=== PATIENT | female | born 1935 | race Two or more races ===

== ENCOUNTER → 2020-11-16 13:26 | Outpatient (CLI) | payer MEDICARE, OTHER, SELFPAY ==
[2020-11-16 14:24] VITALS: BP 121/35; PULSE 65; RESP 18; TEMP 36; O2SAT 97; BMI 25.4
[2020-11-16] MEDS: 0.9% NaCl Peripheral Flush Adult/Peds IV (14:41)
[2020-11-16] MEDS: Acetaminophen 325 MG Tablet 650 MG PO (14:44)
[2020-11-16 15:15] VITALS: BP 148/50; PULSE 65; RESP 16; TEMP 36.1; O2SAT 99
[2020-11-16 16:16] VITALS: BP 149/47; PULSE 62; RESP 16; TEMP 36; O2SAT 97
== END ==
PROVIDERS: PCP Student in an Organized Health Care Education/Training Program; Referring Provider Internal Medicine Hematology & Oncology; Visit Provider Internal Medicine Hematology & Oncology
DX: D46.4 Refractory anemia, unspecified (principal)
CPT/HCPCS: 36430; 86850; 86900; 86901; 86920; 86922; J7040; P9016; A4216

== ENCOUNTER → 2020-12-06 17:13 | Outpatient (CLI) | payer MEDICARE, OTHER, SELFPAY ==
[2020-12-07] MEDS: Acetaminophen 325 MG Tablet 650 MG PO (13:35)
[2020-12-07] MEDS: 0.9% NaCl Peripheral Flush Adult/Peds IV (13:36)
[2020-12-07 13:37] VITALS: BP 132/43; PULSE 62; RESP 16; TEMP 36.4; O2SAT 100; BMI 25.2
[2020-12-07 14:06] VITALS: BP 132/44; PULSE 63; RESP 16; TEMP 36.4; O2SAT 99
[2020-12-07 15:03] VITALS: BP 147/49; PULSE 62; RESP 18; TEMP 36.7
[2020-12-07 16:00] VITALS: BP 149/57; PULSE 63; RESP 16; TEMP 36.4; O2SAT 98
== END ==
PROVIDERS: PCP Student in an Organized Health Care Education/Training Program; Referring Provider Internal Medicine Hematology & Oncology; Visit Provider Internal Medicine Hematology & Oncology
DX: D46.4 Refractory anemia, unspecified (principal)
CPT/HCPCS: 36430; 86850; 86900; 86901; 86920; 86922; J7040; P9040; A4216

== ENCOUNTER → 2021-01-11 12:03 | Outpatient (CLI) | payer MEDICARE, OTHER, SELFPAY ==
[2021-01-11 12:43] VITALS: BP 107/36; PULSE 72; RESP 16; TEMP 36.9; O2SAT 100
[2021-01-11] MEDS: Acetaminophen 325 MG Tablet 650 MG PO (13:08)
[2021-01-11] MEDS: 0.9% NaCl Peripheral Flush Adult/Peds IV (13:09)
[2021-01-11 13:27] VITALS: BP 106/30; PULSE 72; RESP 16; TEMP 36.8; O2SAT 100
[2021-01-11 15:10] VITALS: BP 125/52; PULSE 72; RESP 16; TEMP 36.6; O2SAT 100
== END ==
PROVIDERS: PCP Student in an Organized Health Care Education/Training Program; Referring Provider Internal Medicine Hematology & Oncology; Visit Provider Internal Medicine Hematology & Oncology
DX: D46.4 Refractory anemia, unspecified (principal)
CPT/HCPCS: 36430; 86850; 86900; 86901; 86920; 86922; J7040; P9040; A4216

== ENCOUNTER → 2021-02-01 08:06 | Outpatient (CLI) | payer MEDICARE, OTHER, SELFPAY ==
[2021-02-01] VITALS (8 sets, daily range): BP systolic 110–131; BP diastolic 47–57; PULSE 71–78; RESP 16; TEMP 36.6–37.1; O2SAT 92–100
== END ==
PROVIDERS: PCP Student in an Organized Health Care Education/Training Program; Referring Provider Internal Medicine Hematology & Oncology; Visit Provider Internal Medicine Hematology & Oncology
DX: D46.20 Refractory anemia with excess of blasts, unspecified (principal)
CPT/HCPCS: 36430; 86850; 86900; 86901; 86920; 86922; J7050; P9016; A4216

== ENCOUNTER 2021-03-01 13:00 | Outpatient (CLI) | payer MEDICARE, OTHER, SELFPAY ==
[2021-03-01] MEDS: Acetaminophen 325 MG Tablet 650 MG PO (13:18)
[2021-03-01] MEDS: 0.9% NaCl Peripheral Flush Adult/Peds IV (13:23)
[2021-03-01 13:36] VITALS: BP 118/36; RESP 16; TEMP 36.8; O2SAT 96; BMI 27.1
[2021-03-01 14:37] VITALS: BP 111/43; PULSE 73; RESP 16; TEMP 36.6; O2SAT 100
[2021-03-01 15:55] VITALS: BP 149/53; PULSE 73; RESP 16; TEMP 36.6; O2SAT 100
[2021-03-01 16:36] VITALS: BP 127/51; PULSE 72; RESP 16; TEMP 36.5; O2SAT 100
== END 2021-03-01 23:59 | disposition short-term general hospital (02) ==
PROVIDERS: PCP Student in an Organized Health Care Education/Training Program; Referring Provider Internal Medicine Hematology & Oncology; Visit Provider Internal Medicine Hematology & Oncology
DX: D46.4 Refractory anemia, unspecified (principal)
CPT/HCPCS: 36430; 86850; 86900; 86901; 86920; 86922; J7040; P9016; A4216

== ENCOUNTER 2021-04-05 12:52 | Outpatient (CLI) | payer MEDICARE, OTHER, SELFPAY ==
[2021-04-05] MEDS: Acetaminophen 325 MG Tablet 650 MG PO (13:37)
[2021-04-05 13:39] VITALS: BP 107/31; PULSE 85; RESP 16; TEMP 36.4; O2SAT 94
[2021-04-05] MEDS: 0.9% NaCl Peripheral Flush Adult/Peds IV (13:39)
[2021-04-05 14:31] VITALS: BP 113/32; PULSE 71; RESP 16; TEMP 36.1; O2SAT 93
[2021-04-05 16:01] VITALS: BP 119/38; PULSE 73; RESP 16; TEMP 36.3; O2SAT 95
== END 2021-04-05 23:59 | disposition home or self-care (01) ==
LOC: MEDOUTP 12:54
PROVIDERS: PCP Student in an Organized Health Care Education/Training Program; Referring Provider Internal Medicine Hematology & Oncology; Visit Provider Internal Medicine Hematology & Oncology
DX: D46.4 Refractory anemia, unspecified (principal)
CPT/HCPCS: 36430; 86850; 86900; 86901; 86920; 86922; J7040; P9040; A4216

== ENCOUNTER 2021-04-26 08:42 | Outpatient (CLI) | payer MEDICARE, OTHER, SELFPAY ==
[2021-04-26] MEDS: Acetaminophen 325 MG Tablet 650 MG PO (08:55)
[2021-04-26 09:21] VITALS: BP 106/38; PULSE 73; RESP 16; TEMP 36.3; O2SAT 95
[2021-04-26] MEDS: 0.9% NaCl Peripheral Flush Adult/Peds IV (09:24)
[2021-04-26 09:46] VITALS: BP 107/44; RESP 18; TEMP 36.2
[2021-04-26 10:46] VITALS: BP 114/76; PULSE 72; RESP 16; TEMP 36.2
[2021-04-26 12:00] VITALS: BP 131/57; PULSE 73; RESP 16; TEMP 36.2
== END 2021-04-26 23:59 | disposition home or self-care (01) ==
LOC: MEDOUTP 08:42
PROVIDERS: PCP Student in an Organized Health Care Education/Training Program; Referring Provider Internal Medicine Hematology & Oncology; Visit Provider Internal Medicine Hematology & Oncology
DX: D46.4 Refractory anemia, unspecified (principal)
CPT/HCPCS: 36430; 86850; 86900; 86901; 86920; 86922; J7040; P9040; A4216

== ENCOUNTER → 2021-06-28 | Outpatient (CLI) | payer MEDICARE, OTHER, SELFPAY ==
[2021-06-28] MEDS: 0.9% NaCl Peripheral Flush Adult/Peds IV (11:34)
[2021-06-28] MEDS: Acetaminophen 325 MG Tablet 650 MG PO (11:37)
[2021-06-28 11:47] VITALS: BP 115/68; PULSE 75; RESP 16; TEMP 36.1; O2SAT 100; BMI 26.5
[2021-06-28 12:15] VITALS: BP 111/49; PULSE 81; RESP 16; TEMP 36.4; O2SAT 99
[2021-06-28 13:15] VITALS: BP 127/38; PULSE 72; RESP 18; TEMP 36.3
== END | disposition home or self-care (01) ==
LOC: MEDOUTP 11:23
PROVIDERS: PCP Student in an Organized Health Care Education/Training Program; Referring Provider Internal Medicine Hematology & Oncology; Visit Provider Internal Medicine Hematology & Oncology
DX: D46.0 Refractory anemia without ring sideroblasts, so stated (principal)
CPT/HCPCS: 36430; 86850; 86900; 86901; 86920; 86922; J7040; P9040; A4216

== ENCOUNTER → 2021-07-19 | Outpatient (CLI) | payer MEDICARE, OTHER, SELFPAY ==
[2021-07-19 11:33] VITALS: BP 122/46; PULSE 73; RESP 16; TEMP 36.1; O2SAT 100
[2021-07-19 11:54] VITALS: BP 119/45; PULSE 79; RESP 12; TEMP 36.6; O2SAT 99
[2021-07-19 12:54] VITALS: BP 118/42; PULSE 73; RESP 12; TEMP 36.6; O2SAT 96
== END | disposition home or self-care (01) ==
LOC: MEDOUTP 10:40
PROVIDERS: PCP Student in an Organized Health Care Education/Training Program; Referring Provider Internal Medicine Hematology & Oncology; Visit Provider Internal Medicine Hematology & Oncology
DX: Z51.89 Encounter for other specified aftercare (principal)
CPT/HCPCS: 36430; 86850; 86900; 86901; 86920; 86922; J7030; P9040

== ENCOUNTER → 2021-08-09 | Outpatient (CLI) | payer MEDICARE, OTHER, SELFPAY ==
[2021-08-09 08:44] VITALS: BP 127/54; PULSE 74; RESP 16; TEMP 36.6; O2SAT 98; BMI 25.9
[2021-08-09 09:23] VITALS: BP 101/50; PULSE 71; RESP 16; TEMP 36.3; O2SAT 98
[2021-08-09 10:21] VITALS: BP 138/47; PULSE 73; RESP 16; TEMP 36.4; O2SAT 98
[2021-08-09 10:51] VITALS: BP 145/55; PULSE 74; RESP 16; TEMP 36.5; O2SAT 95
== END | disposition home or self-care (01) ==
LOC: MEDOUTP 08:34
PROVIDERS: PCP Student in an Organized Health Care Education/Training Program; Referring Provider Internal Medicine Hematology & Oncology; Visit Provider Internal Medicine Hematology & Oncology
DX: D46.9 Myelodysplastic syndrome, unspecified (principal); Z51.89 Encounter for other specified aftercare
CPT/HCPCS: 36430; 86850; 86900; 86901; 86920; 86922; J7030; P9016; A4216

== ENCOUNTER → 2021-09-20 | Outpatient (CLI) | payer MEDICARE, OTHER, SELFPAY ==
[2021-09-20 10:58] VITALS: BP 100/46; PULSE 64; RESP 14; TEMP 36.1; O2SAT 97; BMI 26.4
[2021-09-20 11:35] VITALS: BP 98/45; PULSE 82; RESP 16; TEMP 36.2; O2SAT 99
[2021-09-20 12:43] VITALS: BP 123/46; PULSE 80; TEMP 35.8; O2SAT 100
[2021-09-20 13:18] VITALS: BP 128/53; PULSE 82; RESP 14; TEMP 36.1; O2SAT 100
== END | disposition home or self-care (01) ==
LOC: MEDOUTP 10:33
PROVIDERS: PCP Student in an Organized Health Care Education/Training Program; Visit Provider Internal Medicine Hematology & Oncology
DX: D46.0 Refractory anemia without ring sideroblasts, so stated (principal)
CPT/HCPCS: 36430; 86850; 86900; 86901; 86920; 86922; J7040; P9016; A4216

== ENCOUNTER → 2021-11-21 | Outpatient (CLI) | payer MEDICARE, OTHER, SELFPAY | END | disposition home or self-care (01) | LOC: LABSPEC 17:20 | PROVIDERS: PCP Student in an Organized Health Care Education/Training Program; Referring Provider Internal Medicine Hematology & Oncology; Visit Provider Internal Medicine Hematology & Oncology | DX: D46.9 Myelodysplastic syndrome, unspecified (principal) | CPT/HCPCS: 86850; 86900; 86901; 86920; 86922 ==

== ENCOUNTER → 2021-11-22 | Outpatient (CLI) | payer MEDICARE, OTHER, SELFPAY ==
[2021-11-22 10:50] VITALS: BP 126/82; PULSE 76; RESP 16; TEMP 36.4; O2SAT 100; BMI 27.1
[2021-11-22] MEDS: 0.9% NaCl Peripheral Flush Adult/Peds IV (11:07)
[2021-11-22 11:21] VITALS: BP 141/50; PULSE 76; RESP 16; TEMP 36.2
[2021-11-22 12:59] VITALS: BP 133/56; PULSE 74; RESP 18; TEMP 36; O2SAT 98
== END | disposition home or self-care (01) ==
LOC: MEDOUTP 10:17
PROVIDERS: PCP Student in an Organized Health Care Education/Training Program; Referring Provider Internal Medicine Hematology & Oncology; Visit Provider Internal Medicine Hematology & Oncology
DX: D46.20 Refractory anemia with excess of blasts, unspecified (principal)
CPT/HCPCS: 36430; 86850; 86900; 86901; 86920; 86922; J7040; P9016; A4216

== ENCOUNTER → 2022-01-24 | Outpatient (CLI) | payer MEDICARE, OTHER, SELFPAY ==
[2022-01-24 08:30] VITALS: BP 138/48; PULSE 75; RESP 14; TEMP 35.9; O2SAT 100; BMI 27.3
[2022-01-24] MEDS: 0.9% NaCl Peripheral Flush Adult/Peds IV (08:30)
[2022-01-24 09:14] VITALS: BP 143/45; PULSE 75; TEMP 36; O2SAT 100
[2022-01-24 10:11] VITALS: BP 134/53; PULSE 74; RESP 16; TEMP 36.1; O2SAT 100
[2022-01-24 11:11] VITALS: BP 154/65; PULSE 80; RESP 12; TEMP 36.3; O2SAT 100
[2022-01-24 11:15] VITALS: BP 154/64; PULSE 73; TEMP 36; O2SAT 100
[2022-01-24 13:08] VITALS: BP 144/67; PULSE 84; RESP 12; TEMP 36.1; O2SAT 100
== END | disposition home or self-care (01) ==
LOC: MEDOUTP 08:07
PROVIDERS: PCP Student in an Organized Health Care Education/Training Program; Referring Provider Internal Medicine Hematology & Oncology; Visit Provider Internal Medicine Hematology & Oncology
DX: D46.9 Myelodysplastic syndrome, unspecified (principal)
CPT/HCPCS: 36430; 86850; 86900; 86901; 86920; 86922; J7040; P9016; A4216

== ENCOUNTER → 2022-03-14 | Outpatient (CLI) | payer MEDICARE, OTHER, SELFPAY ==
[2022-03-14 09:51] VITALS: BP 96/44; PULSE 76; RESP 16; TEMP 35.9
[2022-03-14] MEDS: 0.9% NaCl Peripheral Flush Adult/Peds IV (10:00)
[2022-03-14 10:34] VITALS: BP 106/53; PULSE 73; RESP 16; TEMP 36.4
[2022-03-14 11:34] VITALS: BP 138/71; PULSE 78; RESP 16; TEMP 36.3
== END | disposition home or self-care (01) ==
LOC: MEDOUTP 09:33
PROVIDERS: PCP Student in an Organized Health Care Education/Training Program; Referring Provider Internal Medicine Hematology & Oncology; Visit Provider Internal Medicine Hematology & Oncology
DX: D46.9 Myelodysplastic syndrome, unspecified (principal)
CPT/HCPCS: 36430; 86850; 86900; 86901; 86920; 86922; J7040; P9016; A4216

== ENCOUNTER → 2022-03-28 | Outpatient (CLI) | payer MEDICARE, OTHER, SELFPAY ==
[2022-03-28] MEDS: 0.9% NaCl Peripheral Flush Adult/Peds IV (12:07)
[2022-03-28 12:45] VITALS: BP 135/66; PULSE 80; RESP 16; TEMP 36.1; O2SAT 99
[2022-03-28 13:45] VITALS: BP 150/66; PULSE 78; RESP 16; TEMP 36.3; O2SAT 100
== END | disposition home or self-care (01) ==
PROVIDERS: PCP Student in an Organized Health Care Education/Training Program; Referring Provider Internal Medicine Hematology & Oncology; Visit Provider Internal Medicine Hematology & Oncology
DX: D46.9 Myelodysplastic syndrome, unspecified (principal)
CPT/HCPCS: 36430; 86850; 86900; 86901; 86920; 86922; J7040; P9016; A4216

== ENCOUNTER → 2022-04-18 | Outpatient (CLI) | payer MEDICARE, OTHER, SELFPAY ==
[2022-04-18 08:53] VITALS: BP 116/37; PULSE 75; RESP 14; TEMP 36; O2SAT 96; BMI 27.3
[2022-04-18 09:29] VITALS: BP 105/38; PULSE 73; RESP 14; TEMP 36.2; O2SAT 97
[2022-04-18 10:29] VITALS: BP 124/52; PULSE 73; RESP 14; TEMP 36.2; O2SAT 99
[2022-04-18 11:27] VITALS: BP 125/59; PULSE 74; RESP 16; TEMP 36.3; O2SAT 99
== END | disposition home or self-care (01) ==
LOC: MEDOUTP 08:29
PROVIDERS: PCP Student in an Organized Health Care Education/Training Program; Referring Provider Internal Medicine Hematology & Oncology; Visit Provider Internal Medicine Hematology & Oncology
DX: D46.9 Myelodysplastic syndrome, unspecified (principal)
CPT/HCPCS: 36430; 86850; 86900; 86901; 86920; 86922; J7040; P9016

== ENCOUNTER 2022-05-09 13:14 | Inpatient (IN) | payer MEDICARE, OTHER, SELFPAY ==
[2022-05-09] VITALS (11 sets, daily range): BP systolic 114–182; BP diastolic 42–88; PULSE 71–86; RESP 16–25; TEMP 36.8–37.7; O2SAT 92–99; BMI 29.1; BMI 29.2
--- NOTE | 2022-05-09 13:34 | ED.RN ---
PT FAMILY BRIAN JACKELIN PHONE NUMBER [phone].
--- NOTE | 2022-05-09 14:16 | EKG12_ITS ---
Test Reason : CP Blood Pressure : / mmHG Vent. Rate : 072 BPM Atrial Rate : 082 BPM P-R Int : 000 ms QRS Dur : 164 ms QT Int : 410 ms P-R-T Axes : 000 -72 049 degrees QTc Int : 448 ms Ventricular-paced rhythm Abnormal ECG Confirmed by PALOMA ROOT, NISHI ([id number]), health editor LENORE VERGARA ([id number]) on 05/15/2022 6:55:08 AM Referred By: SHANTAL/NITHIN Confirmed By:SEPIDEH DOW MD
--- NOTE | 2022-05-09 14:17 | CT_ITS ---
STUDY: CT ABDOMEN AND PELVIS WITHOUT CONTRAST REASON FOR EXAM: Female, 86 years old. Chest pain. Shortness of breath during transfusion. Left lower quadrant pain. RADIATION DOSAGE (If Supplied By Facility): CTDIvol = ( 9.34 ) mGy, DLP = ( 454.94 ) mGycm TECHNIQUE: Transaxial images were obtained from the dome of the diaphragm to the symphysis pubis without oral contrast, and without intravenous contrast. Sagittal and coronal images were reconstructed. Individualized dose optimization techniques were used for this CT. COMPARISON: None. FINDINGS: Small bilateral pleural effusions left slightly greater than right with increased markings at the lung bases suggestive of atelectasis. Focal calcified plaques at the right lung base. Dual-chamber pacemaker is seen. Coronary artery calcification. There is calcification of the mitral valve annulus. Cardiomegaly. Normal liver. Small gallstones. Normal spleen. Normal pancreas. Normal bilateral adrenal glands. Normal right kidney. Normal left kidney. Mild degree of nonspecific bilateral perinephric stranding. Normal visualized stomach. Normal small intestine. There are scattered colonic diverticula consistent with diverticulosis. The appendix is visualized and appears normal. There is diffuse atherosclerotic calcification of the abdominal aorta and its major visceral branches, without a demonstrated aneurysm. Normal inferior vena cava. Normal retroperitoneum. Normal urinary bladder. Calcified fibroid uterus. Normal abdominal wall. There are diffuse degenerative changes of the visualized lumbar spine. The patient is status post open reduction and internal fixation of bilateral intertrochanteric fractures. CT/Abdomen/Pelvis without Cont IMPRESSION: Small bilateral pleural effusions with increased markings at the lung bases likely worse on the left side. Small gallstones. Electronically Signed: Shiva Reynolds MD at 14:59 EDT ,
[2022-05-09 14:39] LABS: Absolute Lymphocyte Count 1.66 X10^3/uL (0.83-4.51); Basophil# 0.23 X10^3/uL; Basophil% 0.8 % (0-1); Eosinophil# 0.05 X10^3/uL; Eosinophils% 0.2 % (0-5); Hematocrit 26.6 % (37-47); Lymphocyte # 1.66 X10^3/ul (0.83-4.51); Lymphocyte % 5.9 % (19-41); Mean Corp Hgb Conc 30.1 g/dL (32-36); Mean Corpuscular Hgb 31.1 pg (27.0-32.0); Mean Corpuscular Volume 103.5 fL (81-99); Mean Platelet Vol. 12.5 fl (6.2-12.0); Monocyte# 2.13 X10^3/uL; Monocyte% 7.6 % (0-10); NRBC Flagged by Analyzer 15.4 % (0-5); Neutrophil # 23.03 X10^3/uL (2.7-7.7); Neutrophil % 82.3 % (47-70); POSITIVE COUNT YES; POSITIVE DIFFERENTIAL YES; POSITIVE MORPHOLOGY YES; Platelet Count 276 K/mm3 (150-450); RBC Distribution Width CV 28.8 % (11.6-14.6); RBC Distribution Width SD 99.7 fl (35.1-43.9); Red Blood Count 2.57 M/mm3 (4.2-5.4)
--- NOTE | 2022-05-09 14:40 | RAD_ITS ---
STUDY: X-RAY CHEST REASON FOR EXAM: Female, 86 years old. Shortness of breath and abdominal pain during transfusion. TECHNIQUE: Single AP portable view of the chest. COMPARISON: None. FINDINGS: EKG electrodes are seen. Increased markings at the left lung base with blunting of the left costophrenic angle suggestive of left basilar atelectasis and/or infiltrate. There is moderate cardiac enlargement. Calcification of the mitral valve annulus. A left-sided dual-chamber pacemaker is seen. Normal mediastinum and leo. Normal visualized pulmonary arteries. There is atherosclerotic calcification of the aortic arch with tortuosity. There are diffuse degenerative changes of the visualized thoracic spine. There is degenerative osteoarthritis of the bilateral shoulders. There is no demonstrated abnormality of the visualized soft tissue structures of the upper abdomen. RAD/Chest 1 View (Portable) IMPRESSION: Pleural parenchymal changes at the left lung base suggestive of atelectasis and/or early infiltrate. Follow-up recommended. Electronically Signed: Shiva Reynolds MD at 14:54 EDT ,
[2022-05-09 14:41] LABS: Differential Indicated SCAN CRITERIA MET
[2022-05-09 15:00] LABS: AST(SGOT) 96 U/L (15-37); Alanine Aminotransfer ALT/SGPT 41 U/L (13-56); Albumin, Serum 3.9 g/dL (3.2-5.0); Alkaline Phosphatase 90 U/L (45-117); Anion Gap 12 (5-15); BUN 35 mg/dL (7-18); BUN/Creat Ratio 18.8 RATIO (10-20); Bilirubin, Direct 1.36 mg/dL (0.00-0.30); Calcium,Total 9.2 mg/dL (8.5-10.1); Chloride 102 mmol/L (98-107); Creatinine, Serum 1.86 mg/dL (0.55-1.02); EST Glomerular Filtration Rate 27 mL/min (>60); Est Glom Filt Rate - Afr Amer 33 mL/min (>60); Estimated Creatinine Clearance 17.96 ml/min; Globulin 3.1 g/dL (2.2-4.2); Glucose 155 mg/dL (74-106); Lipase 96 U/L (73-393); Potassium 4.5 mmol/L (3.5-5.1); Sodium Level 138 mmol/L (136-145); Troponin-I HS (w/2H Reflex) 31 pg/mL (3.0-54.0)
--- NOTE | 2022-05-09 15:07 | US_ITS ---
STUDY: ABDOMINAL ULTRASOUND - RIGHT UPPER QUADRANT REASON FOR VISIT: Female, 86 years old. ABDOMEN PAIN RUQ pain, abnormal labs TECHNIQUE: Ultrasound evaluation of the right upper quadrant was performed with real-time and static centeno-scale imaging. TECHNICAL QUALITY: Adequate. COMPARISON: 05.09.22 ct FINDINGS: Liver: There is normal echogenicity of the liver. The bile ducts are within normal limits. There is hepatic color flow. The direction of portal flow is hepatopetal. There is no demonstrated mass lesion. Gallbladder: Normal distended gallbladder. The gallbladder wall measures 2.3 mm. There is a negative sonographic Daniel''s sign. There is no pericholecystic fluid. There are multiple echogenic structures within the gallbladder, consistent with multiple gallstones. Common Bile Duct (C.B.D.): The common bile duct measures ( in mm): 6.8 Pancreas: Normal size of the head, body of the pancreas. There is normal echogenicity of the pancreas. There is no demonstrated pancreatic mass or cyst. Right Kidney: Normal size of the right kidney. The right kidney measures 8.5 cm. . Normal renal cortex. There is no demonstrated renal mass or cyst. There is no right hydronephrosis. Aorta: It is not visualized. There is too much overlying bowel gas. . US/Gallbladder IMPRESSION: GALLSTONES Note: Renal size measurements and size measurements of other organs etc may vary depending on modality and electronic console display operator dependent variations in measurements. (i.e. Measuring a kidney on an US does not correlate with an exact same measurement on a CT.) Electronically Signed: Arley Willis MD at 16:41 EDT ,
[2022-05-09 15:21] LABS: International Normalized Ratio 2.6; Prothrombin Time (Protime)PT. 27.5 SECONDS (11.7-14.9)
--- NOTE | 2022-05-09 15:47 | EX.ED.DYSGE1 ---
HPI History of Present Illness Chief Complaint: Allergic Reaction Informant: patient, family and other (Housestaff) Narrative Narrative: Patient presents from the infusion center as a rapid response. Patient was reportedly getting packed RBCs which she has gotten multiple times before. Apparently patient started complaining of chest and abdominal pain and feeling short of breath. On arrival to the emergency room she told staff that she is normally on 6 L of oxygen so she was placed on this. At the time of my exam she tells me she is normally on 2 to 3 L. She is a very poor historian. I was able to find a recent ER visit to [facility] and [facility]. It appears the patient has a history of MDS, COPD, chronic kidney disease, CHF, diabetes, A-fib, brain tumor, pacemaker. She is on Coumadin. Patient is laying on her left side but does roll to her back for exam. She is complaining of pain to both the epigastric/right upper quadrant area as well as the left lower quadrant near her left hip. She denies any recent fall. [facility] Medical History Afib Anemia CHF (congestive heart failure) CKD (chronic kidney disease) COPD (chronic obstructive pulmonary disease) Diabetes Hypothyroid Myelodysplastic syndrome Pacemaker Home Medications calcium carbonate 400 mg calcium (1,000 mg) chewable tablet (Tums Ultra) 400 mg PO DAILY 12/07/20 [History Last Taken Unknown] ergocalciferol (vitamin D2) 1,250 mcg (50,000 unit) capsule 1,250 mcg PO UD 12/07/20 [History Last Taken 04/30/22] folic acid 400 mcg tablet 0.4 mg PO DAILY 12/07/20 [History Last Taken 05/08/22] montelukast 10 mg tablet (Singulair) 10 mg PO DAILY 12/07/20 [History Last Taken 05/08/22] warfarin 5 mg tablet 5 mg PO DAILY 12/07/20 [History Last Taken 05/08/22] allopurinol 100 mg tablet 100 mg PO DAILY 06/28/21 [History Last Taken 05/08/22] calcitriol 0.25 mcg capsule 0.25 mcg PO DAILY 06/28/21 [History Last Taken 05/08/22] furosemide 40 mg tablet 40 mg PO MOTUWETHFR 06/28/21 [History Last Taken 05/08/22] loperamide 2 mg tablet 2 mg PO TIDCM CHRONIC DIARRHEA 06/28/21 [History Last Taken 05/09/22] metoprolol succinate 25 mg tablet,extended release 24 hr 25 mg PO DAILY HEART 06/28/21 [History Last Taken 05/08/22] deferasirox 500 mg dispersible tablet 1,000 mg PO DAILY 03/28/22 [History Last Taken 05/08/22] acetaminophen 500 mg tablet 1,000 mg PO BID PAIN 05/09/22 [History Last Taken 05/09/22] albuterol sulfate 90 mcg/actuation breath activated powder inhaler,sensor 2 inh inhalation Q6H COPD 05/09/22 [History Last Taken 05/08/22] ascorbic acid (vitamin C) 500 mg tablet 500 mg PO DAILY SUPPLEMENT 05/09/22 [History Last Taken 05/08/22] gabapentin 100 mg capsule 200 mg PO BID FOOT PAIN 05/09/22 [History Last Taken 05/09/22] guaifenesin 100 mg/5 mL oral liquid 400 mg PO Q4H PRN Congestion 05/09/22 [History Last Taken 05/09/22] levothyroxine 50 mcg tablet 50 mcg PO DAILY THYROID 05/09/22 [History Last Taken 05/08/22] melatonin 5 mg tablet 5 mg PO QHS SLEEP 05/09/22 [History Last Taken 05/08/22] pantoprazole 40 mg tablet,delayed release 40 mg PO DAILY GERD 05/09/22 [History Last Taken 05/09/22] pyridoxine (vitamin B6) 100 mg tablet 100 mg PO DAILY SUPPLEMENT 05/09/22 [History Last Taken 05/09/22] sodium chloride-aloe vera nasal spray ([place] Saline Gel nasal spray) 1 spray intranasal DAILY PRN DRY NOSE 05/09/22 [History Last Taken 05/08/22] Allergy/AdvReac Type Severity Reaction Status Date / Time digoxin Allergy PT UNSURE Verified 05/09/22 13:15 OF REACTION Family History Other Heart disease Social History (Updated 05/09/22 @ 18:30 by Alana Gerard) housing: assisted living facility Smoking Status: Never smoker alcohol intake: never substance use type: does not use ROS ROS ED Constitutional Constitutional ED: Denies chills or fever(s) Eyes Eyes: Denies blurry vision ENT ENT ED: Denies rhinorrhea or sore throat Cardiovascular Cardiovascular: Reports chest pain Respiratory/Chest Respiratory/Chest: Reports dyspnea Gastrointestinal Gastrointestinal: Reports abdominal pain; Denies vomiting Musculoskeletal Musculoskeletal: Denies neck pain Integumentary Denies abscess Endocrine Endocrinology: Denies cold intolerance or heat intolerance Allergic/Immunologic Allergic/Immunologic ED: Denies mouth swelling or tongue swelling EXAM Physical Exam Const Vital Signs: 05/09/22 13:16 05/09/22 14:12 05/09/22 15:12 Temperature 100 F H Temperature Source Oral Pulse Rate 72 86 73 Respiratory Rate 18 18 25 H Blood Pressure 160/42 H 182/60 H 126/62 H Blood Pressure Mean 81 100 83 Pulse Ox 99 95 92 Oxygen Delivery Method Nasal Cannula Nasal Cannula Nasal Cannula Oxygen Flow Rate (L/min) 6 3 3 05/09/22 16:29 05/09/22 16:37 05/09/22 17:41 Temperature 98.5 F 99 F Temperature Source Oral Temporal Pulse Rate 74 74 Respiratory Rate 17 18 Blood Pressure 114/49 L 130/64 H Blood Pressure Mean 70 86 Pulse Ox 94 96 Oxygen Delivery Method Nasal Cannula Nasal Cannula Oxygen Flow Rate (L/min) 4 Positive well nourished and well developed General Appearance ED: well developed HEENT Reports moist mucous membranes Eyes EOMs intact bilaterally Chest Wall inspection of chest normal and palpation of chest normal Resp Resp Narrative: Diminished bilateral bases. Cardio regular rate and regular rhythm GI GI Narrative: Abdomen soft with diffuse tenderness to palpation. No guarding or rebound. Extremity normal to inspection Neuro Neuro Narrative: Moves all extremities. No focal neurodeficits. Sensorium / Orientation: alert Skin no rashes or lesions noted MDM MDM MDM Narrative Medical decision making narrative: Patient placed on balance bridge inspector. EKG obtained to evaluate for cardiac arrhythmia/ischemia. Labwork obtained to evaluate for leukocytosis, anemia, and electrolyte derangement. CT scan of the flank obtained given her abdominal pain. Portable chest x-ray obtained given her shortness of breath. Lab Data Attestation: I reviewed the patient's lab results. Labs: Laboratory Results - last 24 hr 05/09/22 05/09/22 05/09/22 13:25 13:25 15:02 WBC 28.0 H RBC 2.57 L Hgb 8.0 L Hct 26.6 L MCV 103.5 H MCH 31.1 MCHC 30.1 L RDW Std Deviation 99.7 H RDW Coeff of Anjana 28.8 H Plt Count 276 MPV 12.5 H Immature Gran % (Auto) 3.200 H Neut % (Auto) 82.3 H Lymph % (Auto) 5.9 L Long % (Auto) 7.6 Eos % (Auto) 0.2 Baso % (Auto) 0.8 Absolute Neuts (auto) 23.0 H Absolute Lymphs (auto) 1.66 Nucleated RBC % 15.4 H Differential Comment SCANNED Diff Path Review June foll PT 27.5 H INR 2.6 Sodium 138 Potassium 4.5 Chloride 102 Carbon Dioxide 24.0 Anion Gap 12 BUN 35 H Creatinine 1.86 H Estim Creat Clear Calc 17.96 Est GFR (MDRD) Af Amer 33 L Est GFR (MDRD) Non-Af 27 L BUN/Creatinine Ratio 18.8 Glucose 155 H Calcium 9.2 Total Bilirubin 6.20 H Direct Bilirubin 1.36 H AST 96 H ALT 41 Alkaline Phosphatase 90 Lactate Dehydrogenase Troponin I High Sens 31 Total Protein 7.0 Albumin 3.9 Globulin 3.1 Lipase 96 Urine Color Urine Clarity Urine pH Ur Specific [place] Urine Protein Urine Glucose (UA) Urine Ketones Urine Occult Blood Urine Nitrite Urine Bilirubin Urine Urobilinogen Ur Leukocyte Esterase Urine RBC Urine WBC Ur Squamous Epith Cells Amorphous Sediment Urine Bacteria Urine Mucus 05/09/22 05/09/22 05/09/22 16:20 16:25 16:25 WBC RBC Hgb Hct MCV MCH MCHC RDW Std Deviation RDW Coeff of Anjana Plt Count MPV Immature Gran % (Auto) Neut % (Auto) Lymph % (Auto) Long % (Auto) Eos % (Auto) Baso % (Auto) Absolute Neuts (auto) Absolute Lymphs (auto) Nucleated RBC % Differential Comment Diff Path Review PT INR Sodium Potassium Chloride Carbon Dioxide Anion Gap BUN Creatinine Estim Creat Clear Calc Est GFR (MDRD) Af Amer Est GFR (MDRD) Non-Af BUN/Creatinine Ratio Glucose Calcium Total Bilirubin Direct Bilirubin AST ALT Alkaline Phosphatase Lactate Dehydrogenase 791 H Troponin I High Sens 68 H Total Protein Albumin Globulin Lipase Urine Color [place] Urine Clarity Cloudy Urine pH 5.0 Ur Specific [place] 1.020 Urine Protein 100 H Urine Glucose (UA) Normal Urine Ketones 5 H Urine Occult Blood 250 H Urine Nitrite Negative Urine Bilirubin 1 H Urine Urobilinogen 1 H Ur Leukocyte Esterase 25 H Urine RBC 5-10 SEEN Urine WBC 0 SEEN Ur Squamous Epith Cells 0 SEEN Amorphous Sediment 2+ Urine Bacteria 0 SEEN Urine Mucus 0 SEEN Radiography Chest X-Ray - ED: 1 View, Read by ED Physician and - (Left pleural effusion versus infiltrate.) Diagnostic Testing: Clinical Impression(s) from Imaging Studies Abdomen/Pelvis CT 05/09/22 14:17 IMPRESSION: Small bilateral pleural effusions with increased markings at the lung bases likely worse on the left side. Small gallstones. Electronically Signed: Shiva Reynolds MD at 14:59 EDT , Chest X-Ray 05/09/22 14:40 IMPRESSION: Pleural parenchymal changes at the left lung base suggestive of atelectasis and/or early infiltrate. Follow-up recommended. Electronically Signed: Shiva Reynolds MD at 14:54 EDT , Gallbladder Ultrasound 05/09/22 15:07 IMPRESSION: GALLSTONES Note: Renal size measurements and size measurements of other organs etc may vary depending on modality and scrap shear operator dependent variations in measurements. (i.e. Measuring a kidney on an US does not correlate with an exact same measurement on a CT.) Electronically Signed: Arley Willis MD at 16:41 EDT , EKG Initial EKG: Attestation: I personally reviewed and interpreted this EKG as follows: Interpretation: - (Ventricular paced rhythm at 72 bpm. No obvious ischemia.) Differential Diagnosis Chest pain/SOB: pulmonary embolism Reason(s) PE less likely: Positive for patient taking oral anticoagulants and ACS ACS: Positive for no evidence of ACS based on cardiac biomarkers and EKG without ischemia Treatment and Re-Evaluation :: CBC was a white count of 28,000 with 82% neutrophils. I was able to find in [facility] lab work that she had drawn yesterday. At that time her white count was 8.24. Her chemistry studies today reveal a BUN of 35 and a creatinine of 1.86. In February of this year her creatinine was 1.36. LFTs significant for total bili of 6.20 and a direct bili of 1.36. In February her bilirubin level was 0.8. CT scan of the flank reveals bilateral pleural effusions and small gallstones. Given the patient's elevated bilirubin level as well as upper abdominal tenderness she is sent for an ultrasound of the gallbladder. This reveals evidence of gallstones but no obvious wall thickening or pericholecystic fluid. Chest x-ray read by radiology agrees with pleural effusion with possible early infiltrate. Given the patient's increased shortness of breath and elevated white count she is covered with a dose of Zosyn at this time. On repeat evaluation at this time her pain is improved. I will speak with hospitalist regarding admission. Just prior to speaking with the hospitalist I received a phone call from Dr. Henning. He had been called from the infusion center with possible reaction. He had ordered Benadryl and Tylenol to be given. He states he was told by staff that the patient was so sleepy after her Benadryl they were unable to give her Tylenol. When she started complaining of chest pain they transferred her to the ER. I did review the patient's presentation along with her current labs. He is concerned that this may be a transfusion reaction. He asked that I speak with the blood bank and have them run testing for transfusion reaction. Hospitalist was updated with this and I spoke with blood bank. Addendum: I received a phone call from the blood bank this evening. She states that they did do their review and did not find any discrepancies other than the patient was OSIRIS negative prior to her transfusion and is currently testing OSIRIS positive. I also updated the hospitalist. Discharge Plan Dx/Rx/DC Orders Clinical Impression: Leukocytosis, Abdominal pain Disposition Disposition: Acute Care Hospital [facility] Discharge Date/Time: 05/09/22 17:54
[2022-05-09 16:23] LABS: Bacteria 0 SEEN /hpf (None Seen); Mucous, Urine 0 SEEN /hpf (<or=2+); Squamous Epithelial Cells - UA 0 SEEN /hpf (5-10); White Blood Cells 0 SEEN /hpf (0-5)
[2022-05-09 16:30] LABS: Differential Comment SCANNED
[2022-05-09 16:35] LABS: Reflex Troponin-HS? (from REC) Y
[2022-05-09 16:42] LABS: Color, Urine Amber (Yellow); Glucose, Dipstick Normal (Normal); Ketone-Dipstick 5 mg/dl (Negative); Leukocyte Esterase-Dipstick 25 /ul (Negative); Nitrite-Dipstick Negative (Negative); Occult Blood-Urine 250 /ul (Negative); Protein-Dipstick 100 mg/dl (Negative); Urine Clarity Cloudy (Clear); Urine Urobilinogen 1 mg/dl (Normal)
[2022-05-09 16:50] LABS: Amorphous Sediment 2+; Red Blood Cells-Urine 5-10 SEEN /hpf (0-5); Urine Bilirubin Dipstick 1 mg/dL (Negative)
[2022-05-09 17:04] LABS: Troponin-I HS 68 pg/mL (3.0-54.0)
--- NOTE | 2022-05-09 17:53 | NM_ITS ---
CLINICAL: 86-year-old female with history of right upper quadrant abdominal pain. RADIONUCLIDE HEPATOBILIARY SCINTIGRAPHY COMPARISON: Abdominal ultrasound report 05/09/2022 FINDINGS: Following the intravenous administration of 5.3 mCi of 99m Tc Mebrofenin, hepatobiliary images reveal: 1. Relatively prompt and homogeneous radiopharmaceutical concentration is noted by a normal sized liver. No parenchymal defects are identified. 2. Gallbladder activity is identified at 15 minutes post radiopharmaceutical administration. 3. Small intestinal tract is observed at 15 minutes following tracer injection. 4. Washout of the radiopharmaceutical by the hepatic parenchyma appears qualitatively normal. Cholecystokinin (0.02 ug/kg) was administered intravenously over a 30-minute period. The post CCK gallbladder ejection fraction calculated at 20 minutes following Cholecystokinin administration was noted to be < 5 % (normal greater than 35%). IA/Hepatobilliary Img w/Pharm Int IMPRESSION: 1. ABNORMAL 99m Tc Mebrofenin hepatobiliary imaging examination with Cholecystokinin. A. A gallbladder ejection fraction calculated to be less than 35% following the administration of Cholecystokinin is consistent with the presence of functional hepatobiliary disease (gallbladder and/or sphincter of Oddi dyskinesia) and/or organic hepatobiliary disease (chronic acalculous cholecystitis and/or cystic duct syndrome) in patients with intermediate to high pretest probabilities of hepatobiliary illness. (Alan Estevez et al, Journal of Nuclear Medicine 32:1695, 1991). Electronically Signed: Yared Stevens, at 10:57 EDT ,
--- NOTE | 2022-05-09 17:53 | ED.RN ---
DR NEWBERRY AWARE PT [facility] SEPSIS ALERT. NOT SEPSIS.
--- NOTE | 2022-05-09 17:57 | PCM.HP.STD ---
HPI - General General Date of Admission: 05/09/22 Date of Service: 05/09/22 Chief Complaint: abdominal pain HPI Narrative APRIL BATRES, is a 86 F who presents to the emergency room with complaints of abdominal pain. Patient has a history of myelodysplastic syndrome and was getting a transfusion today when she complains of the nurse at her lips were feeling tingly and they reached out to Dr. Henning, hematology, who recommended patient receiving Benadryl and acetaminophen. Patient did receive the Benadryl and then became groggy but then complained of chest and abdominal pain. Patient's oxygenation worsened and required increased oxygen. Rapid response team was called and patient was complaining of chest and abdominal pain but had just received Benadryl and was delirious. Patient presented to the emergency room from the infusion center via rapid response team. In the emergency room, patient was noted to have white count of 28, hemoglobin of 8 and platelets of 276. Patient is on warfarin and her INR was 2.6. Creatinine was noted to be 1.86 and her bilirubin was 6.2 whereas apparently a couple months prior it was normal. Troponins did trend up from 31-68. Patient did receive Zosyn in the emergency room chest x-ray was completed showing possible infiltrate. Currently, the patient feels better and is no longer having any chest or abdominal pain. Patient did have a CT as well as a gallbladder ultrasound that did show gallstones but no gallbladder wall thickening nor any choledocholthiasis. [facility] Medical History Afib Anemia CHF (congestive heart failure) CKD (chronic kidney disease) COPD (chronic obstructive pulmonary disease) Diabetes Hypothyroid Myelodysplastic syndrome Pacemaker Home Medications calcium carbonate 400 mg calcium (1,000 mg) chewable tablet (Tums Ultra) 400 mg PO DAILY 12/07/20 [History Last Taken Unknown] ergocalciferol (vitamin D2) 1,250 mcg (50,000 unit) capsule 1,250 mcg PO QWEEK 12/07/20 [History Last Taken Unknown] folic acid 400 mcg tablet 0.4 mg PO DAILY 12/07/20 [History Last Taken Unknown] montelukast 10 mg tablet (Singulair) 10 mg PO DAILY 12/07/20 [History Last Taken Unknown] warfarin 5 mg tablet 5 mg PO DAILY 12/07/20 [History Last Taken Unknown] allopurinol 100 mg tablet 100 mg PO DAILY 06/28/21 [History Last Taken Unknown] calcitriol 0.25 mcg capsule 0.25 mcg PO DAILY 06/28/21 [History Last Taken Unknown] furosemide 40 mg tablet 40 mg PO DAILY 06/28/21 [History Last Taken Unknown] loperamide 2 mg tablet 2 mg PO Q4H PRN Diarrhea 06/28/21 [History Last Taken Unknown] metoprolol succinate 25 mg tablet,extended release 24 hr 25 mg PO BID 06/28/21 [History Last Taken Unknown] deferasirox 500 mg dispersible tablet 1,000 mg PO DAILY 03/28/22 [History Last Taken Unknown] acetaminophen 500 mg tablet 1,000 mg PO BID PAIN 05/09/22 [History Last Taken 05/09/22] albuterol sulfate 90 mcg/actuation breath activated powder inhaler,sensor 2 inh inhalation Q6H COPD 05/09/22 [History Last Taken 05/08/22] ascorbic acid (vitamin C) 500 mg tablet 500 mg PO DAILY SUPPLEMENT 05/09/22 [History Last Taken 05/08/22] gabapentin 100 mg capsule 200 mg PO BID FOOT PAIN 05/09/22 [History Last Taken 05/09/22] guaifenesin 100 mg/5 mL oral liquid 400 mg PO Q4H PRN Congestion 05/09/22 [History Last Taken 05/09/22] levothyroxine 50 mcg tablet 50 mcg PO DAILY THYROID 05/09/22 [History Last Taken 05/08/22] melatonin 5 mg tablet 5 mg PO QHS SLEEP 05/09/22 [History Last Taken 05/08/22] pantoprazole 40 mg tablet,delayed release 40 mg PO DAILY GERD 05/09/22 [History Last Taken 05/09/22] pyridoxine (vitamin B6) 100 mg tablet 100 mg PO DAILY SUPPLEMENT 05/09/22 [History Last Taken 05/09/22] sodium chloride-aloe vera nasal spray ([place] Saline Gel nasal spray) 1 spray intranasal DAILY PRN DRY NOSE 05/09/22 [History Last Taken 05/08/22] Allergy/AdvReac Type Severity Reaction Status Date / Time digoxin Allergy PT UNSURE Verified 05/09/22 13:15 OF REACTION Family History (Updated 03/28/23 @ 18:[address] Maynor Kamara DO) Other Heart disease Social History (Updated 05/09/22 @ 18:[address] Maynor Kamara DO) Smoking Status: Never smoker alcohol intake: never substance use type: does not use ROS ROS Narrative Patient was complaining of weight gain but denies any lower extremity edema. Abdominal bloating. All review of systems were negative except as mentioned above in the history of present illness and the other review of systems. Vital Signs Vital Signs Vital Signs: 05/09/22 13:16 05/09/22 14:12 05/09/22 15:12 Temperature 37.7 C H Temperature Source Oral Pulse Rate 72 86 73 Respiratory Rate 18 18 25 H Blood Pressure 160/42 H 182/60 H 126/62 H Blood Pressure Mean 81 100 83 Pulse Ox 99 95 92 Oxygen Delivery Method Nasal Cannula Nasal Cannula Nasal Cannula Oxygen Flow Rate (L/min) 6 3 3 05/09/22 16:29 05/09/22 16:37 05/09/22 17:41 Temperature 36.9 C 37.2 C Temperature Source Oral Temporal Pulse Rate 74 74 Respiratory Rate 17 18 Blood Pressure 114/49 L 130/64 H Blood Pressure Mean 70 86 Pulse Ox 94 96 Oxygen Delivery Method Nasal Cannula Nasal Cannula Oxygen Flow Rate (L/min) 4 Weight Weight: 74.6 kg Body Mass Index (BMI) 29.1 Physical Exam Narrative - Physical Exam General: Alert, Oriented x3, Cooperative HEENT: Atraumatic, PERRLA, EOMI, Normocephalic Oral: Moist Mucosa, No Gingival or Mucosal Lesions/ Ulcerations Neck: Supple, No JVD, Negative Carotid Bruits Lungs: Clear to auscultation, Normal air movement Cardiovascular: Regular rate, Normal S1, Normal S2, No murmurs Abdomen: Protuberant but soft. Bowel Sounds Present, Soft, Non Tender, Non-Distended, No Hepato-splenomegaly Extremities: No clubbing, No cyanosis, No edema, Capillary Refill Less than 3 Seconds Skin: No rashes, No breakdown Musculoskeletal: No Tenderness to Palpation of Joints or Extremities Neurological: Neuro grossly intact Psych/Mental Status: Normal Affect, Appropriate Results Lab / Micro Data Attestation: I reviewed the patient's lab results. Result Diagrams: 05/09/22 13:25 05/09/22 13:25 Labs: Laboratory Results - last 24 hr 05/09/22 13:25: WBC 28.0 H, RBC 2.57 L, Hgb 8.0 L, Hct 26.6 L, MCV 103.5 H, MCH 31.1, MCHC 30.1 L, RDW Std Deviation 99.7 H, RDW Coeff of Anjana 28.8 H, Plt Count 276, MPV 12.5 H, Immature Gran % (Auto) 3.200 H, Neut % (Auto) 82.3 H, Lymph % (Auto) 5.9 L, [place] % (Auto) 7.6, Eos % (Auto) 0.2, Baso % (Auto) 0.8, Absolute Neuts (auto) 23.0 H, Absolute Lymphs (auto) 1.66, Nucleated RBC % 15.4 H, Differential Comment SCANNED, Diff Path Review June foll 05/09/22 13:25: Sodium 138, Potassium 4.5, Chloride 102, Carbon Dioxide 24.0, Anion Gap 12, BUN 35 H, Creatinine 1.86 H, Estim Creat Clear Calc 17.96, Est GFR (MDRD) Af Amer 33 L, Est GFR (MDRD) Non-Af 27 L, BUN/Creatinine Ratio 18.8, Glucose 155 H, Calcium 9.2, Total Bilirubin 6.20 H, Direct Bilirubin 1.36 H, AST 96 H, ALT 41, Alkaline Phosphatase 90, Troponin I High Sens 31, Total Protein 7.0, Albumin 3.9, Globulin 3.1, Lipase 96 05/09/22 15:02: PT 27.5 H, INR 2.6 05/09/22 16:20: Urine Color [place], Urine Clarity Cloudy, Urine pH 5.0, Ur Specific [place] 1.020, Urine Protein 100 H, Urine Glucose (UA) Normal, Urine Ketones 5 H, Urine Occult Blood 250 H, Urine Nitrite Negative, Urine Bilirubin 1 H, Urine Urobilinogen 1 H, Ur Leukocyte Esterase 25 H, Urine RBC 5-10 SEEN, Urine WBC 0 SEEN, Ur Squamous Epith Cells 0 SEEN, Amorphous Sediment 2+, Urine Bacteria 0 SEEN, Urine Mucus 0 SEEN 05/09/22 16:25: Troponin I High Sens 68 H EKG Initial EKG: EKG Rhythm Intrepretation: Ventricular Paced Radiology Impression Abdomen/Pelvis CT 05/09/22 14:17 IMPRESSION: Small bilateral pleural effusions with increased markings at the lung bases likely worse on the left side. Small gallstones. Electronically Signed: Shiva Reynolds MD at 14:59 EDT , Chest X-Ray 05/09/22 14:40 IMPRESSION: Pleural parenchymal changes at the left lung base suggestive of atelectasis and/or early infiltrate. Follow-up recommended. Electronically Signed: Shiva Reynolds MD at 14:54 EDT , Gallbladder Ultrasound 05/09/22 15:07 IMPRESSION: GALLSTONES Note: Renal size measurements and size measurements of other organs etc may vary depending on modality and dry pan operator dependent variations in measurements. (i.e. Measuring a kidney on an US does not correlate with an exact same measurement on a CT.) Electronically Signed: Arley Willis MD at 16:41 EDT , Assessment & Plan Assessment/Plan (1) Hyperbilirubinemia: PLAN: Unclear etiology at this time. Concern for transfusion reaction with hemolysis versus transient bile duct obstruction possibly due to stone. We will continue to monitor for now (2) Leukocytosis: PLAN: Cannot rule out demargination due to stress due to the patient's underlying duress versus infectious etiology at this time Check cultures Continue with Pipracil/tazobactam (3) Abdominal pain: PLAN: Unclear etiology nothing clearly identified at this time. Patient does have cholelithiasis but no evidence of any bile duct stones present. We will check a HIDA scan (4) Elevated troponin I level: PLAN: Troponins went up slightly. Patient does have pacemaker. Suspect type II strain from demand from what ever is causing her underlying issues. Check an echocardiogram PLAN: Plan Chronic conditions Atrial fibrillation: Status post permanent pacemaker and history of ablation. Continue with metoprolol succinate and anticoagulation with warfarin Myelodysplastic syndrome: Patient was getting periodic transfusions. Currently hemoglobin is 8, therefore, no additional transfusions at this time. Hypothyroidism: Continue with levothyroxine VTE prophylaxis: Not indicated as patient is already on warfarin CODE STATUS: Addressed with the patient. Patient wishes to be full code. Patient's daughter and granddaughter present at bedside. All questions were answered. Charges/Coding Visit Charges Inpatient E&M: 14436 Init Hosp L3
--- NOTE | 2022-05-09 18:05 | ECHOD_ITS ---
Reason For Study: ABNORMAL EKG Procedure This was a 2D Doppler, Color Flow transthoracic echocardiogram. Exam performed in department. Left Ventricle Normal LV size. Left ventricular systolic function is normal. The estimated ejection fraction is 65 %. No regional wall motion abnormalities noted. Right Ventricle Normal RV size. ICD or pacer leads identified within the right ventricle. Normal systolic function. Atria The left atrium is moderately enlarged. Normal right atrium. Mitral Valve There is moderate mitral annular calcification. Mild-Moderate (1-2+) eccentric mitral valve insufficiency. Tricuspid Valve Normal tricuspid valve. Mild to moderate (1-2+) tricuspid valve insufficiency. Pulmonary artery systolic pressure is 54 mmHg. Aortic Valve Trisinus/trileaflet aortic valve. Moderate focal aortic valve calcification. Peak aortic valve gradient 21 mmHg. Mean aortic valve gradient 13 mmHg. Mild aortic stenosis. Pulmonic Valve Normal pulmonic valve. Great Vessels Calcified aortic root. The pulmonary artery is normal size. Normal inferior vena cava. Pericardium/Pleural No pericardial effusion. MMode/2D Measurements & Calculations LVIDd: 3.8 cm IVSd: 1.1 cm LVOT diam: 2.0 cm LVIDs: 2.6 cm LVPWd: 1.2 cm LVOT area: 3.1 cm2 RVDd: 3.2 cm FS: 30.1 % Ao root diam: 3.0 cm LAV(MOD-bp): 97.3 ml LVAd ap4: 17.1 cm2 LAV(MOD-bp) Indexed: 57.0 ml/m2 LVLd ap4: 6.1 cm LAV(MOD-sp2): 94.1 ml EDV(MOD-sp4): 40.9 ml LAV(MOD-sp4): 99.1 ml EDV(sp4-el): 40.6 ml LVAs ap4: 8.8 cm2 LVLs ap4: 5.2 cm ESV(MOD-sp4): 13.2 ml ESV(sp4-el): 12.7 ml EF(MOD-sp4): 67.7 % EF(sp4-el): 68.7 % SV(MOD-sp4): 27.7 ml SV(sp4-el): 27.9 ml LA A4 area: 29.5 cm2 LA dimension(2D): 5.0 cm RA A4 area: 20.8 cm2 Time Measurements MV dec time: 0.18 sec Doppler Measurements & Calculations MV E max felice: 151.3 cm/sec Lat Peak E' Felice: 10.8 cm/sec Med Peak E' Felice: 6.2 cm/sec MV A max felice: 54.9 cm/sec E/E' lat: 14.0 E/E' med: 24.3 MV E/A: 2.8 Ao V2 max: 228.6 cm/sec LV V1 max: 93.9 cm/sec SV(LVOT): 66.0 ml Ao max P.9 mmHg LV V1 max P.5 mmHg Ao V2 mean: 170.8 cm/sec LV V1 mean P.9 mmHg Ao mean P.9 mmHg LV V1 mean: 65.6 cm/sec Ao V2 VTI: 48.8 cm LV V1 VTI: 21.6 cm AV (velocity ratio): 0.44 ALE(I,D): 1.4 cm2 ALE(V,D): 1.3 cm2 PA V2 max: 110.8 cm/sec PI end-d felice: 68.7 cm/sec TR max felice: 347.5 cm/sec TR max P.3 mmHg ECHO/Echo Complete Interpretation Summary Normal LV size. Left ventricular systolic function is normal. The estimated ejection fraction is 65 %. Moderate focal aortic valve calcification. Mean aortic valve gradient 13 mmHg. Mild aortic stenosis. There is moderate mitral annular calcification. Mild-Moderate (1-2+) eccentric mitral valve insufficiency. Ordering Physician: Maynor Kamara Referring Physician: ISA ALVARADO Performed By: Savita Ferguson RDCS
[2022-05-09 18:40] LABS: LDH 791 U/L (84-246)
[2022-05-09] MEDS: 0.9% Saline Lock 10 ML Syringe IV ×2 (18:50→21:14)
[2022-05-09] MEDS: Ondansetron 4 MG/2 ML Vial IV (18:50)
[2022-05-09] MEDS: Albuterol 2.5 MG/3 ML VIAL.NEB. INHALATION (20:38)
[2022-05-09] MEDS: Metoprolol(XL)Succ 25 MG Tablet PO (21:14)
[2022-05-09] MEDS: Gabapentin 100 MG Capsule PO (21:14)
[2022-05-10] VITALS (12 sets, daily range): BP systolic 123–146; BP diastolic 43–101; PULSE 71–85; RESP 15–20; TEMP 36.7–37.5; O2SAT 92–99
[2022-05-10] MEDS: Levothyroxine 50 MCG Tablet PO (05:10)
[2022-05-10 05:53] LABS: Absolute Lymphocyte Count 0.82 X10^3/uL (0.83-4.51); Absolute Neutrophil Count 10.2 X10^3/uL (2.0-7.7); Basophil# 0.09 X10^3/uL; Basophil% 0.7 % (0-1); Eosinophil# 0.33 X10^3/uL; Eosinophils% 2.7 % (0-5); Hematocrit 24.6 % (37-47); Hemoglobin 7.1 g/dL (12.0-15.0); Lymphocyte # 0.82 X10^3/ul (0.83-4.51); Lymphocyte % 6.6 % (19-41); Mean Corp Hgb Conc 28.9 g/dL (32-36); Mean Corpuscular Hgb 29.6 pg (27.0-32.0); Mean Corpuscular Volume 102.5 fL (81-99); Mean Platelet Vol. 12.3 fl (6.2-12.0); Monocyte# 0.87 X10^3/uL; NRBC Flagged by Analyzer 3.4 % (0-5); POSITIVE MORPHOLOGY YES; Platelet Count 221 K/mm3 (150-450); RBC Distribution Width CV 28.8 % (11.6-14.6); RBC Distribution Width SD 96.1 fl (35.1-43.9); White Blood Count 12.4 K/mm3 (4.4-11.0)
[2022-05-10 06:01] LABS: Differential Indicated SCAN CRITERIA MET
[2022-05-10 06:26] LABS: International Normalized Ratio 2.3; Prothrombin Time (Protime)PT. 25.1 SECONDS (11.7-14.9)
[2022-05-10 06:38] LABS: ALB/GLOB Ratio 1.3 RATIO (0.9-2.4); AST(SGOT) 75 U/L (15-37); Alanine Aminotransfer ALT/SGPT 42 U/L (13-56); Albumin, Serum 3.4 g/dL (3.2-5.0); Alkaline Phosphatase 59 U/L (45-117); Anion Gap 6 (5-15); BUN 46 mg/dL (7-18); BUN/Creat Ratio 23.5 RATIO (10-20); Calcium,Total 8.4 mg/dL (8.5-10.1); Chloride 104 mmol/L (98-107); Creatinine, Serum 1.96 mg/dL (0.55-1.02); EST Glomerular Filtration Rate 26 mL/min (>60); Est Glom Filt Rate - Afr Amer 31 mL/min (>60); Globulin 2.7 g/dL (2.2-4.2); Glucose 102 mg/dL (74-106); Potassium 4.6 mmol/L (3.5-5.1); Protein, Total 6.1 g/dL (6.4-8.2); Sodium Level 138 mmol/L (136-145)
[2022-05-10 06:43] LABS: Anisocytosis 2+; Differential Comment SCANNED; Hypochromasia 2+; Macrocytosis 2+; Microcytosis 1+
[2022-05-10 06:44] LABS: Platelet Estimate ADEQUATE (ADEQ); Platelet Morphology LARGE; Polychromasia RARE
[2022-05-10] MEDS: Albuterol 2.5 MG/3 ML VIAL.NEB. INHALATION ×2 (07:15→13:18)
--- NOTE | 2022-05-10 07:55 | PCM.PN.HOSP ---
Reason for Visit Reason for Visit: Diagnoses Elevated white blood cell count, unspecified (05/09/22) Other disorders of bilirubin metabolism (05/09/22) Unspecified abdominal pain (05/09/22) Other specified abnormalities of plasma proteins (05/09/22) Subjective Subjective Had some abdominal pain last night, but feels well today. Objective Data Objective Data Vital Signs: Vital Signs Temp Pulse Resp BP Pulse Ox O2 Del Method O2 Flow Rate 37.5 C H 74 18 146/75 H 97 Nasal Cannula 3 05/10/22 03:12 05/10/22 03:12 05/10/22 03:12 05/10/22 03:12 05/10/22 03:16 05/10/22 03:17 05/10/22 03:17 Oxygen Flow Rate (L/min) 3 Oxygen Delivery Method Nasal Cannula Weight: 67.9 kg Body Mass Index (BMI) 29.2 Intake & Output: Intake and Output for Last 24 Hours 05/08/22 05/09/22 05/10/22 23:59 23:59 23:59 Intake Total 50 / 50 50 / 50 Output Total 200 / 200 Balance 50 / 50 -150 / -150 Lab / Micro Data Result Diagrams: 05/10/22 05:09 05/10/22 05:09 Labs: Laboratory Results - last 24 hr 05/09/22 13:25: WBC 28.0 H, RBC 2.57 L, Hgb 8.0 L, Hct 26.6 L, MCV 103.5 H, MCH 31.1, MCHC 30.1 L, RDW Std Deviation 99.7 H, RDW Coeff of Anjana 28.8 H, Plt Count 276, MPV 12.5 H, Immature Gran % (Auto) 3.200 H, Neut % (Auto) 82.3 H, Lymph % (Auto) 5.9 L, [place] % (Auto) 7.6, Eos % (Auto) 0.2, Baso % (Auto) 0.8, Absolute Neuts (auto) 23.0 H, Absolute Lymphs (auto) 1.66, Nucleated RBC % 15.4 H, Differential Comment SCANNED, Diff Path Review June05/09/22 13:25: Sodium 138, Potassium 4.5, Chloride 102, Carbon Dioxide 24.0, Anion Gap 12, BUN 35 H, Creatinine 1.86 H, Estim Creat Clear Calc 17.96, Est GFR (MDRD) Af Amer 33 L, Est GFR (MDRD) Non-Af 27 L, BUN/Creatinine Ratio 18.8, Glucose 155 H, Calcium 9.2, Total Bilirubin 6.20 H, Direct Bilirubin 1.36 H, AST 96 H, ALT 41, Alkaline Phosphatase 90, Troponin I High Sens 31, Total Protein 7.0, Albumin 3.9, Globulin 3.1, Lipase 96 05/09/22 15:02: PT 27.5 H, INR 2.6 05/09/22 16:20: Urine Color [place], Urine Clarity Cloudy, Urine pH 5.0, Ur Specific [place] 1.020, Urine Protein 100 H, Urine Glucose (UA) Normal, Urine Ketones 5 H, Urine Occult Blood 250 H, Urine Nitrite Negative, Urine Bilirubin 1 H, Urine Urobilinogen 1 H, Ur Leukocyte Esterase 25 H, Urine RBC 5-10 SEEN, Urine WBC 0 SEEN, Ur Squamous Epith Cells 0 SEEN, Amorphous Sediment 2+, Urine Bacteria 0 SEEN, Urine Mucus 0 SEEN 05/09/22 16:25: Troponin I High Sens 68 H 05/09/22 16:25: Lactate Dehydrogenase 791 H 05/10/22 05:09: WBC 12.4 H, RBC 2.40 L, Hgb 7.1 L, Hct 24.6 L, MCV 102.5 H, MCH 29.6, MCHC 28.9 L, RDW Std Deviation 96.1 H, RDW Coeff of Anjana 28.8 H, Plt Count 221, MPV 12.3 H, Immature Gran % (Auto) 1.000 H, Neut % (Auto) 82.0 H, Lymph % (Auto) 6.6 L, [place] % (Auto) 7.0, Eos % (Auto) 2.7, Baso % (Auto) 0.7, Absolute Neuts (auto) 10.2 H, Absolute Lymphs (auto) 0.82 L, Nucleated RBC % 3.4, Differential Comment SCANNED, Platelet Estimate ADEQUATE, Plt Morphology Comment LARGE, Polychromasia RARE, Hypochromasia 2+, Anisocytosis 2+, Microcytosis 1+, Macrocytosis 2+ 05/10/22 05:09: PT 25.1 H, INR 2.3 05/10/22 05:09: Sodium 138, Potassium 4.6, Chloride 104, Carbon Dioxide 28.0, Anion Gap 6, BUN 46 H, Creatinine 1.96 H, Estim Creat Clear Calc 14.80, Est GFR (MDRD) Af Amer 31 L, Est GFR (MDRD) Non-Af 26 L, BUN/Creatinine Ratio 23.5 H, Glucose 102, Calcium 8.4 L, Total Bilirubin 1.80 H, AST 75 H, ALT 42, Alkaline Phosphatase 59, Total Protein 6.1 L, Albumin 3.4, Globulin 2.7, Albumin/Globulin Ratio 1.3 Micro: Microbiology 05/10/22 03:20 Urine, Clean Catch Streptococcus pneumoniae Antigen (M - Final 05/10/22 03:20 Urine, Clean Catch Legionella Antigen - Final Radiography Diagnostic Testing: Radiology Impression Abdomen/Pelvis CT 05/09/22 14:17 IMPRESSION: Small bilateral pleural effusions with increased markings at the lung bases likely worse on the left side. Small gallstones. Electronically Signed: Shiva Reynolds MD at 14:59 EDT , Chest X-Ray 05/09/22 14:40 IMPRESSION: Pleural parenchymal changes at the left lung base suggestive of atelectasis and/or early infiltrate. Follow-up recommended. Electronically Signed: Shiva Reynolds MD at 14:54 EDT , Gallbladder Ultrasound 05/09/22 15:07 IMPRESSION: GALLSTONES Note: Renal size measurements and size measurements of other organs etc may vary depending on modality and centrifugal station operator dependent variations in measurements. (i.e. Measuring a kidney on an US does not correlate with an exact same measurement on a CT.) Electronically Signed: Arley Willis MD at 16:41 EDT Reading Location ID and State: [facility] / [place] , Service support , Physical Exam Const alert and no apparent distress HEENT head/scalp atraumatic, moist oral mucous membranes and oropharynx normal Resp normal respiratory effort, no retractions, no use of accessory muscles and clear to auscultation bilaterally Cardio regular rate, regular rhythm, S1 normal heart sound and S2 normal heart sound GI normal to inspection, nondistended, normoactive bowel sounds, soft to palpation, non-tender and non-distended Extremity normal to inspection and full ROM Assessment & Plan Assessment/Plan (1) Transfusion reaction: QUALIFIERS: Encounter type: initial encounter Qualified Code(s): T80.92XA - Unspecified transfusion reaction, initial encounter PLAN: blood bank: patient had a complement-mediated transfusion reaction. The tech spoke with Dr. Laura of pathology. Recommendation is for premedication with acetaminophen and diphenhydramine. I spoke with Dr. Henning who was nor readily familiar with this. Will monitor for now. No transfusion, but may need to transfuse if Hg continues to drop. If patient does require transfusion, while here, would premedicate and monitor. (2) Hyperbilirubinemia: PLAN: Improved Unclear etiology at this time. Concern for transfusion reaction with hemolysis versus transient bile duct obstruction possibly due to stone. HIDA scan positive, but given potential transfusion reaction, it seems the choledocholithiasis (3) Leukocytosis: QUALIFIERS: Leukocytosis type: unspecified Qualified Code(s): D72.829 - Elevated white blood cell count, unspecified PLAN: Improved Cannot rule out demargination due to stress due to the patient's underlying duress versus infectious etiology at this time Check cultures Continue with Pipracil/tazobactam (4) Abdominal pain: QUALIFIERS: Abdominal location: generalized Qualified Code(s): R10.84 - Generalized abdominal pain PLAN: Unclear etiology nothing clearly identified at this time. Patient does have cholelithiasis but no evidence of any bile duct stones present. We will check a HIDA scan (5) Elevated troponin I level: PLAN: Troponins went up slightly. Patient does have pacemaker. Suspect type II strain from demand from what ever is causing her underlying issues. Check an echocardiogram (6) Anemia: PLAN: Hg down to 7.1 Monitor for now LDH 791 Haptoglobin pending PLAN: Plan Chronic conditions Atrial fibrillation: Status post permanent pacemaker and history of ablation. Continue with metoprolol succinate and anticoagulation with warfarin Myelodysplastic syndrome: Patient was getting periodic transfusions. Currently hemoglobin is 8, therefore, no additional transfusions at this time. Hypothyroidism: Continue with levothyroxine VTE prophylaxis: Not indicated as patient is already on warfarin CODE STATUS: Addressed with the patient. Patient wishes to be full code. Patient's daughter at bedside. Charges/Coding Visit Charges Inpatient E&M: 42377 Subs Hosp L3
[2022-05-10] MEDS: Fluticasone 0.05% 1 SPRAY NASAL.SRY NASAL (11:15)
[2022-05-10] MEDS: Calcitriol 0.25 MCG Capsule PO (11:16)
[2022-05-10] MEDS: Gabapentin 100 MG Capsule PO (11:16)
[2022-05-10] MEDS: guaiFENesin 1,200 MG Tablet 1200 MG PO (11:16)
[2022-05-10] MEDS: Folic Acid 1 MG Tablet 0.5 MG PO (11:16)
[2022-05-10] MEDS: Montelukast 10 MG Tablet PO (11:16)
[2022-05-10] MEDS: Ascorbic Acid 500 MG Tablet PO (11:17)
[2022-05-10] MEDS: Metoprolol(XL)Succ 25 MG Tablet PO ×2 (11:18→21:09)
[2022-05-10] MEDS: Pantoprazole Sodium 40 MG Tablet PO (11:18)
[2022-05-10] MEDS: Allopurinol 100 MG Tablet PO (11:18)
[2022-05-10] MEDS: Acetaminophen 500 MG Tablet PO (11:19)
[2022-05-10 13:33] LABS: Pathologist Review Reviewed
--- NOTE | 2022-05-10 15:58 | CHAPLAIN ---
Type of Pastoral Visit ___ Initial Visit ___ Follow-up Visit ___ On-call Visit ___ General Patient Visit ___ Spiritual Assessment ___ Family Conference ___ Bereavement ___ Rapid Response ___ Code Blue ___ Other (describe below) Pastoral Care Referral From ___ Patient ___ Family ___ Nurse ___ Physician ___ Molded Grid And Parts Inspector ___ Bench Scientist ___ Other (describe below) Sacrament/Intervention ___ Active listening ___ Anointing ___ Mosque ___ Bereavement ___ Communion ___ Mi exploration ___ ___ Life review ___ Prayer ___ Reconciliation ___ Sacrament of Sick ___ Supportive presence ___ Wedding ___ Other (describe below) Pastoral Comments first attempt the patient is receiving medical care; second attempt to visit the patient is sound asleep and does not awaken to her name; left a calling card
--- NOTE | 2022-05-10 17:08 | CON.PCM.ON_ITS ---
Assessment & Plan Assessment/Plan (1) Transfusion reaction: Status: Acute Code(s): T80.92XA - Unspecified transfusion reaction, initial encounter Qualifiers: Encounter type: initial encounter Qualified Code(s): T80.92XA - Unspecified transfusion reaction, initial encounter (2) Anemia: Status: Acute Code(s): D64.9 - Anemia, unspecified (3) MDS (myelodysplastic syndrome), low grade: Status: Acute Code(s): D46.Z - Other myelodysplastic syndromes Plan: Impression: -Hemolytic transfusion reaction. Discussed earlier with blood bank. Evidently secondary to complement fixing antibody. However no allo or auto antibodies were identified per the blood bank. Patient did not receive incompatible unit. -Bilirubin lower this am. -LDH not repeated yet. Plan: -Check SPEP wiht immunofixation. -Check for cold agglutinin. -Will discuss with pathology in am. -Recheck bilirubin and LDH in am. If trending lower, then premedicate with Benadryl 50 mg orally, Tylenol 1000 mg and IV hydrocortisone 100 mg IV about one hour prior to 1 unit RBC transfusion. -Discussed with Dr. Mason. HPI Consult Data Date of Service:: 05/10/22 PCP / Referring Provider: Dr. Isa Alvarado DO Attending: Dr. Maynor Kamara DO Chief Complaint Chief Complaint: Hemolytic transfusion reaction History of Present Illness History of Present Illness: Diagnoses:? 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 HPI:?The patient is an 85-year-old female who moved to [place] in 2020 and established care with Dr. Rowley. She had a history of low-grade myelodysplastic syndrome/refractory anemia. ?Bone marrow biopsy aspiration in 2015 showed erythroid hyperplasia with hypercellular marrow and no evidence of hemolysis. ?46XX on cytogenetics. She was started GABRIEL with Procrit initially without significant response. ?She was subsequently changed to Aranesp injections. ?She still needed occasional blood transfusion~every other month. ?Because of a fractured hip, she had required increased blood transfusion and was transferred to [place] to be live closer to her family at [facility].??She has history of atrial fibrillation and is on Coumatin she was also taking aspirin 81 mg daily.?Also has h/o CKD. ? Previous?treatment: Aranesp?300mcg sq?weekly & blood transfusions ? Current?treatment:? Luspatercept?1.75 mg/kg every 21 days. EXJADE 1000 mg?daily. She has received multiple blood cell transfusions in the past. Yesterday she was here for red blood cell transfusion shortly after transfusion had started she developed some numbness of the lips associated with neck and shoulder pain. She was given Benadryl with the intention of also giving her Tylenol but she became very sedated with the Benadryl. Evidently she later started vomiting and developed abdominal pain. A rapid response was called and she was transported to the ED. She was noted to have an increased bilirubin and increased LDH. Her bilirubin had been normal on previous lab work in the last several years. LDH has ranged 300-520 with most recent value in the office on 05/01/2022 of 308 U/L. She has low-grade fever. Platelet count was normal. Had work-up for possible gallbladder disease including CT of abdomen pelvis and ultrasound. Results noted. Hgb this am 7.1 g/dL. Blood bank has determine the issued unit was correct. There was evidence of complement fixing antibody, C3. No documentation of same. Pathologist recommended could received transfusion with steroid and Benadryl prep. She currently offers no complaints. She says she feels back to herself and like she normally does. No shortness of breath at rest while in the bed. She ate today and had no nausea. Does not appear jaundiced and has no scleral icterus. Advanced Directives Power of Certified Pathology Assistant: No Living Will: No [facility] Medical History (Updated 05/10/22 @ 17:[address] Afshin Henning, DO) Afib Anemia CHF (congestive heart failure) CKD (chronic kidney disease) COPD (chronic obstructive pulmonary disease) Diabetes Hypothyroid Myelodysplastic syndrome Pacemaker Home Medications calcium carbonate 400 mg calcium (1,000 mg) chewable tablet (Tums Ultra) 400 mg PO DAILY 12/07/20 [History Last Taken Unknown] ergocalciferol (vitamin D2) 1,250 mcg (50,000 unit) capsule 1,250 mcg PO UD 12/07/20 [History Last Taken 04/30/22] folic acid 400 mcg tablet 0.4 mg PO DAILY 12/07/20 [History Last Taken 05/08/22] montelukast 10 mg tablet (Singulair) 10 mg PO DAILY 12/07/20 [History Last Taken 05/08/22] warfarin 5 mg tablet 5 mg PO DAILY 12/07/20 [History Last Taken 05/08/22] allopurinol 100 mg tablet 100 mg PO DAILY 06/28/21 [History Last Taken 05/08/22] calcitriol 0.25 mcg capsule 0.25 mcg PO DAILY 06/28/21 [History Last Taken 05/08/22] furosemide 40 mg tablet 40 mg PO MOTUWETHFR 06/28/21 [History Last Taken 05/08/22] loperamide 2 mg tablet 2 mg PO TIDCM CHRONIC DIARRHEA 06/28/21 [History Last Taken 05/09/22] metoprolol succinate 25 mg tablet,extended release 24 hr 25 mg PO DAILY HEART 06/28/21 [History Last Taken 05/08/22] deferasirox 500 mg dispersible tablet 1,000 mg PO DAILY 03/28/22 [History Last Taken 05/08/22] acetaminophen 500 mg tablet 1,000 mg PO BID PAIN 05/09/22 [History Last Taken 05/09/22] albuterol sulfate 90 mcg/actuation breath activated powder inhaler,sensor 2 inh inhalation Q6H COPD 05/09/22 [History Last Taken 05/08/22] ascorbic acid (vitamin C) 500 mg tablet 500 mg PO DAILY SUPPLEMENT 05/09/22 [History Last Taken 05/08/22] gabapentin 100 mg capsule 200 mg PO BID FOOT PAIN 05/09/22 [History Last Taken 05/09/22] guaifenesin 100 mg/5 mL oral liquid 400 mg PO Q4H PRN Congestion 05/09/22 [History Last Taken 05/09/22] levothyroxine 50 mcg tablet 50 mcg PO DAILY THYROID 05/09/22 [History Last Taken 05/08/22] melatonin 5 mg tablet 5 mg PO QHS SLEEP 05/09/22 [History Last Taken 05/08/22] pantoprazole 40 mg tablet,delayed release 40 mg PO DAILY GERD 05/09/22 [History Last Taken 05/09/22] pyridoxine (vitamin B6) 100 mg tablet 100 mg PO DAILY SUPPLEMENT 05/09/22 [History Last Taken 05/09/22] sodium chloride-aloe vera nasal spray ([place] Saline Gel nasal spray) 1 spray intranasal DAILY PRN DRY NOSE 05/09/22 [History Last Taken 05/08/22] Allergy/AdvReac Type Severity Reaction Status Date / Time digoxin Allergy PT UNSURE Verified 05/09/22 13:15 OF REACTION Family History Other Heart disease Social History (Updated 05/09/22 @ 18:30 by Alana Gerard) housing: assisted living facility Smoking Status: Never smoker alcohol intake: never substance use type: does not use Physical Exam Const alert Eyes no scleral icterus Neck no lymphadenopathy Resp normal respiratory effort Cardio regular rhythm GI GI Narrative: The abdomen is soft and nontender throughout. Extremity no pedal edema Skin no jaundice Vital Signs Temperature 98.5 F 05/10/22 12:16 Temperature Source Oral 05/10/22 12:16 Pulse Rate 79 05/10/22 13:18 Respiratory Rate 16 05/10/22 13:18 Respiratory Effort Non-Labored 05/10/22 11:20 Respiratory Depth Normal 05/10/22 11:20 Respiratory Pattern Normal 05/10/22 13:18 Blood Pressure 130/101 H 05/10/22 12:16 Blood Pressure Mean 110 05/10/22 12:16 Blood Pressure Source Monitor 05/10/22 11:08 Blood Pressure Position Semi-Fowlers 05/10/22 11:08 Blood Pressure Location Left Arm 05/10/22 11:08 Pulse Ox 93 05/10/22 12:16 Oxygen Delivery Method Nasal Cannula 05/10/22 12:16 Oxygen Flow Rate (L/min) 3 05/10/22 12:16 Laboratory Results - last 24 hr 05/09/22 13:25: Diff Path Review Reviewed 05/09/22 16:25: Lactate Dehydrogenase 791 H 05/10/22 05:09: WBC 12.4 H, RBC 2.40 L, Hgb 7.1 L, Hct 24.6 L, MCV 102.5 H, MCH 29.6, MCHC 28.9 L, RDW Std Deviation 96.1 H, RDW Coeff of Anjana 28.8 H, Plt Count 221, MPV 12.3 H, Immature Gran % (Auto) 1.000 H, Neut % (Auto) 82.0 H, Lymph % (Auto) 6.6 L, [place] % (Auto) 7.0, Eos % (Auto) 2.7, Baso % (Auto) 0.7, Absolute Neuts (auto) 10.2 H, Absolute Lymphs (auto) 0.82 L, Nucleated RBC % 3.4, Differential Comment SCANNED, Platelet Estimate ADEQUATE, Plt Morphology Comment LARGE, Polychromasia RARE, Hypochromasia 2+, Anisocytosis 2+, Microcytosis 1+, Macrocytosis 2+ 05/10/22 05:09: PT 25.1 H, INR 2.3 05/10/22 05:09: Sodium 138, Potassium 4.6, Chloride 104, Carbon Dioxide 28.0, Anion Gap 6, BUN 46 H, Creatinine 1.96 H, Estim Creat Clear Calc 14.80, Est GFR (MDRD) Af Amer 31 L, Est GFR (MDRD) Non-Af 26 L, BUN/Creatinine Ratio 23.5 H, Glucose 102, Calcium 8.4 L, Total Bilirubin 1.80 H, AST 75 H, ALT 42, Alkaline Phosphatase 59, Total Protein 6.1 L, Albumin 3.4, Globulin 2.7, Albumin/Globulin Ratio 1.3 Microbiology 05/10/22 03:20 Urine, Clean Catch Streptococcus pneumoniae Antigen (M - Final 05/10/22 03:20 Urine, Clean Catch Legionella Antigen - Final Diagnostic Data Abdomen/Pelvis CT 05/09/22 14:17 IMPRESSION: Small bilateral pleural effusions with increased markings at the lung bases likely worse on the left side. Small gallstones. Electronically Signed: Shiva Reynolds MD at 14:59 EDT , Chest X-Ray 05/09/22 14:40 IMPRESSION: Pleural parenchymal changes at the left lung base suggestive of atelectasis and/or early infiltrate. Follow-up recommended. Electronically Signed: Shiva Reynolds MD at 14:54 EDT , Gallbladder Ultrasound 05/09/22 15:07 IMPRESSION: GALLSTONES Note: Renal size measurements and size measurements of other organs etc may vary depending on modality and electric system operator dependent variations in measurements. (i.e. Measuring a kidney on an US does not correlate with an exact same measurement on a CT.) Electronically Signed: Arley Willis MD at 16:41 EDT , Hepatobiliary Scan Nuclear Medicine 05/09/22 17:53 IMPRESSION: 1. ABNORMAL 99m Tc Mebrofenin hepatobiliary imaging examination with Cholecystokinin. A. A gallbladder ejection fraction calculated to be less than 35% following the administration of Cholecystokinin is consistent with the presence of functional hepatobiliary disease (gallbladder and/or sphincter of Oddi dyskinesia) and/or organic hepatobiliary disease (chronic acalculous cholecystitis and/or cystic duct syndrome) in patients with intermediate to high pretest probabilities of hepatobiliary illness. (Alan Estevez et al, Journal of Nuclear Medicine 32:1695, 1991). Electronically Signed: Yared Stevens at 10:57 EDT , Echocardiogram 05/09/22 18:05 Interpretation Summary Normal LV size. Left ventricular systolic function is normal. The estimated ejection fraction is 65 %. Moderate focal aortic valve calcification. Mean aortic valve gradient 13 mmHg. Mild aortic stenosis. There is moderate mitral annular calcification. Mild-Moderate (1-2+) eccentric mitral valve insufficiency. Ordering Physician: Maynor Kamara Referring Physician: ISA ALVARADO Performed By: Savita Ferguson RDCS
[2022-05-10] MEDS: Gabapentin 100 MG Capsule 200 MG PO (21:09)
[2022-05-10] MEDS: Acetaminophen 500 MG Tablet 1000 MG PO (21:10)
[2022-05-10] MEDS: 0.9% Saline Lock 10 ML Syringe IV (21:15)
[2022-05-11] VITALS (11 sets, daily range): BP systolic 118–142; BP diastolic 51–55; PULSE 72–78; RESP 16–20; TEMP 36.7–37; O2SAT 93–100
[2022-05-11] MEDS: Levothyroxine 50 MCG Tablet PO (05:14)
[2022-05-11] MEDS: Fluticasone 0.05% 1 SPRAY NASAL.SRY NASAL ×2 (05:14→23:42)
[2022-05-11 06:20] LABS: Absolute Lymphocyte Count 1.09 X10^3/uL (0.83-4.51); Absolute Neutrophil Count 9.8 X10^3/uL (2.0-7.7); Basophil# 0.08 X10^3/uL; Basophil% 0.6 % (0-1); Eosinophil# 0.46 X10^3/uL; Eosinophils% 3.7 % (0-5); Hematocrit 24.7 % (37-47); Lymphocyte # 1.09 X10^3/ul (0.83-4.51); Lymphocyte % 8.8 % (19-41); Mean Corp Hgb Conc 28.3 g/dL (32-36); Mean Corpuscular Hgb 29.3 pg (27.0-32.0); Mean Corpuscular Volume 103.3 fL (81-99); Monocyte# 0.82 X10^3/uL; Monocyte% 6.6 % (0-10); Neutrophil # 9.78 X10^3/uL (2.7-7.7); Neutrophil % 79.2 % (47-70); POSITIVE COUNT YES; POSITIVE MORPHOLOGY YES; Platelet Count 167 K/mm3 (150-450); RBC Distribution Width CV 29.4 % (11.6-14.6); Red Blood Count 2.39 M/mm3 (4.2-5.4); White Blood Count 12.4 K/mm3 (4.4-11.0)
[2022-05-11 06:28] LABS: Differential Indicated SCAN CRITERIA MET; RBC Distribution Width SD 102.7 fl (35.1-43.9)
[2022-05-11 06:29] LABS: Prothrombin Time (Protime)PT. 22.5 SECONDS (11.7-14.9)
[2022-05-11 06:39] LABS: Anisocytosis 2+; Differential Comment SCANNED; Macrocytosis 2+
[2022-05-11 06:40] LABS: Hypochromasia 1+; Microcytosis 1+
[2022-05-11 07:01] LABS: ALB/GLOB Ratio 1.2 RATIO (0.9-2.4); AST(SGOT) 58 U/L (15-37); Alanine Aminotransfer ALT/SGPT 46 U/L (13-56); Albumin, Serum 3.2 g/dL (3.2-5.0); Alkaline Phosphatase 57 U/L (45-117); Anion Gap 6 (5-15); BUN 47 mg/dL (7-18); BUN/Creat Ratio 25.1 RATIO (10-20); Calcium,Total 8.9 mg/dL (8.5-10.1); Chloride 106 mmol/L (98-107); Creatinine, Serum 1.87 mg/dL (0.55-1.02); EST Glomerular Filtration Rate 27 mL/min (>60); Est Glom Filt Rate - Afr Amer 33 mL/min (>60); Estimated Creatinine Clearance 15.51 ml/min; Globulin 2.6 g/dL (2.2-4.2); Glucose 120 mg/dL (74-106); Potassium 4.1 mmol/L (3.5-5.1); Protein, Total 5.8 g/dL (6.4-8.2); Sodium Level 141 mmol/L (136-145)
[2022-05-11 07:06] LABS: LDH 464 U/L (84-246)
[2022-05-11] MEDS: Albuterol 2.5 MG/3 ML VIAL.NEB. INHALATION ×3 (07:09→19:10)
--- NOTE | 2022-05-11 08:44 | PN.HOSP_ITS ---
Reason for Visit Reason for Visit: Diagnoses Other myelodysplastic syndromes (05/09/22) Anemia, unspecified (05/09/22) Elevated white blood cell count, unspecified (05/09/22) Other disorders of bilirubin metabolism (05/09/22) Generalized abdominal pain (05/09/22) Unspecified abdominal pain (05/09/22) Other specified abnormalities of plasma proteins (05/09/22) Unspecified transfusion reaction, initial encounter (05/09/22) Subjective Subjective No events overnight. Breathing well. Objective Data Objective Data Vital Signs: Vital Signs Temp Pulse Resp BP Pulse Ox O2 Del Method O2 Flow Rate 37.0 C 78 20 H 126/52 H 96 Nasal Cannula 2 05/11/22 05:51 05/11/22 07:09 05/11/22 07:09 05/11/22 05:51 05/11/22 07:09 05/11/22 07:09 05/11/22 07:09 Oxygen Flow Rate (L/min) 2 Oxygen Delivery Method Nasal Cannula Weight: 67.9 kg Body Mass Index (BMI) 29.2 Intake & Output: Intake and Output for Last 24 Hours 05/09/22 05/10/22 05/11/22 23:59 23:59 23:59 Intake Total 50 / 50 460 / 460 50 / 50 Output Total 400 / 400 200 / 200 Balance 50 / 50 60 / 60 -150 / -150 Lab / Micro Data Result Diagrams: 05/11/22 05:50 05/11/22 05:50 Labs: Laboratory Results - last 24 hr 05/09/22 13:25: Diff Path Review Reviewed 05/11/22 05:50: PT 22.5 H, INR 2.0 05/11/22 05:50: WBC 12.4 H, RBC 2.39 L, Hgb 7.0 L, Hct 24.7 L, MCV 103.3 H, MCH 29.3, MCHC 28.3 L, RDW Std Deviation 102.7 H, RDW Coeff of Anjana 29.4 H, Plt Count 167, MPV TNP, Immature Gran % (Auto) 1.100 H, Neut % (Auto) 79.2 H, Lymph % (Auto) 8.8 L, [place] % (Auto) 6.6, Eos % (Auto) 3.7, Baso % (Auto) 0.6, Absolute Neuts (auto) 9.8 H, Absolute Lymphs (auto) 1.09, Nucleated RBC % 3.0, Differential Comment SCANNED, Hypochromasia 1+, Anisocytosis 2+, Microcytosis 1+, Macrocytosis 2+ 05/11/22 05:50: Sodium 141, Potassium 4.1, Chloride 106, Carbon Dioxide 29.0, Anion Gap 6, BUN 47 H, Creatinine 1.87 H, Estim Creat Clear Calc 15.51, Est GFR (MDRD) Af Amer 33 L, Est GFR (MDRD) Non-Af 27 L, BUN/Creatinine Ratio 25.1 H, Glucose 120 H, Calcium 8.9, Total Bilirubin 1.00, AST 58 H, ALT 46, Alkaline Phosphatase 57, Total Protein 5.8 L, Albumin 3.2, Globulin 2.6, Albumin/Globulin Ratio 1.2 05/11/22 05:50: Lactate Dehydrogenase 464 H Micro: Microbiology 05/10/22 03:20 Urine, Clean Catch Streptococcus pneumoniae Antigen (M - Final 05/10/22 03:20 Urine, Clean Catch Legionella Antigen - Final Radiography Diagnostic Testing: Radiology Impression Hepatobiliary Scan Nuclear Medicine 05/09/22 17:53 IMPRESSION: 1. ABNORMAL 99m Tc Mebrofenin hepatobiliary imaging examination with Cholecystokinin. A. A gallbladder ejection fraction calculated to be less than 35% following the administration of Cholecystokinin is consistent with the presence of functional hepatobiliary disease (gallbladder and/or sphincter of Oddi dyskinesia) and/or organic hepatobiliary disease (chronic acalculous cholecystitis and/or cystic duct syndrome) in patients with intermediate to high pretest probabilities of hepatobiliary illness. (Alan Hart al, Journal of Nuclear Medicine 32:1695, 1991). Electronically Signed: Yared Stevens, at 10:57 EDT , Echocardiogram 05/09/22 18:05 Interpretation Summary Normal LV size. Left ventricular systolic function is normal. The estimated ejection fraction is 65 %. Moderate focal aortic valve calcification. Mean aortic valve gradient 13 mmHg. Mild aortic stenosis. There is moderate mitral annular calcification. Mild-Moderate (1-2+) eccentric mitral valve insufficiency. Ordering Physician: Maynor Kamara Referring Physician: ISA ALVARADO Performed By: Savita Ferguson RDCS Physical Exam Const alert and no apparent distress Resp normal respiratory effort, no retractions, no use of accessory muscles and clear to auscultation bilaterally Cardio regular rate, regular rhythm, S1 normal heart sound and S2 normal heart sound GI normal to inspection, nondistended, normoactive bowel sounds, soft to palpation, non-tender and non-distended Extremity normal to inspection Assessment & Plan Assessment/Plan (1) Transfusion reaction: QUALIFIERS: Encounter type: initial encounter Qualified Code(s): T80.92XA - Unspecified transfusion reaction, initial encounter PLAN: DW blood bank: patient had a complement-mediated transfusion reaction. The tech spoke with Dr. Laura of pathology. Recommendation is for premedication with acetaminophen and diphenhydramine. Seen by Dr. Henning. 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 No allo or autoantibodies. Pt received compatible unit. LDH today 464 (down from 791) Checking SPEP, cold agglutinins DW Dr. Henning: PT researched this and found some anecdotal cases about this. What he is recommending in his to premedicate the patient with 40 mg of prednisone twice daily for 3 doses and then to also premedicate, before the transfusion, with diphenhydramine and acetaminophen. Then to administer the blood. If patient does fine with that then that may be her treatment moving for ascencio for further outpatient transfusions, however, if she has a reaction to that then he recommends transfer to a tertiary facility to be seen by more specialized station examiner. Patient was made aware of these recommendations. (2) Hyperbilirubinemia: PLAN: Resolved 2/2 above Unclear etiology at this time. Concern for transfusion reaction with hemolysis versus transient bile duct obstruction possibly due to stone. HIDA scan positive, but given potential transfusion reaction, it seems the choledocholithiasis (3) Leukocytosis: QUALIFIERS: Leukocytosis type: unspecified Qualified Code(s): D72.829 - Elevated white blood cell count, unspecified PLAN: Improved Cannot rule out demargination due to stress due to the patient's underlying duress versus infectious etiology at this time Check cultures Continue with Pipracil/tazobactam (4) Abdominal pain: QUALIFIERS: Abdominal location: generalized Qualified Code(s): R10.84 - Generalized abdominal pain PLAN: Unclear etiology nothing clearly identified at this time. Patient does have cholelithiasis but no evidence of any bile duct stones present. HIDA scan positive but given what were seen would be a transfusion reaction it seems less likely that patient passed a gallstone contributes to the hyperbilirubinemia. Explained the patient that with her cholelithiasis, that she could be at risk for cholecystitis or choledocholithiasis. No surgery or GI input is necessary at this time. (5) Elevated troponin I level: PLAN: Likely type II event from strain from the transfusion reaction. No additional work-up at this time. Troponins went up slightly. Patient does have pacemaker. Suspect type II strain from demand from what ever is causing her underlying issues. Echo shows an EF of 65%.. (6) Anemia: PLAN: Hg down to 7 Monitor for now Haptoglobin pending PLAN: Plan Chronic conditions * Atrial fibrillation: Status post permanent pacemaker and history of ablation. Continue with metoprolol succinate and anticoagulation with warfarin * Myelodysplastic syndrome: Patient was getting periodic transfusions. Currently hemoglobin is 8, therefore, no additional transfusions at this time. * Hypothyroidism: Continue with levothyroxine VTE prophylaxis: Not indicated as patient is already on warfarin CODE STATUS: Addressed with the patient. Patient wishes to be full code. Charges/Coding Visit Charges Inpatient E&M: 10680 Subs Hosp L3
[2022-05-11] MEDS: Calcium Carbonate 500 MG Tablet PO (09:13)
[2022-05-11] MEDS: Pyridoxine HCl 100 MG Tablet PO (09:13)
[2022-05-11] MEDS: Ascorbic Acid 500 MG Tablet PO (09:13)
[2022-05-11] MEDS: Folic Acid 1 MG Tablet 0.5 MG PO (09:13)
[2022-05-11] MEDS: Allopurinol 100 MG Tablet PO (09:14)
[2022-05-11 09:30] LABS: Haptoglobin < 10 mg/dL (41-333)
[2022-05-11] MEDS: guaiFENesin 1,200 MG Tablet 1200 MG PO (10:17)
[2022-05-11] MEDS: Furosemide 40 MG Tablet PO (10:17)
[2022-05-11] MEDS: Montelukast 10 MG Tablet PO (10:18)
[2022-05-11] MEDS: Calcitriol 0.25 MCG Capsule PO (10:18)
[2022-05-11] MEDS: Gabapentin 100 MG Capsule 200 MG PO ×2 (10:18→23:37)
[2022-05-11] MEDS: Pantoprazole Sodium 40 MG Tablet PO (10:18)
[2022-05-11] MEDS: Acetaminophen 500 MG Tablet 1000 MG PO ×2 (10:19→23:36)
[2022-05-11] MEDS: Metoprolol(XL)Succ 25 MG Tablet PO ×2 (10:20→23:37)
--- NOTE | 2022-05-11 10:55 | CASEMGMT ---
TIM VARGAS Face to Face with patient for initial transition planning/care coordination assessment. RN CM introduced self and role at [facility]. Patient lying in bed, alert and oriented. Patient willing to participate in assessment and is able to answer all questions appropriately. Care providers, pharmacy, and demographics verified. Patient wishes to discharge back to [facility]. Patient states he has no further needs or concerns at this time. RN CM called [facility] and confirmed that patient is from assisted living. SW updated CM to follow for discharge planning needs that may arise. PCP: [facility] Specialists: Corey, marine equipment design engineer; Papo, senior business architect; Milady, oncologist Preferred Pharmacy: [facility] retail Insurance: [employer] Prescription Benefit: yes Living Will/HPOA: daughter Dianne Gabriel LNOK: daughter Living Arrangements: Patient lives in a first floor apartment at [facility] Assisted living Transportation: daughter DME/HHC: Patient has shower chair, raised toilet, grab bars, walker, pulse ox, and home oxygen through [facility] at 2lpm with portability. No previous SNF. Steven could not recall [facility] agency Disposition Plan: Patient to discharge to [facility] when medically ready. Gilma AGEE, RN, CM
--- NOTE | 2022-05-11 10:59 | PN.ONC_ITS ---
Subjective Subjective She had no complaints this morning. Was combing her hair. No dyspnea at rest. No chest pain/pressure. No nausea. Physical Exam Const oriented x3 General Appearance: comfortable Eyes no scleral icterus Lymph Lymphatic: no lymphadenopathy noted Lymphatic Narrative: No cervical or supraclavicular adenopathy. Chest Chest: symmetrical chest wall rise Resp normal respiratory effort Cardio regular rhythm GI soft to palpation and non-tender Vital Signs Temperature 98.2 F 05/11/22 08:59 Temperature Source Oral 05/11/22 08:59 Pulse Rate 73 05/11/22 10:20 Pulse Strength Normal (2+) 05/11/22 08:59 Respiratory Rate 16 05/11/22 08:59 Respiratory Effort Non-Labored 05/11/22 08:59 Respiratory Depth Normal 05/11/22 08:59 Respiratory Pattern Normal 05/11/22 08:59 Blood Pressure 122/55 H 05/11/22 08:59 Blood Pressure Mean 77 05/11/22 08:59 Blood Pressure Source Monitor 05/11/22 08:59 Blood Pressure Position Semi-Fowlers 05/11/22 08:59 Blood Pressure Location Left Arm 05/11/22 08:59 Pulse Ox 93 05/11/22 08:59 Oxygen Delivery Method Nasal Cannula 05/11/22 08:59 Oxygen Flow Rate (L/min) 2 05/11/22 08:59 Laboratory Results - last 24 hr 05/09/22 13:25: Diff Path Review Reviewed 05/09/22 18:36: Haptoglobin < 10 L 05/11/22 05:50: PT 22.5 H, INR 2.0 05/11/22 05:50: WBC 12.4 H, RBC 2.39 L, Hgb 7.0 L, Hct 24.7 L, MCV 103.3 H, MCH 29.3, MCHC 28.3 L, RDW Std Deviation 102.7 H, RDW Coeff of Ajnana 29.4 H, Plt Count 167, MPV TNP, Immature Gran % (Auto) 1.100 H, Neut % (Auto) 79.2 H, Lymph % (Auto) 8.8 L, [place] % (Auto) 6.6, Eos % (Auto) 3.7, Baso % (Auto) 0.6, Absolute Neuts (auto) 9.8 H, Absolute Lymphs (auto) 1.09, Nucleated RBC % 3.0, Dif ferential Comment SCANNED, Hypochromasia 1+, Anisocytosis 2+, Microcytosis 1+, Macrocytosis 2+ 05/11/22 05:50: Sodium 141, Potassium 4.1, Chloride 106, Carbon Dioxide 29.0, Anion Gap 6, BUN 47 H, Creatinine 1.87 H, Estim Creat Clear Calc 15.51, Est GFR (MDRD) Af Amer 33 L, Est GFR (MDRD) Non-Af 27 L, BUN/Creatinine Ratio 25.1 H, Glucose 120 H, Calcium 8.9, Total Bilirubin 1.00, AST 58 H, ALT 46, Alkaline Phosphatase 57, Total Protein 5.8 L, Albumin 3.2, Globulin 2.6, Albumin/Globulin Ratio 1.2 05/11/22 05:50: Lactate Dehydrogenase 464 H Diagnostic Data Abdomen/Pelvis CT 05/09/22 14:17 IMPRESSION: Small bilateral pleural effusions with increased markings at the lung bases likely worse on the left side. Small gallstones. Electronically Signed: Shiva Reynolds MD at 14:59 EDT , Chest X-Ray 05/09/22 14:40 IMPRESSION: Pleural parenchymal changes at the left lung base suggestive of atelectasis and/or early infiltrate. Follow-up recommended. Electronically Signed: Shiva Reynolds MD at 14:54 EDT , Gallbladder Ultrasound 05/09/22 15:07 IMPRESSION: GALLSTONES Note: Renal size measurements and size measurements of other organs etc may vary depending on modality and mitering machine operator dependent variations in measurements. (i.e. Measuring a kidney on an US does not correlate with an exact same measurement on a CT.) Electronically Signed: Arley Willis MD at 16:41 EDT , Hepatobiliary Scan Nuclear Medicine 05/09/22 17:53 IMPRESSION: 1. ABNORMAL 99m Tc Mebrofenin hepatobiliary imaging examination with Cholecystokinin. A. A gallbladder ejection fraction calculated to be less than 35% following the administration of Cholecystokinin is consistent with the presence of functional hepatobiliary disease (gallbladder and/or sphincter of Oddi dyskinesia) and/or organic hepatobiliary disease (chronic acalculous cholecystitis and/or cystic duct syndrome) in patients with intermediate to high pretest probabilities of hepatobiliary illness. (Alan Estevez et al, Journal of Nuclear Medicine 32:1695, 1990). Electronically Signed: Yared Stevens at 10:57 EDT , Echocardiogram 05/09/22 18:05 Interpretation Summary Normal LV size. Left ventricular systolic function is normal. The estimated ejection fraction is 65 %. Moderate focal aortic valve calcification. Mean aortic valve gradient 13 mmHg. Mild aortic stenosis. There is moderate mitral annular calcification. Mild-Moderate (1-2+) eccentric mitral valve insufficiency. Ordering Physician: Maynor Kamara Referring Physician: ISA ALVARADO Performed By: Savita Ferguson RDCS Assessment & Plan Assessment/Plan (1) Transfusion reaction: QUALIFIERS: Encounter type: initial encounter Qualified Code(s): T80.92XA - Unspecified transfusion reaction, initial encounter (2) Anemia: PLAN: Impression: -Complement mediated hemolytic transfusion reaction.? Discussed yesterday with blood bank.? Evidently secondary to complement fixing antibody. However no allo or auto antibodies were identified per the blood bank. Patient did not receive incompatible unit.? -Discussed with Dr. Lepe. Confirmed no allo or auto antibodies identified. -Hgb stable this morning. -Total bilirubin normal. -LDH lower. -After more consideration, I think a more aggressive steroid prophylaxis regimen is warranted. Plan: -Prednisone 40 mg PO BID today and 40 mg in am tomorrow. -Benadryl 50 mg PO and Tylenol 1000 mg PO about one hour prior to RBC transfusion tomorrow. -If evidence of HTR again, then will have to transfer to tertiary center for further opinion on management including potential use of eculizumab. -Discussed with Dr. Mason.
[2022-05-11] MEDS: predniSONE 20 MG Tablet 40 MG PO ×2 (12:04→18:18)
[2022-05-12] VITALS (11 sets, daily range): BP systolic 130–169; BP diastolic 49–63; PULSE 72–80; RESP 16–20; TEMP 36.3–36.9; O2SAT 91–98
[2022-05-12] MEDS: Levothyroxine 50 MCG Tablet PO (05:59)
[2022-05-12 06:01] LABS: Absolute Lymphocyte Count 0.21 X10^3/uL (0.83-4.51); Absolute Neutrophil Count 6.8 X10^3/uL (2.0-7.7); Basophil# 0.04 X10^3/uL; Basophil% 0.5 % (0-1); Hematocrit 23.7 % (37-47); Hemoglobin 6.9 g/dL (12.0-15.0); Lymphocyte # 0.21 X10^3/ul (0.83-4.51); Lymphocyte % 2.8 % (19-41); Mean Corp Hgb Conc 29.1 g/dL (32-36); Mean Corpuscular Hgb 29.9 pg (27.0-32.0); Mean Corpuscular Volume 102.6 fL (81-99); Mean Platelet Vol. 12.2 fl (6.2-12.0); Monocyte# 0.44 X10^3/uL; Monocyte% 5.8 % (0-10); NRBC Flagged by Analyzer 3.9 % (0-5); Neutrophil # 6.79 X10^3/uL (2.7-7.7); Neutrophil % 89.1 % (47-70); POSITIVE DIFFERENTIAL YES; POSITIVE MORPHOLOGY YES; Platelet Count 213 K/mm3 (150-450); Red Blood Count 2.31 M/mm3 (4.2-5.4); White Blood Count 7.6 K/mm3 (4.4-11.0)
[2022-05-12 06:28] LABS: International Normalized Ratio 2.5
[2022-05-12 06:42] LABS: Differential Indicated SCAN CRITERIA MET; RBC Distribution Width SD 100.9 fl (35.1-43.9)
[2022-05-12 07:02] LABS: ALB/GLOB Ratio 0.9 RATIO (0.9-2.4); AST(SGOT) 39 U/L (15-37); Alanine Aminotransfer ALT/SGPT 41 U/L (13-56); Alkaline Phosphatase 62 U/L (45-117); Anion Gap 9 (5-15); BUN 47 mg/dL (7-18); BUN/Creat Ratio 25.7 RATIO (10-20); Calcium,Total 8.5 mg/dL (8.5-10.1); Chloride 102 mmol/L (98-107); Creatinine, Serum 1.83 mg/dL (0.55-1.02); EST Glomerular Filtration Rate 28 mL/min (>60); Est Glom Filt Rate - Afr Amer 34 mL/min (>60); Estimated Creatinine Clearance 15.85 ml/min; Globulin 3.2 g/dL (2.2-4.2); Glucose 261 mg/dL (74-106); Potassium 4.6 mmol/L (3.5-5.1); Protein, Total 6.2 g/dL (6.4-8.2); Sodium Level 134 mmol/L (136-145)
[2022-05-12] MEDS: Albuterol 2.5 MG/3 ML VIAL.NEB. INHALATION ×2 (07:13→14:15)
[2022-05-12 07:14] LABS: Anisocytosis 2+; Differential Comment SCANNED; Hypochromasia 1+; Macrocytosis 2+; Microcytosis 1+; Polychromasia RARE
[2022-05-12 07:15] LABS: Platelet Estimate ADEQUATE (ADEQ); Platelet Morphology LARGE
--- NOTE | 2022-05-12 08:04 | PN.HOSP_ITS ---
Reason for Visit Reason for Visit: Diagnoses Other myelodysplastic syndromes (05/09/22) Anemia, unspecified (05/09/22) Elevated white blood cell count, unspecified (05/09/22) Other disorders of bilirubin metabolism (05/09/22) Generalized abdominal pain (05/09/22) Unspecified abdominal pain (05/09/22) Other specified abnormalities of plasma proteins (05/09/22) Unspecified transfusion reaction, initial encounter (05/09/22) Subjective Subjective No events overnight. Objective Data Objective Data Vital Signs: Vital Signs Temp Pulse Resp BP Pulse Ox O2 Del Method O2 Flow Rate 36.4 C L 76 18 130/54 H 94 Nasal Cannula 2 05/12/22 03:00 05/12/22 07:13 05/12/22 07:13 05/12/22 03:00 05/12/22 07:13 05/12/22 07:13 05/12/22 07:13 Oxygen Flow Rate (L/min) 2 Oxygen Delivery Method Nasal Cannula Weight: 67.9 kg Body Mass Index (BMI) 29.2 Intake & Output: Intake and Output for Last 24 Hours 05/10/22 05/11/22 05/12/22 23:59 23:59 23:59 Intake Total 460 / 460 940 / 940 530 / 530 Output Total 400 / 400 600 / 600 200 / 200 Balance 60 / 60 340 / 340 330 / 330 Lab / Micro Data Result Diagrams: 05/12/22 05:06 05/12/22 05:06 Labs: Laboratory Results - last 24 hr 05/09/22 18:36: Haptoglobin < 10 L 05/12/22 05:06: PT 27.0 H, INR 2.5 05/12/22 05:06: WBC 7.6, RBC 2.31 L, Hgb 6.9 L, Hct 23.7 L, MCV 102.6 H, MCH 29.9, MCHC 29.1 L, RDW Std Deviation 100.9 H, RDW Coeff of Anjana 29.0 H, Plt Count 213, MPV 12.2 H, Immature Gran % (Auto) 1.800 H, Neut % (Auto) 89.1 H, Lymph % (Auto) 2.8 L, [place] % (Auto) 5.8, Eos % (Auto) 0.0, Baso % (Auto) 0.5, Absolute Neuts (auto) 6.8, Absolute Lymphs (auto) 0.21 L, Nucleated RBC % 3.9, Differential Comment SCANNED, Platelet Estimate ADEQUATE, Plt Morphology Comment LARGE, Polychromasia RARE, Hypochromasia 1+, Anisocytosis 2+, Microcytosis 1+, Macrocytosis 2+ 05/12/22 05:06: Sodium 134 L, Potassium 4.6, Chloride 102, Carbon Dioxide 23.0, Anion Gap 9, BUN 47 H, Creatinine 1.83 H, Estim Creat Clear Calc 15.85, Est GFR (MDRD) Af Amer 34 L, Est GFR (MDRD) Non-Af 28 L, BUN/Creatinine Ratio 25.7 H, Glucose 261 H, Calcium 8.5, Total Bilirubin 0.90, AST 39 H, ALT 41, Alkaline Phosphatase 62, Total Protein 6.2 L, Albumin 3.0 L, Globulin 3.2, Albumin/Globulin Ratio 0.9 Micro: Microbiology 05/10/22 03:20 Urine, Clean Catch Streptococcus pneumoniae Antigen (M - Final 05/10/22 03:20 Urine, Clean Catch Legionella Antigen - Final Physical Exam Const alert and no apparent distress HEENT head/scalp atraumatic Resp normal respiratory effort, no retractions, no use of accessory muscles and clear to auscultation bilaterally Cardio regular rate, regular rhythm, S1 normal heart sound and S2 normal heart sound GI normal to inspection, nondistended, normoactive bowel sounds, soft to palpation, non-tender and non-distended Assessment & Plan Assessment/Plan (1) Transfusion reaction: QUALIFIERS: Encounter type: initial encounter Qualified Code(s): T80.92XA - Unspecified transfusion reaction, initial encounter PLAN: DW blood bank: patient had a complement-mediated transfusion reaction. The tech spoke with Dr. Laura of pathology. Recommendation is for premedication with acetaminophen and diphenhydramine. Seen by Dr. Henning. 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 No allo or autoantibodies. Pt received compatible unit. LDH today 464 (down from 791) Checking SPEP, cold agglutinins DW Dr. Henning: PT researched this and found some anecdotal cases about this. Wha t he is recommending in his to premedicate the patient with 40 mg of prednisone twice daily for 3 doses and then to also premedicate, before the transfusion, with diphenhydramine and acetaminophen. Then to administer the blood. If patient does fine with that then that may be her treatment moving forward for further outpatient transfusions, however, if she has a reaction to that then he recommends transfer to a tertiary facility to be seen by more specialized insolvency practitioner. Patient was made aware of these recommendations. Will transfuse today (Hg 6.9). Will receive 50 of diphenhyramine and 1g acetaminophen beforehand. (2) Hyperbilirubinemia: PLAN: Resolved 2/2 above HIDA scan positive, but given potential transfusion reaction, it seems the choledocholithiasis (3) Leukocytosis: QUALIFIERS: Leukocytosis type: unspecified Qualified Code(s): D72.829 - Elevated white blood cell count, unspecified PLAN: Improved Cannot rule out demargination due to stress due to the patient's underlying duress versus infectious etiology at this time Resolved Infectious work up negative. DC pip/tazo (4) Abdominal pain: QUALIFIERS: Abdominal location: generalized Qualified Code(s): R10.84 - Generalized abdominal pain PLAN: Unclear etiology nothing clearly identified at this time. Patient does have cholelithiasis but no evidence of any bile duct stones present. HIDA scan positive but given what were seen would be a transfusion reaction it seems less likely that patient passed a gallstone contributes to the hyperbilirubinemia. Explained the patient that with her cholelithiasis, that she could be at risk for cholecystitis or choledocholithiasis. No surgery or GI input is necessary at this time. (5) Elevated troponin I level: PLAN: Likely type II event from strain from the transfusion reaction. No additional work-up at this time. Troponins went up slightly. Patient does have pacemaker. Suspect type II st rain from demand from what ever is causing her underlying issues. Echo shows an EF of 65%.. (6) Anemia: PLAN: Hg down to 7 Monitor for now Haptoglobin pending PLAN: Plan Chronic conditions * Atrial fibrillation: Status post permanent pacemaker and history of ablation. Continue with metoprolol succinate and anticoagulation with warfarin * Myelodysplastic syndrome: Patient was getting periodic transfusions. Currently hemoglobin is 8, therefore, no additional transfusions at this time. * Hypothyroidism: Continue with levothyroxine VTE prophylaxis: Not indicated as patient is already on warfarin CODE STATUS: Addressed with the patient. Patient wishes to be full code. Charges/Coding Visit Charges Inpatient E&M: 32725 Subs Hosp L2
--- NOTE | 2022-05-12 10:00 | CASEMGMT ---
SW spoke wit patient. Introduced self and role at [facility]. SW asked patient if she feels like she is strong enough to return to assisted living. Patient feel she is fine and wants to return. Patient's daughter is unavailable today. SW did talk with LISA and patient did relatively well. SW did talk with patient about [facility] or [facility] and patient would prefer to return to [place]. SW did try and reach patient's daughter, but she was unavailable and voice mailbox was full. Plan: Return to [place]. Carina Serna WAREHOUSE TEAM MEMBER AMRTHA
[2022-05-12] MEDS: Folic Acid 1 MG Tablet 0.5 MG PO (10:28)
[2022-05-12] MEDS: Calcium Carbonate 500 MG Tablet PO (10:28)
[2022-05-12] MEDS: predniSONE 20 MG Tablet 40 MG PO (10:28)
[2022-05-12] MEDS: Furosemide 40 MG Tablet PO (10:29)
[2022-05-12] MEDS: Montelukast 10 MG Tablet PO (10:29)
[2022-05-12] MEDS: Metoprolol(XL)Succ 25 MG Tablet PO (10:29)
[2022-05-12] MEDS: Pantoprazole Sodium 40 MG Tablet PO (10:29)
[2022-05-12] MEDS: Ascorbic Acid 500 MG Tablet PO (10:29)
[2022-05-12] MEDS: Calcitriol 0.25 MCG Capsule PO (10:29)
[2022-05-12] MEDS: guaiFENesin 1,200 MG Tablet 1200 MG PO (10:29)
[2022-05-12] MEDS: Pyridoxine HCl 100 MG Tablet PO (10:29)
[2022-05-12] MEDS: Allopurinol 100 MG Tablet PO (10:30)
[2022-05-12] MEDS: DiphenhydrAMINE 25 MG Capsule 50 MG PO (12:12)
[2022-05-12] MEDS: Acetaminophen 500 MG Tablet 1000 MG PO (12:12)
[2022-05-12] MEDS: Gabapentin 100 MG Capsule 200 MG PO (12:17)
--- NOTE | 2022-05-12 17:26 | PCM.DC ---
Discharge Instructions Diet Discharge Diet: No restrictions Dressing / Incision Call your doctor if you observe: Shortness of breath and Fainting spells Follow Up Care Test Results: Test results from this visit will be discussed in further detail at your follow-up appointment, if applicable. Discharge Plan Admission Admit Date/Time: 05/09/22 17:44 Primary Reason for Your Visit: transfusion reaction. Attending Provider: Maynor Kamara Primary Care Provider: Trace Larry Consulting Providers: Ricky López ; Pricilla Thurman ; Kelsie Rowley ; Arun Garnett ; Afshin Henning Discharge Orders/Prescriptions Prescriptions: Continued folic acid 400 mcg Tablet 0.4 mg PO DAILY calcium carbonate [Tums Ultra] 400 mg calcium (1,000 mg) Tablet,Chewable 400 mg PO DAILY warfarin 5 mg Tablet 5 mg PO DAILY montelukast [Singulair] 10 mg Tablet 10 mg PO DAILY ergocalciferol (vitamin D2) 1,250 mcg (50,000 unit) Capsule 1,250 mcg PO UD furosemide 40 mg Tablet 40 mg PO MOTUWETHFR Rx Instructions: EVERY Sunday, SUNDAY, SUNDAY, AND SUNDAY metoprolol succinate 25 mg Tablet Extended Release 24 Hr 25 mg PO DAILY loperamide 2 mg Tablet 2 mg PO TIDCM allopurinol 100 mg Tablet 100 mg PO DAILY calcitriol 0.25 mcg Capsule 0.25 mcg PO DAILY deferasirox 500 mg Tablet, Dispersible 1,000 mg PO DAILY acetaminophen 500 mg Tablet 1,000 mg PO BID guaifenesin 100 mg/5 mL Liquid 400 mg PO Q4H PRN (Reason: Congestion) gabapentin 100 mg Capsule 200 mg PO BID [place] Saline Gel [place],Non-Aerosol 1 spray INTRANASAL DAILY PRN (Reason: DRY NOSE) melatonin 5 mg Tablet 5 mg PO QHS albuterol sulfate 90 mcg/actuation Aero Powdr Breath Act W/Sensor 2 inh INHALATION Q6H ascorbic acid (vitamin C) 500 mg Tablet 500 mg PO DAILY levothyroxine 50 mcg Tablet 50 mcg PO DAILY pantoprazole 40 mg Tablet,Delayed Release (Dr/Ec) 40 mg PO DAILY pyridoxine (vitamin B6) 100 mg Tablet 100 mg PO DAILY Referrals / Follow Up: Trace Larry DO [Primary Care Provider] - Within 2 Weeks Afshin Henning DO [Med Staff - Active Staff] - Within 1 Week Disposition Disposition (needs filled in before D/C Order can be placed): Home, Self Care
--- NOTE | 2022-05-12 17:36 | DS.PCM_ITS ---
Providers Date of Admission: 05/09/22 Primary Care Physician: Dr. Trace Larry, DO Consultations 05/10/22 13:11 Consult: Oncology/Hematology Routine Consulting Provider: BERKLEY Hem/Onc Rosario Reason for Consult: transfusion reaction EMERGENT Consult: No MD Notified: Yes Date Notified: 05/10/22 Time Notified: 13:11 Method of Notification: Verbal Reason For Visit: HYPERBILIRUBINEMIA Diagnosis Discharge Diagnosis (1) Transfusion reaction: Status: Acute Code(s): T80.92XA - Unspecified transfusion reaction, initial encounter Qualifiers: Encounter type: initial encounter Qualified Code(s): T80.92XA - Unspe cified transfusion reaction, initial encounter Plan: [facility] blood bank: patient had a complement-mediated transfusion reaction. The tech spoke with Dr. Laura of pathology. Recommendation is for premedication with acetaminophen and diphenhydramine. Seen by Dr. Henning. 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 No allo or autoantibodies. Pt received compatible unit. LDH today 464 (down from 791) Checking SPEP, cold agglutinins DW Dr. Henning: PT researched this and found some anecdotal cases about this. What he is recommending in his to premedicate the patient with 40 mg of prednisone twice daily for 3 doses and then to also premedicate, before the transfusion, with diphenhydramine and acetaminophen. Then to administer the blood. If patient does fine with that then that may be her treatment moving forward for further outpatient transfusions, however, if she has a reaction to that then he recommends transfer to a tertiary facility to be seen by more specialized supervisor wheel shop. Patient was made aware of these recommendations. Will transfuse today (Hg 6.9). Will receive 50 of diphenhyramine and 1g acetaminophen beforehand. (2) Hyperbilirubinemia: Status: Acute Code(s): E80.6 - Other disorders of bilirubin metabolism Plan: Resolved 2/2 above HIDA scan positive, but given potential transfusion reaction, it seems the choledocholithiasis (3) Leukocytosis: Status: Acute Code(s): D72.829 - Elevated white blood cell count, unspecified Qualifiers: Leukocytosis type: unspecified Qualified Code(s): D72.829 - Elevated white blood cell count, unspecified Plan: Improved Cannot rule out demargination due to stress due to the patient's underlying duress versus infectious etiology at this time Resolved Infectious work up negative. DC pip/tazo (4) Abdominal pain: Status: Acute Code(s): R10.9 - Unspecified abdominal pain Qualifiers: Abdominal location: generalized Qualified Code(s): R10.84 - Generalized abdominal pain Plan: Unclear etiology nothing clearly identified at this time. Patient does have cholelithiasis but no evidence of any bile duct stones present. HIDA scan positive but given what were seen would be a transfusion reaction it seems less likely that patient passed a gallstone contributes to the hyperbilirubinemia. Explained the patient that with her cholelithiasis, that she could be at risk for cholecystitis or choledocholithiasis. No surgery or GI input is necessary at this time. (5) Elevated troponin I level: Status: Acute Code(s): R77.8 - Other specified abnormalities of plasma proteins Plan: Likely type II event from strain from the transfusion reaction. No additional work-up at this time. Troponins went up slightly. Patient does have pacemaker. Suspect type II strain from demand from what ever is causing her underlying issues. Echo shows an EF of 65%.. (6) Anemia: Status: Acute Code(s): D64.9 - Anemia, unspecified Plan: Hg down to 7 Monitor for now Haptoglobin pending Plan Chronic conditions * Atrial fibrillation: Status post permanent pacemaker and history of ablation. Continue with metoprolol succinate and anticoagulation with warfarin * Myelodysplastic syndrome: Patient was getting periodic transfusions. Currently hemoglobin is 8, therefore, no additional transfusions at this time. * Hypothyroidism: Continue with levothyroxine VTE prophylaxis: Not indicated as patient is already on warfarin CODE STATUS: Addressed with the patient. Patient wishes to be full code. Medications at Discharge Home Medications calcium carbonate 400 mg calcium (1,000 mg) chewable tablet (Tums Ultra) 400 mg PO DAILY 12/07/20 ergocalciferol (vitamin D2) 1,250 mcg (50,000 unit) capsule 1,250 mcg PO UD 12/07/20 folic acid 400 mcg tablet 0.4 mg PO DAILY 12/07/20 montelukast 10 mg tablet (Singulair) 10 mg PO DAILY 12/07/20 warfarin 5 mg tablet 5 mg PO DAILY 12/07/20 allopurinol 100 mg tablet 100 mg PO DAILY 06/28/21 calcitriol 0.25 mcg capsule 0.25 mcg PO DAILY 06/28/21 furosemide 40 mg tablet 40 mg PO MOTUWETHFR 06/28/21 loperamide 2 mg tablet 2 mg PO TIDCM CHRONIC DIARRHEA 06/28/21 metoprolol succinate 25 mg tablet,extended release 24 hr 25 mg PO DAILY HEART 06/28/21 deferasirox 500 mg dispersible tablet 1,000 mg PO DAILY 03/28/22 acetaminophen 500 mg tablet 1,000 mg PO BID PAIN 05/09/22 albuterol sulfate 90 mcg/actuation breath activated powder inhaler,sensor 2 inh inhalation Q6H COPD 05/09/22 ascorbic acid (vitamin C) 500 mg tablet 500 mg PO DAILY SUPPLEMENT 05/09/22 gabapentin 100 mg capsule 200 mg PO BID FOOT PAIN 05/09/22 guaifenesin 100 mg/5 mL oral liquid 400 mg PO Q4H PRN Congestion 05/09/22 levothyroxine 50 mcg tablet 50 mcg PO DAILY THYROID 05/09/22 melatonin 5 mg tablet 5 mg PO QHS SLEEP 05/09/22 pantoprazole 40 mg tablet,delayed release 40 mg PO DAILY GERD 05/09/22 pyridoxine (vitamin B6) 100 mg tablet 100 mg PO DAILY SUPPLEMENT 05/09/22 sodium chloride-aloe vera nasal spray ([place] Saline Gel nasal spray) 1 spray intranasal DAILY PRN DRY NOSE 05/09/22 Hospital Course Operations None Procedures None Summary of Care Provided Minutes Spent on Discharge: 40 Hospital Course: This is an 86-year-old female who is getting a transfusion at the infusion center and then felt her lips going. Patient received some Benadryl but then got worse and was complaining of abdominal pain. Rapid response team was called as patient's oxygen requirements went up. Patient was sent to the emergency room where hemoglobin was 8.1 but her bilirubin was 6.2. It is unclear if patient had a hemolytic transfusion reaction or if she had a gallstone issue. Patient did have imaging that confirmed that she had gallstones but no evidence of any choledocholithiasis or bile duct dilation. Bilirubin continue to improve. We did speak with the blood bank and it was confirmed the patient did have a transfusion reaction but was complement mediated no aloe or autoantibodies were identified. Dr. Henning of hematology was consulted because of this. This was clearly a very uncommon type of transfusion reaction. In the context of what Dr. Henning recommend visit the patient be premedicated with 40 mg of prednisone for 3 doses and then an hour before the transfusion 1 g of acetaminophen and 50 mg of diphenhydramine. Patient was transfused today and did well and had no ill effects of that. Patient has a history of myelodysplastic syndrome and has been transfused very frequently over the past several years. Is unclear if patient will ever have a transfusion reaction again but likely she will require this regimen or similar regimen before she undergoes transfusions in the future. When patient will require transfusions and when she would require the premedication is to be determined by the hematology team. Patient will follow-up with hematology in the next week or so. Weight / BMI Weight Weight: 67.9 kg Body Mass Index (BMI) 29.2 ABG / Lab / Microbiology Data Result Diagrams: 05/12/22 05:06 05/12/22 05:06 Laboratory: Laboratory Results - last 24 hr 05/12/22 05:06: PT 27.0 H, INR 2.5 05/12/22 05:06: WBC 7.6, RBC 2.31 L, Hgb 6.9 L, Hct 23.7 L, MCV 102.6 H, MCH 29.9, MCHC 29.1 L, RDW Std Deviation 100.9 H, RDW Coeff of Anjana 29.0 H, Plt Count 213, MPV 12.2 H, Immature Gran % (Auto) 1.800 H, Neut % (Auto) 89.1 H, Lymph % (Auto) 2.8 L, [place] % (Auto) 5.8, Eos % (Auto) 0.0, Baso % (Auto) 0.5, Absolute Neuts (auto) 6.8, Absolute Lymphs (auto) 0.21 L, Nucleated RBC % 3.9, Differential Comment SCANNED, Platelet Estimate ADEQUATE, Plt Morphology Comment LARGE, Polychromasia RARE, Hypochromasia 1+, Anisocytosis 2+, Microcytosis 1+, Macrocytosis 2+ 05/12/22 05:06: Sodium 134 L, Potassium 4.6, Chloride 102, Carbon Dioxide 23.0, Anion Gap 9, BUN 47 H, Creatinine 1.83 H, Estim Creat Clear Calc 15.85, Est GFR (MDRD) Af Amer 34 L, Est GFR (MDRD) Non-Af 28 L, BUN/Creatinine Ratio 25.7 H, Glucose 261 H, Calcium 8.5, Total Bilirubin 0.90, AST 39 H, ALT 41, Alkaline Phosphatase 62, Total Protein 6.2 L, Albumin 3.0 L, Globulin 3.2, Albumin/Globulin Ratio 0.9 05/12/22 08:37: Blood Type A NEGATIVE, Antibody Screen NEGATIVE, Crossmatch See Detail Microbiology: Microbiology 05/09/22 18:30 Blood Culture (Wb) - Left Wrist Blood Culture - Preliminary No growth in 48 hours. 05/09/22 18:36 Blood Culture (Wb) - Anticubital Left Blood Culture - Preliminary 05/10/22 03:20 Urine, Clean Catch Streptococcus pneumoniae Antigen (M - Final 05/10/22 03:20 Urine, Clean Catch Legionella Antigen - Final D/C Instructions Discharge Diet: No restrictions Call your doctor if you observe: Shortness of breath and Fainting spells Meaningful Use Info Meaningful Use Diagnoses (Choose all that apply): None applicable Discharge Plan Admission Admit Date/Time: 05/09/22 17:44 Primary Reason for Your Visit: transfusion reaction. Attending Provider: Maynor Kamara Primary Care Provider: Trace Larry Consulting Providers: Ricky López ; Pricilla Thurman ; Kelsie Rowley ; Arun Garnett ; Afshin Henning Discharge Orders/Prescriptions Prescriptions: Continued folic acid 400 mcg Tablet 0.4 mg PO DAILY calcium carbonate [Tums Ultra] 400 mg calcium (1,000 mg) Tablet,Chewable 400 mg PO DAILY warfarin 5 mg Tablet 5 mg PO DAILY montelukast [Singulair] 10 mg Tablet 10 mg PO DAILY ergocalciferol (vitamin D2) 1,250 mcg (50,000 unit) Capsule 1,250 mcg PO UD furosemide 40 mg Tablet 40 mg PO MOTUWETHFR Rx Instructions: EVERY Sunday, SUNDAY, SUNDAY, AND SUNDAY metoprolol succinate 25 mg Tablet Extended Release 24 Hr 25 mg PO DAILY loperamide 2 mg Tablet 2 mg PO TIDCM allopurinol 100 mg Tablet 100 mg PO DAILY calcitriol 0.25 mcg Capsule 0.25 mcg PO DAILY deferasirox 500 mg Tablet, Dispersible 1,000 mg PO DAILY acetaminophen 500 mg Tablet 1,000 mg PO BID guaifenesin 100 mg/5 mL Liquid 400 mg PO Q4H PRN (Reason: Congestion) gabapentin 100 mg Capsule 200 mg PO BID [place] Saline Gel [place],Non-Aerosol 1 spray INTRANASAL DAILY PRN (Reason: DRY NOSE) melatonin 5 mg Tablet 5 mg PO QHS albuterol sulfate 90 mcg/actuation Aero Powdr Breath Act W/Sensor 2 inh INHALATION Q6H ascorbic acid (vitamin C) 500 mg Tablet 500 mg PO DAILY levothyroxine 50 mcg Tablet 50 mcg PO DAILY pantoprazole 40 mg Tablet,Delayed Release (Dr/Ec) 40 mg PO DAILY pyridoxine (vitamin B6) 100 mg Tablet 100 mg PO DAILY Referrals / Follow Up: Traec Larry DO [Primary Care Provider] - Within 2 Weeks Afshin Henning DO [Med Staff - Active Staff] - Within 1 Week Disposition Disposition (needs filled in before D/C Order can be placed): Home, Self Care Charges/Coding Visit Charges Inpatient E&M: 50385 Disch Hosp >30min
--- NOTE | 2022-05-12 18:27 | NURSING ---
Addendum entered by Marlene See 05/12/22 18:59: Spoke with Daughter Dianne, updated on pt coming home. Dianne stated she 'would figure it out' and asked where to send someone to come get pt. Informed of coming to front entrance and calling floor when arrived so we can bring pt down. Call placed to [facility], report given to Marielos nurse. Original Note: Call placed to [facility] regarding d/c; unable to get ahold of her, voicemail full. Call placed to [facility], spoke to Marielos, nurse. Advised Marielos that we were to call them with d/c and they would help coordinate d/t daughter having family emergency per HALEY. Per Marielos, BJ is gone for the day, will try to contact grandson.
[2022-05-15 15:08] LABS: Albumin 3.4 g/dL (2.9-4.4); Alpha-1-Globulins 0.3 g/dL (0.0-0.4); Alpha-2-Globulins 0.6 g/dL (0.4-1.0); Gamma Globulin 0.6 g/dL (0.4-1.8); Immunoglobulin A 361 mg/dL (64-422); Immunoglobulin G 474 mg/dL (586-1602); PROEL- TOTAL PROTEIN 5.5 g/dL (6.0-8.5)
[2022-05-16 11:12] LABS: IMMUNOFIXATION RESULT,S Comment: (.); Immunoglobulin M 19 mg/dL (26-217)
== END 2022-05-12 19:43 | disposition home or self-care (01) | DRG 812 ==
LOC: ED 16:53 → PCU 17:51
PROVIDERS: Internal Medicine Hematology & Oncology; Emergency Provider Emergency Medicine; PCP Student in an Organized Health Care Education/Training Program
DX: T80 Complications following infusion, transfusion and therapeutic injection (principal); I24.8 Other forms of acute ischemic heart disease; Z99.81 Dependence on supplemental oxygen; D46.1 Refractory anemia with ring sideroblasts; J44.9 Chronic obstructive pulmonary disease, unspecified; I48.91 Unspecified atrial fibrillation; D72.829 Elevated white blood cell count, unspecified; E03.9 Hypothyroidism, unspecified; K80.20 Calculus of gallbladder without cholecystitis without obstruction; E80.6 Other disorders of bilirubin metabolism; X58.XXXA Exposure to other specified factors, initial encounter; R10.84 Generalized abdominal pain; Z95.0 Presence of cardiac pacemaker; Z79.01 Long term (current) use of anticoagulants; Z79.899 Other long term (current) drug therapy
CPT/HCPCS: 36415; 36430; 71045; 74176; 76705; 78227; 80048; 80053; 80076; 81001; 82784; 83010; 83615; 83690; 84165; 84484; 85025; 85610; 86157; 86334; 86850; 86900; 86901; 86920; 86922; 87040; 87449; 93005; 93306; 94640; 94668; 97110; 97150; 97162; 97166; 97535; 99252; 99284; A9537; J7040; J7050; P9016; P9040; A4216; G0463; J2405; J2805

== ENCOUNTER → 2022-05-09 | Outpatient (CLI) | payer MEDICARE, OTHER, SELFPAY ==
[2022-05-09] VITALS (10 sets, daily range): BP systolic 109–171; BP diastolic 39–74; PULSE 62–75; RESP 16–18; TEMP 36.3–36.8; O2SAT 85–100; BMI 27.3
[2022-05-09] MEDS: 0.9% NaCl Peripheral Flush Adult/Peds IV (10:25)
[2022-05-09] MEDS: DiphenhydrAMINE 50 MG/ML Syringe IV (11:47)
[2022-05-09] MEDS: Acetaminophen 500 MG Tablet 1000 MG PO (12:28)
[2022-05-09 20:26] LABS: Transfus. RXN Indirect Bilirbn 1.94 mg/dL (0.0-1.0); Transfuse RXN Direct Bilirubin 1.26 mg/dL (0.00-0.30); Transfusion RXN BUN 44 mg/dL (7-18)
== END | disposition home or self-care (01) ==
LOC: MEDOUTP 09:54
PROVIDERS: PCP Student in an Organized Health Care Education/Training Program; Referring Provider Internal Medicine Hematology & Oncology; Visit Provider Internal Medicine Hematology & Oncology
DX: D46.9 Myelodysplastic syndrome, unspecified (principal)
CPT/HCPCS: 36430; 86850; 86900; 86901; 86920; 86922; J7040; J7050; P9040; A4216

== ENCOUNTER 2022-06-30 08:08 | Outpatient (CLI) | payer MEDICARE, OTHER, SELFPAY ==
[2022-06-30 08:37] VITALS: BP 137/58; PULSE 78; RESP 16; TEMP 36.9; O2SAT 95; BMI 27.5
[2022-06-30] MEDS: 0.9% NaCl Peripheral Flush Adult/Peds IV (08:42)
[2022-06-30 09:07] VITALS: BP 132/69; PULSE 71; RESP 16; TEMP 36.7; O2SAT 96
[2022-06-30 10:07] VITALS: BP 151/71; PULSE 73; RESP 16; TEMP 36.6
[2022-06-30 11:10] VITALS: BP 156/78; PULSE 75; RESP 16; TEMP 36.9; O2SAT 95
== END 2022-06-30 08:09 | disposition home or self-care (01) ==
LOC: MEDOUTP 08:08
PROVIDERS: PCP Student in an Organized Health Care Education/Training Program; Referring Provider Internal Medicine Hematology & Oncology; Visit Provider Internal Medicine Hematology & Oncology
DX: D46.20 Refractory anemia with excess of blasts, unspecified (principal)
CPT/HCPCS: 36430; 86850; 86900; 86901; 86920; 86922; J7040; P9016; A4216

== ENCOUNTER 2022-07-20 17:09 | Inpatient (IN) | payer MEDICARE, OTHER, SELFPAY ==
[2022-07-20 17:09] VITALS: BP 137/38; PULSE 82; RESP 18; TEMP 35.9; O2SAT 93
[2022-07-20 17:32] VITALS: BMI 29.5
--- NOTE | 2022-07-20 17:38 | EX.ED.DYSGE1 ---
HPI History of Present Illness Chief Complaint: Abn Labs Detail of Chief Complaint: Low hemoglobin Informant: patient Narrative Narrative: Patient presents the emergency department with concern for low hemoglobin. Patient states she think she had blood work today that showed a hemoglobin of 6.5. Patient has history of myelodysplastic disorder. She had multiple transfusions in the past. Patient states she has been fatigued for the last several days. She denies any blood in her stool or urine. She is on Coumadin for history of A-fib. Patient also recently started Augmentin for URI symptoms. Prior similar symptoms: Yes PFSH [facility] Medical History (Updated 07/20/22 @ 18:[address] Rafy Darnell, DO) Afib Anemia CHF (congestive heart failure) CKD (chronic kidney disease) COPD (chronic obstructive pulmonary disease) Diabetes Hypothyroid MDS (myelodysplastic syndrome), low grade Myelodysplastic syndrome Pacemaker Home Medications calcium carbonate 400 mg calcium (1,000 mg) chewable tablet (Tums Ultra) 400 mg PO DAILY 12/07/20 [History Last Taken Unknown] ergocalciferol (vitamin D2) 1,250 mcg (50,000 unit) capsule 1,250 mcg PO UD 12/07/20 [History Last Taken 04/30/22] folic acid 400 mcg tablet 0.4 mg PO DAILY 12/07/20 [History Last Taken 05/08/22] montelukast 10 mg tablet (Singulair) 10 mg PO DAILY 12/07/20 [History Last Taken 05/08/22] warfarin 5 mg tablet 5 mg PO DAILY 12/07/20 [History Last Taken 05/08/22] allopurinol 100 mg tablet 100 mg PO DAILY 06/28/21 [History Last Taken 05/08/22] calcitriol 0.25 mcg capsule 0.25 mcg PO DAILY 06/28/21 [History Last Taken 05/08/22] furosemide 40 mg tablet 40 mg PO MOTUWETHFR 06/28/21 [History Last Taken 05/08/22] loperamide 2 mg tablet 2 mg PO TIDCM CHRONIC DIARRHEA 06/28/21 [History Last Taken 05/09/22] metoprolol succinate 25 mg tablet,extended release 24 hr 25 mg PO DAILY HEART 06/28/21 [History Last Taken 05/08/22] deferasirox 500 mg dispersible tablet 1,000 mg PO DAILY 03/28/22 [History Last Taken 05/08/22] acetaminophen 500 mg tablet 1,000 mg PO BID PAIN 05/09/22 [History Last Taken 05/09/22] albuterol sulfate 90 mcg/actuation breath activated powder inhaler,sensor 2 inh inhalation Q6H COPD 05/09/22 [History Last Taken 05/08/22] ascorbic acid (vitamin C) 500 mg tablet 500 mg PO DAILY SUPPLEMENT 05/09/22 [History Last Taken 05/08/22] gabapentin 100 mg capsule 200 mg PO BID FOOT PAIN 05/09/22 [History Last Taken 05/09/22] guaifenesin 100 mg/5 mL oral liquid 400 mg PO Q4H PRN Congestion 05/09/22 [History Last Taken 05/09/22] levothyroxine 50 mcg tablet 50 mcg PO DAILY THYROID 05/09/22 [History Last Taken 05/08/22] melatonin 5 mg tablet 5 mg PO QHS SLEEP 05/09/22 [History Last Taken 05/08/22] pantoprazole 40 mg tablet,delayed release 40 mg PO DAILY GERD 05/09/22 [History Last Taken 05/09/22] pyridoxine (vitamin B6) 100 mg tablet 100 mg PO DAILY SUPPLEMENT 05/09/22 [History Last Taken 05/09/22] sodium chloride-aloe vera nasal spray ([place] Saline Gel nasal spray) 1 spray intranasal DAILY PRN DRY NOSE 05/09/22 [History Last Taken 05/08/22] Allergy/AdvReac Type Severity Reaction Status Date / Time digoxin Allergy PT UNSURE Verified 07/20/22 17:09 OF REACTION Family History Other Heart disease Social History (Updated 05/09/22 @ 18:30 by Alana Gerard) housing: assisted living facility Smoking Status: Never smoker alcohol intake: never substance use type: does not use ROS ROS ED Review of Systems ROS Unobtainable: other Constitutional Constitutional ED: Reports lethargy; Denies chills, fever(s), sweats or weight loss Eyes Eyes: Denies blurry vision, change in vision or diplopia ENT ENT ED: Denies rhinorrhea or sore throat Cardiovascular Cardiovascular: Denies chest pain, orthopnea or racing heartbeat Respiratory/Chest Respiratory/Chest: Reports dyspnea and dyspnea on exertion; Denies cough, orthopnea or sputum Gastrointestinal Gastrointestinal: Denies abdominal pain, diarrhea, nausea or vomiting Genitourinary Genitourinary ED: Denies dysuria, hematuria or urinary frequency Musculoskeletal Musculoskeletal: Denies arthralgias, back pain, myalgias or neck pain Integumentary Denies abscess, Abrasions or rash Neurologic Neurologic: Reports weakness; Denies headache(s) Psychiatric Psychiatric: Denies anxiety, depression or suicidal thoughts Endocrine Endocrinology: Denies polydipsia, polyphagia or polyuria Hematologic/Lymphatic Hematologic/Lymphatic: Denies easy bleeding, easy bruising or lymphadenopathy Allergic/Immunologic Allergic/Immunologic ED: Denies mouth swelling, tongue swelling or urticaria EXAM Physical Exam Const Vital Signs: 07/20/22 17:09 07/20/22 17:32 Temperature 96.7 F L Temperature Source Temporal Pulse Rate 82 Respiratory Rate 18 Respiratory Effort Normal Non-Labored Respiratory Pattern Normal Blood Pressure 137/38 H Blood Pressure Mean 71 Pulse Ox 93 Oxygen Delivery Method Nasal Cannula Oxygen Flow Rate (L/min) 2 Positive well nourished and well developed General Appearance ED: well developed and NAD HEENT Reports TM's clear and moist mucous membranes normocephalic and atraumatic; Negative for trauma or tenderness Tympanic Membrane ED: Yes TM's clear Eyes PERRL and EOMs intact bilaterally General Eye ED: Negative for pale conjunctiva or scleral icterus Neck no lymphadenopathy, supple and no JVD General: Negative for tenderness Chest Wall inspection of chest normal and palpation of chest normal Chest: Negative for tenderness Resp normal respiratory effort and clear to auscultation bilaterally Effort and Inspection: Negative for respiratory distress or pain with movement Auscultation: Negative for rhonchi, wheezes or diminished lung sounds Cardio regular rate, regular rhythm, S1 normal heart sound, S2 normal heart sound and no murmurs Peripheral Pulses: pulses 2+ throughout GI normal to inspection, nondistended, normoactive bowel sounds, soft to palpation, non-tender, non-distended and no masses Back/Spine no CVA tenderness and no thoracic nor lumbar tenderness Extremity normal to inspection General Extremety ED: Negative for edema General Extremity: Negative for edema Neuro oriented x3, CN's II-XII intact bilaterally, no sensory deficits noted and gait normal Sensorium / Orientation: awake, alert, oriented to person, oriented to place and oriented to time Motor Exam: strength 5/5 throughout and strength abnormal Psych mental status grossly normal Skin no rashes or lesions noted and no wounds MDM MDM MDM Narrative Medical decision making narrative: I discussed case with Dr. Afshin Henning who is patient's rivet sticker. He was unaware that the patient was coming to the emergency department as the primary care physician had ordered the blood work. He does state that there is a protocol that they use with her as she has had a prior reaction to transfusions and they usually give her 50 mg of prednisone 13 hours before transfusion as well as 50 mg of prednisone 7 hours before transfusion and then 50 mg of prednisone an hour before transfusion along with 50 mg of Benadryl. Case discussed with hospitalist will evaluate patient for admission. Lab Data Attestation: I reviewed the patient's lab results. Labs: Laboratory Results - last 24 hr 07/20/22 07/20/22 17:30 17:30 WBC 6.7 RBC 2.14 L Hgb 6.7 L Hct 22.6 L MCV 105.6 H MCH 31.3 MCHC 29.6 L RDW Std Deviation 110.9 H RDW Coeff of Anjana 30.9 H Plt Count 201 MPV 11.6 Immature Gran % (Auto) 0.400 Neut % (Auto) 68.0 Lymph % (Auto) 12.6 L [place] % (Auto) 10.0 Eos % (Auto) 8.3 H Baso % (Auto) 0.7 Absolute Neuts (auto) 4.6 Absolute Lymphs (auto) 0.85 Nucleated RBC % 0.6 Crossmatch See Detail Discharge Plan Triage Chief Complaint: Abn Labs ED Provider: Rafy Darnell Dx/Rx/DC Orders Clinical Impression: Anemia, Generalized weakness, History of atrial fibrillation, Chronic anticoagulation Prescriptions: No Action folic acid 400 mcg Tablet 0.4 mg PO DAILY calcium carbonate [Tums Ultra] 400 mg calcium (1,000 mg) Tablet,Chewable 400 mg PO DAILY warfarin 5 mg Tablet 5 mg PO DAILY montelukast [Singulair] 10 mg Tablet 10 mg PO DAILY ergocalciferol (vitamin D2) 1,250 mcg (50,000 unit) Capsule 1,250 mcg PO UD furosemide 40 mg Tablet 40 mg PO MOTUWETHFR Rx Instructions: EVERY Sunday, SUNDAY, SUNDAY, AND SUNDAY metoprolol succinate 25 mg Tablet Extended Release 24 Hr 25 mg PO DAILY loperamide 2 mg Tablet 2 mg PO TIDCM allopurinol 100 mg Tablet 100 mg PO DAILY calcitriol 0.25 mcg Capsule 0.25 mcg PO DAILY deferasirox 500 mg Tablet, Dispersible 1,000 mg PO DAILY acetaminophen 500 mg Tablet 1,000 mg PO BID guaifenesin 100 mg/5 mL Liquid 400 mg PO Q4H PRN (Reason: Congestion) gabapentin 100 mg Capsule 200 mg PO BID [place] Saline Gel [place],Non-Aerosol 1 spray INTRANASAL DAILY PRN (Reason: DRY NOSE) melatonin 5 mg Tablet 5 mg PO QHS albuterol sulfate 90 mcg/actuation Aero Powdr Breath Act W/Sensor 2 inh INHALATION Q6H ascorbic acid (vitamin C) 500 mg Tablet 500 mg PO DAILY levothyroxine 50 mcg Tablet 50 mcg PO DAILY pantoprazole 40 mg Tablet,Delayed Release (Dr/Ec) 40 mg PO DAILY pyridoxine (vitamin B6) 100 mg Tablet 100 mg PO DAILY Primary Care Provider: Trace Larry Referrals: Trace Larry DO [Primary Care Provider] - Disposition Disposition: Acute Care Hospital [facility]
[2022-07-20] MEDS: predniSONE 20 MG Tablet 50 MG PO ×2 (17:49→23:15)
[2022-07-20 18:07] LABS: Absolute Lymphocyte Count 0.85 X10^3/uL (0.83-4.51); Absolute Neutrophil Count 4.6 X10^3/uL (2.0-7.7); Basophil# 0.05 X10^3/uL; Basophil% 0.7 % (0-1); Eosinophil# 0.56 X10^3/uL; Eosinophils% 8.3 % (0-5); Hematocrit 22.6 % (37-47); Hemoglobin 6.7 g/dL (12.0-15.0); Lymphocyte # 0.85 X10^3/ul (0.83-4.51); Lymphocyte % 12.6 % (19-41); Mean Corp Hgb Conc 29.6 g/dL (32-36); Mean Corpuscular Hgb 31.3 pg (27.0-32.0); Mean Corpuscular Volume 105.6 fL (81-99); Mean Platelet Vol. 11.6 fl (6.2-12.0); Monocyte# 0.67 X10^3/uL; NRBC Flagged by Analyzer 0.6 % (0-5); Neutrophil # 4.57 X10^3/uL (2.7-7.7); POSITIVE MORPHOLOGY YES; Platelet Count 201 K/mm3 (150-450); RBC Distribution Width CV 30.9 % (11.6-14.6); Red Blood Count 2.14 M/mm3 (4.2-5.4); White Blood Count 6.7 K/mm3 (4.4-11.0)
[2022-07-20 18:08] LABS: Differential Indicated SCAN CRITERIA MET; RBC Distribution Width SD 110.9 fl (35.1-43.9)
[2022-07-20 18:20] LABS: Anion Gap 9 (5-15); BUN 35 mg/dL (7-18); BUN/Creat Ratio 15.5 RATIO (10-20); Calcium,Total 9.4 mg/dL (8.5-10.1); Chloride 103 mmol/L (98-107); Creatinine, Serum 2.26 mg/dL (0.55-1.02); EST Glomerular Filtration Rate 22 mL/min (>60); Est Glom Filt Rate - Afr Amer 26 mL/min (>60); Estimated Creatinine Clearance 12.83 ml/min; Glucose 161 mg/dL (74-106); Sodium Level 140 mmol/L (136-145)
[2022-07-20 18:36] LABS: Anisocytosis 3+; Differential Comment SCANNED; Hypochromasia 1+; Macrocytosis 2+; Microcytosis 1+
[2022-07-20 18:41] VITALS: BP 115/56; PULSE 74; RESP 17; TEMP 36.9; O2SAT 97
[2022-07-20 20:14] VITALS: BP 123/30; PULSE 72; RESP 20; TEMP 36.8; O2SAT 96
[2022-07-20 20:17] VITALS: BMI 29.2
[2022-07-20] MEDS: 0.9% Saline Lock 10 ML Syringe IV (20:54)
--- NOTE | 2022-07-20 21:04 | PCM.HP.STD ---
HPI - General General Date of Admission: 07/20/22 Date of Service: 07/20/22 Chief Complaint: Symptomatic severe anemia on blood work, history of MDS HPI Narrative APRIL BATRES, is a 86 F with history of MDS being followed by Dr. Henning was sent to ED after blood work shows hemoglobin 6.5 g. Patient lives in assisted living [facility] where she had blood work today which shows H&H 6.5/20.4. WBC 5.3 thousand. Platelet count 1 84,000. Magnesium 1.8. BUNs/creatinine 32/1.86. Calcium 9.1. Bicarb 32. Patient is states that for last 1 week she is feeling short of breath on walking to level floor. She uses a walker for mobilization. She does not climb stairs. On walking she feels dizzy lightheaded but she did not pass out. She had extreme fatigue for about 1 week. Denies external loss of blood including hematemesis melena hematochezia, hemoptysis or hematuria. History of A-fib on warfarin. She also has history of COPD and had mild URI symptoms and was started on Augmentin as an outpatient. She denies fever. Mild chronic COPD with cough. She has history of recurrent PRBC transfusion with requirement anywhere between 3 to 6 weeks. In ED, vitals in normal limit. She is not dyspneic at rest. Respiratory rate 18. Pulse ox 93% on 2 L of oxygen. Lab work done in ED and reviewed. [facility] Medical History Afib Anemia CHF (congestive heart failure) CKD (chronic kidney disease) COPD (chronic obstructive pulmonary disease) Diabetes Hypothyroid MDS (myelodysplastic syndrome), low grade Myelodysplastic syndrome Pacemaker Home Medications calcium carbonate 400 mg calcium (1,000 mg) chewable tablet (Tums Ultra) 400 mg PO DAILY 12/07/20 [History Last Taken Unknown] ergocalciferol (vitamin D2) 1,250 mcg (50,000 unit) capsule 1,250 mcg PO UD 12/07/20 [History Last Taken 07/09/22] montelukast 10 mg tablet (Singulair) 10 mg PO DAILY 12/07/20 [History Last Taken 07/19/22] warfarin 5 mg tablet 5 mg PO DAILY 12/07/20 [History Last Taken 07/19/22] allopurinol 100 mg tablet 100 mg PO DAILY 06/28/21 [History Last Taken 07/20/22] calcitriol 0.25 mcg capsule 0.25 mcg PO DAILY 06/28/21 [History Last Taken 07/20/22] furosemide 40 mg tablet 40 mg PO MOTUWETHFR 06/28/21 [History Last Taken 07/20/22] loperamide 2 mg tablet 2 mg PO TIDCM CHRONIC DIARRHEA 06/28/21 [History Last Taken 07/20/22] metoprolol succinate 25 mg tablet,extended release 24 hr 25 mg PO DAILY HEART 06/28/21 [History Last Taken 05/08/22] acetaminophen 500 mg tablet 1,000 mg PO BID PAIN 05/09/22 [History Last Taken 07/20/22] albuterol sulfate 90 mcg/actuation breath activated powder inhaler,sensor 2 inh inhalation Q6H COPD 05/09/22 [History Last Taken 07/20/22] gabapentin 100 mg capsule 200 mg PO BID FOOT PAIN 05/09/22 [History Last Taken 07/20/22] guaifenesin 100 mg/5 mL oral liquid 400 mg PO Q4H PRN Congestion 05/09/22 [History Last Taken 07/20/22] levothyroxine 50 mcg tablet 50 mcg PO DAILY THYROID 05/09/22 [History Last Taken 07/20/22] melatonin 5 mg tablet 5 mg PO QHS SLEEP 05/09/22 [History Last Taken 07/19/22] pantoprazole 40 mg tablet,delayed release 40 mg PO DAILY GERD 05/09/22 [History Last Taken 07/20/22] sodium chloride-aloe vera nasal spray ([place] Saline Gel nasal spray) 1 spray intranasal DAILY PRN DRY NOSE 05/09/22 [History Last Taken 05/08/22] amoxicillin 500 mg-potassium clavulanate 125 mg tablet 1 tab PO Q12H UPPER RESPIRATORY 07/20/22 [History Last Taken 07/20/22] lenalidomide 2.5 mg capsule (Revlimid) 2.5 mg PO DAILY . 07/20/22 [History Last Taken 07/20/22] Allergy/AdvReac Type Severity Reaction Status Date / Time digoxin Allergy PT UNSURE Verified 07/20/22 17:09 OF REACTION Family History Other Heart disease Social History housing: assisted living facility Smoking Status: Never smoker alcohol intake: never substance use type: does not use ROS ROS Narrative Constitutional: Reports fatigue and weakness. No fever. HEENT: Reports systems reviewed and no addt'l complaints, except as documented Respiratory/Chest: Positive for dyspnea on exertion as described in HPI. No acute shortness of breath or respiratory distress or wheezing. CVS: Denies acute chest pain or tightness. History of heart failure on Lasix. Gastrointestinal: Denies coffee ground emesis, hematemesis or vomiting Genitourinary: Denies burning urination or new urinary tract symptoms Musculoskeletal: Bilateral TKR. Walks on walker. Denies acute joint pain or limited range of motion. No acute injury Neurologic: Denies seizure-like symptoms. No acute strokelike symptoms. skin: No ulcer. No rash Endocrinology: Reports systems reviewed and no addt'l complaints, except as documented Hematologic/Lymphatic: Reports systems reviewed and no addt'l complaints, except as documented Rest 14 ROS are negative except as mentioned in HPI Vital Signs Vital Signs Vital Signs: 07/20/22 17:09 07/20/22 17:32 07/20/22 18:41 Temperature 96.7 F L 98.4 F Temperature Source Temporal Oral Pulse Rate 82 74 Respiratory Rate 18 17 Respiratory Effort Normal Non-Labored Respiratory Pattern Normal Blood Pressure 137/38 H 115/56 L Blood Pressure Mean 71 75 Blood Pressure Source Blood Pressure Position Blood Pressure Location Pulse Ox 93 97 Oxygen Delivery Method Nasal Cannula Nasal Cannula Oxygen Flow Rate (L/min) 2 2 07/20/22 20:14 Temperature 98.2 F Temperature Source Oral Pulse Rate 72 Respiratory Rate 20 H Respiratory Effort Respiratory Pattern Blood Pressure 123/30 H Blood Pressure Mean 61 Blood Pressure Source Monitor Blood Pressure Position Semi-Fowlers Blood Pressure Location Left Arm Pulse Ox 96 Oxygen Delivery Method Nasal Cannula Oxygen Flow Rate (L/min) 3 Weight Weight: 149 lb 0.52 oz Body Mass Index (BMI) 29.2 Results Lab / Micro Data Result Diagrams: 07/20/22 17:30 07/20/22 17:30 Labs: Laboratory Results - last 24 hr 07/20/22 17:30: WBC 6.7, RBC 2.14 L, Hgb 6.7 L, Hct 22.6 L, MCV 105.6 H, MCH 31.3, MCHC 29.6 L, RDW Std Deviation 110.9 H, RDW Coeff of Anjana 30.9 H, Plt Count 201, MPV 11.6, Immature Gran % (Auto) 0.400, Neut % (Auto) 68.0, Lymph % (Auto) 12.6 L, [place] % (Auto) 10.0, Eos % (Auto) 8.3 H, Baso % (Auto) 0.7, Absolute Neuts (auto) 4.6, Absolute Lymphs (auto) 0.85, Nucleated RBC % 0.6, Differential Comment SCANNED, Hypochromasia 1+, Anisocytosis 3+, Microcytosis 1+, Macrocytosis 2+ 07/20/22 17:30: Sodium 140, Potassium 4.0, Chloride 103, Carbon Dioxide 28.0, Anion Gap 9, BUN 35 H, Creatinine 2.26 H, Estim Creat Clear Calc 12.83, Est GFR (MDRD) Af Amer 26 L, Est GFR (MDRD) Non-Af 22 L, BUN/Creatinine Ratio 15.5, Glucose 161 H, Calcium 9.4 07/20/22 17:30: Blood Type A NEGATIVE, Antibody Screen NEGATIVE, Crossmatch See Detail Assessment & Plan Assessment/Plan (1) Anemia: (2) MDS (myelodysplastic syndrome): PLAN: Plan This 86-year-old female with history of MDS, PRBC transfusion dependent was admitted for severe symptomatic anemia for 1 week. 1. Severe symptomatic anemia due to MDS: Patient is being admitted on MedSurg floor. She has history of complement mediated transfusion reaction during last admission in April 2022 therefore started on prednisone and Benadryl regimen. As per blueprint processor Dr. Henning who talked to Dr. Blanchard, prednisone 50 mg 13 hours, 7 hours and then 50 mg prednisone 1 hour along with 50 mg Benadryl before transfusion. Orders put in. 2 units PRBC type and crossmatch ordered. Patient is admitted on MedSurg floor. 2. MDS: Patient had anemia work-up as an outpatient. Serum iron level was 165. Detail iron work-up, reticulocyte panel, folic acid and B12 ordered. She follows Dr. Henning. 3. COPD with outpatient mild URI/bronchitis: Continue Augmentin started as an outpatient. DuoNeb as needed. Pulmicort inhalation, Mucinex, incentive spirometry and Pep. Does not seem patient is in COPD exacerbation but dyspnea on exertion due to severe anemia. Chest x-ray PA and lateral ordered. 4. History of transfusion reaction, complementary reaction and hyperbilirubinemia during previous admission in june 2022: Liver chemistry ordered. 5. Other comorbidities include history of A-fib status post permanent pacemaker and history of ablation. Patient on metoprolol succinate. Hold warfarin. Twelve-lead EKG ordered. 6. Hypothyroidism: Patient on levothyroxine. 7. Chronic HFpEF: Patient had echo in April 2022 reported EF 65% with no RWMA. Left atrium enlarged. 1-2+ eccentric MR, , 1-2+ TR. Mild aortic stenosis, mean AV gradient 13 mmHg. Patient does not seem heart failure. No extra IV fluid besides blood transfusion. Home regimen of Lasix continued. Living will/advanced directive/end of life care: Patient doesn't have living will or advanced directive. His daughter is listed as next of kin. After discussion of benefits/risks procedures involved with full code, DNR CC arrest and DNR CC, the patient opted for full code. Patient does want artificial life support including intubation, tube feed, ventilator and/chest compression, central venous catheter, vasopressor and DC shock if needed Total time spent in [id number] encounter in discussion of advanced directive 17 minutes. Laboratory Results 07/20/22 17:30: WBC 6.7, RBC 2.14 L, Hgb 6.7 L, Hct 22.6 L, MCV 105.6 H, MCH 31.3, MCHC 29.6 L, RDW Std Deviation 110.9 H, RDW Coeff of Anjana 30.9 H, Plt Count 201, MPV 11.6, Immature Gran % (Auto) 0.400, Neut % (Auto) 68.0, Lymph % (Auto) 12.6 L, [place] % (Auto) 10.0, Eos % (Auto) 8.3 H, Baso % (Auto) 0.7, Absolute Neuts (auto) 4.6, Absolute Lymphs (auto) 0.85, Nucleated RBC % 0.6, Differential Comment SCANNED, Hypochromasia 1+, Anisocytosis 3+, Microcytosis 1+, Macrocytosis 2+ 07/20/22 17:30: Sodium 140, Potassium 4.0, Chloride 103, Carbon Dioxide 28.0, Anion Gap 9, BUN 35 H, Creatinine 2.26 H, Estim Creat Clear Calc 12.83, Est GFR (MDRD) Af Amer 26 L, Est GFR (MDRD) Non-Af 22 L, BUN/Creatinine Ratio 15.5, Glucose 161 H, Calcium 9.4 07/20/22 17:30: Blood Type A NEGATIVE, Antibody Screen NEGATIVE, Crossmatch See Detail Charges/Coding Visit Charges Inpatient E&M: 26866 Init Hosp L3 Procedures Hospitalists Procedures: 17022 Advncd Care Plan 30 Min
--- NOTE | 2022-07-20 21:32 | EKG12_ITS ---
Test Reason : A FIB Blood Pressure : / mmHG Vent. Rate : 072 BPM Atrial Rate : 068 BPM P-R Int : 000 ms QRS Dur : 156 ms QT Int : 460 ms P-R-T Axes : 000 -74 099 degrees QTc Int : 503 ms Paced Rhythm Left axis deviation Non-specific intra-ventricular conduction block Abnormal ECG When compared with ECG of 09-MAY-2022 13:16, Wide QRS rhythm has replaced Electronic ventricular pacemaker Confirmed by DAVE ROOT, PIA ([id number]), city editor ARMOND DANIEL ([id number]) on 07/24/2022 1:52:28 PM Referred By: CLARISSA Confirmed By:PIA ACOSTA MD
--- NOTE | 2022-07-20 22:00 | RAD_ITS ---
EXAM: XR CHEST, 2 VIEWS CLINICAL INDICATION: COPD with mild bronchitis -- sob TECHNIQUE: Frontal and lateral views of the chest. COMPARISON: May 09, 2022. CT May 09, 2022 including the lung bases which showed mild cardiomegaly, mild interstitial edema, small effusions, calcified pleural plaques. FINDINGS: LUNGS AND PLEURAL SPACES: Mild blunting of the posterior costophrenic angles on the lateral view, consistent with slight pleural effusions. Stable mild elevation of the right hemidiaphragm. Stable mild central pulmonary vascular distention. Similar mildly thick linear band of vessel or atelectasis is seen in the left retrocardiac region. No pneumothorax. HEART: Similar mild cardiomegaly. Left subclavian pacemaker leads remain stable in position. MEDIASTINUM: Central airways and mediastinal contour are unremarkable. BONES/JOINTS: Mild decreased height of T12 similar to prior CT. SOFT TISSUES: Unremarkable. VASCULATURE: Similar contour of the aorta, slight peripheral calcification. RAD/Chest PA and Lateral IMPRESSION: Mild pulmonary vascular congestion and slight effusions. Similar to prior studies. Electronically Signed: Chayo Chirinos MD at 4:35 EDT ,
[2022-07-20 22:38] LABS: Bedside Glucose 192 mg/dL (74-106)
[2022-07-20 22:58] LABS: Platelet Count 169 K/mm3 (150-450); RET-HE 29.1 pg (30-35)
[2022-07-20] MEDS: Gabapentin 100 MG Capsule 200 MG PO (23:14)
[2022-07-20] MEDS: Acetaminophen 500 MG Tablet 1000 MG PO (23:14)
[2022-07-20] MEDS: MELATONIN 10 MG TABLET 5 MG PO (23:14)
[2022-07-20] MEDS: guaiFENesin 1,200 MG Tablet 1200 MG PO (23:15)
[2022-07-20 23:27] LABS: AST(SGOT) 31 U/L (15-37); Alanine Aminotransfer ALT/SGPT 42 U/L (13-56); Albumin, Serum 3.6 g/dL (3.2-5.0); Alkaline Phosphatase 83 U/L (45-117); Bilirubin, Direct 0.51 mg/dL (0.00-0.30); Ferritin 3279 ng/mL (8-252); Globulin 3.6 g/dL (2.2-4.2); Iron 153 ug/dL (50-170); Iron Binding Capacity,Total 180 ug/dL (250-450); Protein, Total 7.2 g/dL (6.4-8.2)
[2022-07-21] VITALS (16 sets, daily range): BP systolic 106–153; BP diastolic 45–95; PULSE 68–80; RESP 16–20; TEMP 36.1–36.8; O2SAT 95–100; BMI 29.2
[2022-07-21] MEDS: Levothyroxine 50 MCG Tablet PO (05:30)
[2022-07-21] MEDS: DiphenhydrAMINE 25 MG Capsule 50 MG PO (05:30)
[2022-07-21] MEDS: predniSONE 20 MG Tablet 50 MG PO (05:30)
[2022-07-21] MEDS: 0.9% Saline Lock 10 ML Syringe IV (06:24)
[2022-07-21 06:38] LABS: Absolute Lymphocyte Count 0.44 X10^3/uL (0.83-4.51); Absolute Neutrophil Count 3.9 X10^3/uL (2.0-7.7); Basophil# 0.03 X10^3/uL; Basophil% 0.7 % (0-1); Eosinophil# 0.02 X10^3/uL; Eosinophils% 0.4 % (0-5); Hemoglobin 6.5 g/dL (12.0-15.0); Lymphocyte # 0.44 X10^3/ul (0.83-4.51); Lymphocyte % 9.7 % (19-41); Mean Corp Hgb Conc 29.5 g/dL (32-36); Mean Corpuscular Hgb 30.7 pg (27.0-32.0); Mean Corpuscular Volume 103.8 fL (81-99); Mean Platelet Vol. 12.3 fl (6.2-12.0); Monocyte# 0.11 X10^3/uL; Monocyte% 2.4 % (0-10); NRBC Flagged by Analyzer 1.1 % (0-5); Neutrophil % 86.4 % (47-70); POSITIVE DIFFERENTIAL YES; POSITIVE MORPHOLOGY YES; Platelet Count 194 K/mm3 (150-450); RBC Distribution Width CV 29.9 % (11.6-14.6); Red Blood Count 2.12 M/mm3 (4.2-5.4); White Blood Count 4.5 K/mm3 (4.4-11.0)
[2022-07-21 06:41] LABS: Differential Indicated SCAN CRITERIA MET; RBC Distribution Width SD 107.1 fl (35.1-43.9)
[2022-07-21 06:43] LABS: Bedside Glucose 202 mg/dL (74-106)
[2022-07-21 06:47] LABS: International Normalized Ratio 3.4; Prothrombin Time (Protime)PT. 34.7 SECONDS (11.7-14.9)
[2022-07-21 07:18] LABS: Anion Gap 8 (5-15); BUN 40 mg/dL (7-18); BUN/Creat Ratio 16.9 RATIO (10-20); Calcium,Total 8.9 mg/dL (8.5-10.1); Chloride 103 mmol/L (98-107); Creatinine, Serum 2.36 mg/dL (0.55-1.02); EST Glomerular Filtration Rate 21 mL/min (>60); Est Glom Filt Rate - Afr Amer 25 mL/min (>60); Estimated Creatinine Clearance 18.26 ml/min; Glucose 212 mg/dL (74-106); Potassium 4.6 mmol/L (3.5-5.1); Sodium Level 137 mmol/L (136-145); Thyroid Stim Hormone (TSH) 0.35 uIU/mL (0.358-3.74)
[2022-07-21 07:41] LABS: Anisocytosis 1+; Platelet Estimate ADEQUATE (ADEQ)
[2022-07-21 07:42] LABS: Hypochromasia 1+; Macrocytosis 1+; Ovalocyte RARE; Poikilocytosis RARE
[2022-07-21] MEDS: Calcium Carbonate 500 MG Tablet PO (07:52)
[2022-07-21] MEDS: Amox/Clavulanate 500 MG Tablet PO ×2 (07:52→17:25)
[2022-07-21] MEDS: Loperamide 2 MG Capsule PO ×3 (07:52→17:25)
[2022-07-21] MEDS: Allopurinol 100 MG Tablet PO (07:52)
[2022-07-21] MEDS: Ensure Plus High Protein 120 ML LIQUID PO (07:56)
[2022-07-21 08:19] LABS: Vitamin B12 939 pg/mL (211-911)
[2022-07-21] MEDS: guaiFENesin 1,200 MG Tablet 1200 MG PO ×2 (09:37→23:37)
[2022-07-21] MEDS: Pantoprazole Sodium 40 MG Tablet PO (09:37)
[2022-07-21] MEDS: Furosemide 40 MG Tablet PO (09:37)
[2022-07-21] MEDS: Acetaminophen 500 MG Tablet 1000 MG PO ×2 (09:37→23:37)
[2022-07-21] MEDS: Gabapentin 100 MG Capsule 200 MG PO ×2 (09:37→23:44)
[2022-07-21] MEDS: Montelukast 10 MG Tablet PO (09:37)
[2022-07-21] MEDS: Calcitriol 0.25 MCG Capsule PO (09:37)
[2022-07-21] MEDS: Metoprolol(XL)Succ 25 MG Tablet PO (09:37)
--- NOTE | 2022-07-21 10:40 | CASEMGMT ---
Discharge Planning Patient resides at [facility]. VM left for JOHNNY Fraser ([phone]) to inquire about any barriers to her return. Elisabeth Fenton, Discharge Planning Asst.
--- NOTE | 2022-07-21 10:58 | PN.HOSP_ITS ---
Subjective Subjective Resting comfortably, no issues overnight. Continue with blood transfusions Objective Data Objective Data Vital Signs: Vital Signs Temp Pulse Resp BP Pulse Ox O2 Del Method O2 Flow Rate 97.2 F L 73 16 136/62 H 97 Nasal Cannula 3 07/21/22 10:28 07/21/22 10:28 07/21/22 10:28 07/21/22 10:28 07/21/22 10:28 07/21/22 10:28 07/21/22 10:28 Oxygen Flow Rate (L/min) 3 Oxygen Delivery Method Nasal Cannula Weight: 149 lb 0.52 oz Body Mass Index (BMI) 29.2 Intake & Output: Intake and Output for Last 24 Hours 07/20/22 07/21/22 07/22/22 03:59 03:59 03:59 Intake Total 400 / 400 Output Total 300 / 300 300 / 300 Balance -300 / -300 100 / 100 Lab / Micro Data Result Diagrams: 07/21/22 06:09 07/21/22 06:09 Labs: Laboratory Results - last 24 hr 07/20/22 17:30: WBC 6.7, RBC 2.14 L, Hgb 6.7 L, Hct 22.6 L, MCV 105.6 H, MCH 31.3, MCHC 29.6 L, RDW Std Deviation 110.9 H, RDW Coeff of Anjana 30.9 H, Plt Count 201, MPV 11.6, Immature Gran % (Auto) 0.400, Neut % (Auto) 68.0, Lymph % (Auto) 12.6 L, [place] % (Auto) 10.0, Eos % (Auto) 8.3 H, Baso % (Auto) 0.7, Absolute Neuts (auto) 4.6, Absolute Lymphs (auto) 0.85, Nucleated RBC % 0.6, Differential Comment SCANNED, Hypochromasia 1+, Anisocytosis 3+, Microcytosis 1+, Macrocytosis 2+ 07/20/22 17:30: Sodium 140, Potassium 4.0, Chloride 103, Carbon Dioxide 28.0, Anion Gap 9, BUN 35 H, Creatinine 2.26 H, Estim Creat Clear Calc 12.83, Est GFR (MDRD) Af Amer 26 L, Est GFR (MDRD) Non-Af 22 L, BUN/Creatinine Ratio 15.5, Gluc ose 161 H, Calcium 9.4 07/20/22 17:30: Blood Type A NEGATIVE, Antibody Screen NEGATIVE, Crossmatch See Detail 07/20/22 17:30: Retic Count 1.00, Immature Retic Fraction 37.10 H, Retic Hgb Equivalent 29.1 L 07/20/22 17:30: Iron 153, TIBC 180 L, Iron Saturation 85.0 H, Ferritin 3279 H, Total Bilirubin 1.10 H, Direct Bilirubin 0.51 H, AST 31, ALT 42, Alkaline P hosphatase 83, Total Protein 7.2, Albumin 3.6, Globulin 3.6, Folate 14.60 07/20/22 22:17: POC Glucose 192 H 07/21/22 06:09: WBC 4.5, RBC 2.12 L, Hgb 6.5 L, Hct 22.0 L, MCV 103.8 H, MCH 30.7, MCHC 29.5 L, RDW Std Deviation 107.1 H, RDW Coeff of Anjana 29.9 H, Plt Count 194, MPV 12.3 H, Immature Gran % (Auto) 0.400, Neut % (Auto) 86.4 H, Lymph % (Auto) 9.7 L, [place] % (Auto) 2.4, Eos % (Auto) 0.4, Baso % (Auto) 0.7, Absolute Neuts (auto) 3.9, Absolute Lymphs (auto) 0.44 L, Nucleated RBC % 1.1, Platelet Estimate ADEQUATE, Hypochromasia 1+, Poikilocytosis RARE, Anisocytosis 1+, Ma crocytosis 1+, Ovalocytes RARE 07/21/22 06:09: Sodium 137, Potassium 4.6, Chloride 103, Carbon Dioxide 26.0, Anion Gap 8, BUN 40 H, Creatinine 2.36 H, Estim Creat Clear Calc 18.26, Est GFR (MDRD) Af Amer 25 L, Est GFR (MDRD) Non-Af 21 L, BUN/Creatinine Ratio 16.9, Glucose 212 H, Calcium 8.9, TSH 0.35 L 07/21/22 06:09: Vitamin B12 939 H 07/21/22 06:09: PT 34.7 H, INR 3.4 07/21/22 06:22: POC Glucose 202 H Radiography Diagnostic Testing: Radiology Impression Chest X-Ray 07/20/22 22:00 IMPRESSION: Mild pulmonary vascular congestion and slight effusions. Similar to prior studies. Electronically Signed: Chayo Chirinos MD at 4:35 EDT , Physical Exam Narrative General: Alert, Oriented x3, Cooperative, No apparent distress HEENT: Atraumatic, PERRLA, EOMI, Normocephalic, pale Oral: Moist Mucosa Neck: Supple, No JVD Lungs: Diminished, Normal air movement, No rhonchi, No wheeze, No rales Cardiovascular: Regular rate, Regular Rhythm, Normal S1, Normal S2, No murmurs Abdomen: Soft, Non Tender, Non-Distended, No Hepato-splenomegaly Extremities: No edema, Capillary Refill Less than 3 Seconds Skin: No rashes, No breakdown Musculoskeletal: No Tenderness to Palpation of Joints or Extremities Neurological: Motor Exam 5/5 strength throughout, Sensory exam intact to light touch and pain Psych/Mental Status: Normal Affect, Appropriate Assessment & Plan Assessment/Plan (1) Anemia: (2) MDS (myelodysplastic syndrome): PLAN: Plan 1. Symptomatic anemia secondary to myelodysplastic syndrome ? She does have a history of getting multiple transfusions and she does have a transfusion reaction and requires pretreatment which she has received ? We will proceed with 2 units today and recheck her hemoglobin ? Given that this is a chronic issue as long as her anemia remained stable posttransfusion can likely discharge 2. Chronic diastolic CHF/A-fib status post pacemaker and ablation ? Echo in April 2022 with an EF of 65% and mild aortic stenosis ? Blood pressure stable continue with home medications ? We will hold Coumadin as her INR supratherapeutic 3. COPD without exacerbation/bronchitis ? Continue with Augmentin ? Continue with inhalers ? Continue with outpatient management 4. CKD 4 ? Appears to be close to baseline we will continue to monitor DVT: Supratherapeutic INR Charges/Coding Visit Charges Inpatient E&M: 83331 Subs Hosp L2
[2022-07-21] MEDS: Insulin Lispro 100 UNIT/ML INSULN.PEN SC (11:16)
--- NOTE | 2022-07-21 11:27 | CASEMGMT ---
Social Work SW met w/pt, confirmed that she is here from [facility]. Pt states she gets around with a walker. The staff help pt with medications, meals, cleaning. They stay in pt's room while she showers for safety. Pt states she has been there for two years. Pt has been to a half-way in the past, it was in [place]. Pt has had home health at [facility] in the past. Pt confirms daughter Dianne is her POA. SW spoke w/pt about plan from here, pt is not sure yet. SW explained we can see how therapy goes and then see what makes sense. Pt states understanding. Elisabeth d/leisa interstate planner, did reach out to [facility], waiting for a call back. SW will continue to follow. JULIA Hoffman
--- NOTE | 2022-07-21 11:41 | CASEMGMT ---
Discharge Planning SNF list created and given to SW. Elisabeth Fenton, Discharge Planning Asst.
[2022-07-21 12:12] LABS: Bedside Glucose 247 mg/dL (74-106)
--- NOTE | 2022-07-21 12:58 | CASEMGMT ---
Discharge Planning Elisabeth at [facility] returned call. She stated that as long as patient has no functional loss, she can return. Updates sent via fax ([phone]). Elisabeth requested an updated after therapy evals. Elisabeth was made aware that a weekend discharge is likely. SW notified of the above. Elisabeth Fenton, Discharge Planning Asst.
--- NOTE | 2022-07-21 14:24 | CASEMGMT ---
Social Work SW called daughter to check in w/her about the discharge plan. SW explained that if pt is moving well enough she will be able to return to her assisted living at discharge. SW explained that if pt is needing a lot of assist however, short term rehab may need to be considered. SW explained to daughter that pt has not had PT/OT yet, so we are not sure yet how pt is moving. SW offered to put a list of [facility]p facilities in the room for pt and daughter if she would want the information now. Daughter wants to see how it goes for pt with PT/OT first. She would like pt to get therapy at [facility] if she returns there. SW explained can ask the doctor to order this. SW will follow up w/pt and daughter tomorrow, and with [facility] also to see if pt can return when ready. Plan: TBD, return to [place] vs referral to SNF JULIA Hoffman
--- NOTE | 2022-07-21 14:43 | CHAPLAIN ---
Type of Pastoral Visit _x__ Initial Visit ___ Follow-up Visit ___ On-call Visit ___ General Patient Visit ___ Spiritual Assessment ___ Family Conference ___ Bereavement ___ Rapid Response ___ Code Blue ___ Other (describe below) Pastoral Care Referral From _x__ Patient ___ Family ___ Nurse ___ Physician ___ Agricultural Commodities Grader ___ Pot Room Supervisor ___ Other (describe below) Sacrament/Intervention _x__ Active listening ___ Anointing ___ Jehovah'S Witness ___ Bereavement ___ Communion ___ Mi exploration ___ ___ Life review _x__ Prayer ___ Reconciliation ___ Sacrament of Sick _x__ Supportive presence ___ Wedding ___ Other (describe below) Pastoral Comments patient is verbal about questions on why she had to be admitted; pt not sure about future outcomes and states I will just go on like I've done for many years; pt says that her AL has done a great job helping her manage; pt welcomes prayer but states that she has no other needs
[2022-07-21 16:25] LABS: Bedside Glucose 177 mg/dL (74-106)
[2022-07-21] MEDS: Glucerna Shake 120 ML LIQUID PO (17:25)
[2022-07-21] MEDS: Budesonide Respules 0.5 MG/2 ML AMPUL.NEB. INHALATION (19:12)
[2022-07-21] MEDS: MELATONIN 10 MG TABLET 5 MG PO (23:38)
[2022-07-22 00:15] LABS: Bedside Glucose 216 mg/dL (74-106)
[2022-07-22 02:19] VITALS: BMI 29.7
[2022-07-22 05:29] VITALS: BP 135/45; PULSE 76; RESP 18; TEMP 36.4; O2SAT 94
[2022-07-22] MEDS: Levothyroxine 50 MCG Tablet PO (05:36)
[2022-07-22 06:35] LABS: Bedside Glucose 129 mg/dL (74-106)
[2022-07-22 06:48] LABS: Absolute Lymphocyte Count 0.53 X10^3/uL (0.83-4.51); Absolute Neutrophil Count 4.9 X10^3/uL (2.0-7.7); Basophil# 0.01 X10^3/uL; Basophil% 0.2 % (0-1); Eosinophil# 0.07 X10^3/uL; Eosinophils% 1.1 % (0-5); Hematocrit 27.2 % (37-47); Hemoglobin 8.6 g/dL (12.0-15.0); Lymphocyte # 0.53 X10^3/ul (0.83-4.51); Lymphocyte % 8.5 % (19-41); Mean Corp Hgb Conc 31.6 g/dL (32-36); Mean Corpuscular Hgb 31.2 pg (27.0-32.0); Mean Corpuscular Volume 98.6 fL (81-99); Mean Platelet Vol. 11.6 fl (6.2-12.0); Monocyte# 0.63 X10^3/uL; Monocyte% 10.2 % (0-10); NRBC Flagged by Analyzer 0.6 % (0-5); Neutrophil # 4.94 X10^3/uL (2.7-7.7); Neutrophil % 79.7 % (47-70); POSITIVE DIFFERENTIAL YES; POSITIVE MORPHOLOGY YES; Platelet Count 171 K/mm3 (150-450); RBC Distribution Width CV 25.9 % (11.6-14.6); RBC Distribution Width SD 87.4 fl (35.1-43.9); Red Blood Count 2.76 M/mm3 (4.2-5.4); White Blood Count 6.2 K/mm3 (4.4-11.0)
[2022-07-22 07:00] LABS: Differential Indicated SCAN CRITERIA MET
[2022-07-22 07:10] LABS: International Normalized Ratio 2.6; Prothrombin Time (Protime)PT. 27.7 SECONDS (11.7-14.9)
[2022-07-22 07:21] LABS: Anion Gap 6 (5-15); BUN 49 mg/dL (7-18); BUN/Creat Ratio 27.2 RATIO (10-20); Calcium,Total 8.7 mg/dL (8.5-10.1); Chloride 106 mmol/L (98-107); EST Glomerular Filtration Rate 28 mL/min (>60); Est Glom Filt Rate - Afr Amer 34 mL/min (>60); Estimated Creatinine Clearance 24.37 ml/min; Glucose 135 mg/dL (74-106); Potassium 4.3 mmol/L (3.5-5.1); Sodium Level 138 mmol/L (136-145)
[2022-07-22] MEDS: Budesonide Respules 0.5 MG/2 ML AMPUL.NEB. INHALATION (07:26)
[2022-07-22 07:27] VITALS: PULSE 71; RESP 18; O2SAT 96
[2022-07-22 07:41] VITALS: PULSE 82
[2022-07-22] MEDS: Calcium Carbonate 500 MG Tablet PO (07:41)
[2022-07-22] MEDS: Metoprolol(XL)Succ 25 MG Tablet PO (07:41)
[2022-07-22] MEDS: guaiFENesin 1,200 MG Tablet 1200 MG PO (07:42)
[2022-07-22] MEDS: Amox/Clavulanate 500 MG Tablet PO (07:42)
[2022-07-22] MEDS: Loperamide 2 MG Capsule PO ×2 (07:42→12:00)
[2022-07-22] MEDS: Allopurinol 100 MG Tablet PO (07:42)
[2022-07-22] MEDS: Glucerna Shake 120 ML LIQUID PO ×2 (07:49→12:00)
[2022-07-22 07:57] VITALS: BP 143/62; PULSE 82; RESP 16; TEMP 36.5; O2SAT 96
--- NOTE | 2022-07-22 08:39 | CASEMGMT ---
Addendum entered by Bharati Riddle 07/22/22 10:25: Social Work SW received a call back from [facility], they can take pt whenever she is ready for discharge. SW let pt's RN know, also called daughter to let her know. Also as per RN, pt was asking about getting a portable oxygen concentrator. SW spoke w/daughter, advised her to follow up w/pt's oxygen provider([facility]) and the physician who prescribed the O2. Daughter states understanding. Daughter will likely drive pt back when she is ready to be discharged. Green sheet will be placed on chart. JULIA Hoffman Addendum entered by Bharati Riddle 07/22/22 09:12: Social Work SW called [facility] back, spoke again with nurse Tavarez. She said the phone had cut out. SW let her know therapy notes were sent over and asked her to review. She states she needs to pass the notes on and will have someone call SW back to let SW know if they can take pt back when she is medically ready. SW will continue to follow. JULIA Hoffman Original Note: Social Work SW called [facility], spoke with nurse Tavarez who set down phone and did not return to the phone. ROXANNE faxed over pt's PT/OT notes to [facility] for review, to see if pt would be able to return today. [facility] will call back to see if the notes have been reviewed and what their determination is. JULIA Hoffman
[2022-07-22 09:03] LABS: Anisocytosis 2+; Differential Comment SCANNED; Macrocytosis 1+; Microcytosis 1+
[2022-07-22] MEDS: Gabapentin 100 MG Capsule 200 MG PO (10:03)
[2022-07-22] MEDS: Acetaminophen 500 MG Tablet 1000 MG PO (10:03)
[2022-07-22] MEDS: Pantoprazole Sodium 40 MG Tablet PO (10:03)
[2022-07-22] MEDS: Montelukast 10 MG Tablet PO (10:03)
[2022-07-22] MEDS: Calcitriol 0.25 MCG Capsule PO (10:03)
[2022-07-22 10:35] VITALS: O2SAT 94
[2022-07-22 11:13] VITALS: BP 121/51; PULSE 83; RESP 16; TEMP 36.4; O2SAT 95
[2022-07-22 11:23] LABS: Bedside Glucose 207 mg/dL (74-106)
[2022-07-22 11:58] LABS: Hemoglobin 8.8 g/dL (12.0-15.0)
--- NOTE | 2022-07-22 13:10 | DCINST_ITS ---
Discharge Instructions Diet Discharge Diet: Low fat / Low cholesterol Activity Discharge Activity: Return to Normal Activity Dressing / Incision Call your doctor if you observe: Fever of 101 or Higher, Shortness of breath, Dizziness, Fainting spells, Swelling in the ankles, Chest pain and Increased palpitations (irregular heartbeat) Follow Up Care Test Results: Test results from this visit will be discussed in further detail at your follow- up appointment, if applicable. Discharge Plan Admission Admit Date/Time: 07/20/22 18:14 Attending Provider: Jhony De Anda Primary Care Provider: Trace Larry Consulting Providers: Philip Mckeon Instructions Additional Instructions / Restrictions: Maintain follow-up with hematology to monitor your hemoglobin. Discharge Orders/Prescriptions Prescriptions: Continued calcium carbonate [Tums Ultra] 400 mg calcium (1,000 mg) Tablet,Chewable 400 mg PO DAILY warfarin 5 mg Tablet 5 mg PO DAILY montelukast [Singulair] 10 mg Tablet 10 mg PO DAILY ergocalciferol (vitamin D2) 1,250 mcg (50,000 unit) Capsule 1,250 mcg PO UD furosemide 40 mg Tablet 40 mg PO MOTUWETHFR Rx Instructions: EVERY Sunday, SUNDAY, SUNDAY, AND SUNDAY metoprolol succinate 25 mg Tablet Extended Release 24 Hr 25 mg PO DAILY loperamide 2 mg Tablet 2 mg PO TIDCM allopurinol 100 mg Tablet 100 mg PO DAILY calcitriol 0.25 mcg Capsule 0.25 mcg PO DAILY acetaminophen 500 mg Tablet 1,000 mg PO BID guaifenesin 100 mg/5 mL Liquid 400 mg PO Q4H PRN (Reason: Congestion) gabapentin 100 mg Capsule 200 mg PO BID [place] Saline Gel [place],Non-Aerosol 1 spray INTRANASAL DAILY PRN (Reason: DRY NOSE) melatonin 5 mg Tablet 5 mg PO QHS albuterol sulfate 90 mcg/actuation Aero Powdr Breath Act W/Sensor 2 inh INHALATION Q6H levothyroxine 50 mcg Tablet 50 mcg PO DAILY pantoprazole 40 mg Tablet,Delayed Release (Dr/Ec) 40 mg PO DAILY amoxicillin-pot clavulanate 500-125 mg tablet 1 tab PO Q12H lenalidomide [Revlimid] 2.5 mg Capsule 2.5 mg PO DAILY Rx Instructions: swallow whole with glass of water; do not open, crush, chew , break, or dissolve Other Ambulatory Orders: Occupational Therapy Eval (Routine) Location: None Selected Ordered By: Dr. Jhony De Anda Physical Therapy Evaluation (Routine) Location: None Selected Ordered By: Dr. Jhony De Anda Referrals / Follow Up: Trace Larry DO [Primary Care Provider] - Within 1 Week Disposition Disposition (needs filled in before D/C Order can be placed): Assisted Living
--- NOTE | 2022-07-22 13:18 | PCM.DC.SUM ---
Providers Date of Admission: 07/20/22 Primary Care Physician: Dr. Trace Larry DO Reason For Visit: MDS WITH SEVERE ANEMIA Diagnosis Discharge Diagnosis (1) Anemia: Status: Acute Code(s): D64.9 - Anemia, unspecified (2) MDS (myelodysplastic syndrome): Status: Acute Code(s): D46.9 - Myelodysplastic syndrome, unspecified Medications at Discharge Home Medications calcium carbonate 400 mg calcium (1,000 mg) chewable tablet (Tums Ultra) 400 mg PO DAILY 12/07/20 ergocalciferol (vitamin D2) 1,250 mcg (50,000 unit) capsule 1,250 mcg PO UD 12/07/20 montelukast 10 mg tablet (Singulair) 10 mg PO DAILY 12/07/20 warfarin 5 mg tablet 5 mg PO DAILY 12/07/20 allopurinol 100 mg tablet 100 mg PO DAILY 06/28/21 calcitriol 0.25 mcg capsule 0.25 mcg PO DAILY 06/28/21 furosemide 40 mg tablet 40 mg PO MOTUWETHFR 06/28/21 loperamide 2 mg tablet 2 mg PO TIDCM CHRONIC DIARRHEA 06/28/21 metoprolol succinate 25 mg tablet,extended release 24 hr 25 mg PO DAILY HEART 06/28/21 acetaminophen 500 mg tablet 1,000 mg PO BID PAIN 05/09/22 albuterol sulfate 90 mcg/actuation breath activated powder inhaler,sensor 2 inh inhalation Q6H COPD 05/09/22 gabapentin 100 mg capsule 200 mg PO BID FOOT PAIN 05/09/22 guaifenesin 100 mg/5 mL oral liquid 400 mg PO Q4H PRN Congestion 05/09/22 levothyroxine 50 mcg tablet 50 mcg PO DAILY THYROID 05/09/22 melatonin 5 mg tablet 5 mg PO QHS SLEEP 05/09/22 pantoprazole 40 mg tablet,delayed release 40 mg PO DAILY GERD 05/09/22 sodium chloride-aloe vera nasal spray ([place] Saline Gel nasal spray) 1 spray intranasal DAILY PRN DRY NOSE 05/09/22 amoxicillin 500 mg-potassium clavulanate 125 mg tablet 1 tab PO Q12H UPPER RESPIRATORY 07/20/22 lenalidomide 2.5 mg capsule (Revlimid) 2.5 mg PO DAILY . 07/20/22 Hospital Course Operations None Procedures Blood transfusion Summary of Care Provided Minutes Spent on Discharge: 33 Hospital Course: Per HPI: APRIL BATRES, is a 86 F with history of MDS being followed by Dr. Henning was sent to ED after blood work shows hemoglobin 6.5 g.? Patient lives in assisted living [facility] where she had blood work today which shows H&H 6.5/20.4.? WBC 5.3 thousand.? Platelet count 1 84,000.? Magnesium 1.8.? BUNs/creatinine 32/1.86.? Calcium 9.1.? Bicarb 32. Patient is states that for last 1 week she is feeling short of breath on walking to level floor.? She uses a walker for mobilization.? She does not climb stairs.? On walking she feels dizzy lightheaded but she did not pass out.? She had extreme fatigue for about 1 week.? Denies external loss of blood including hematemesis melena hematochezia, hemoptysis or hematuria.? History of A-fib on warfarin. She also has history of COPD and had mild URI symptoms and was started on Augmentin as an outpatient.? She denies fever.? Mild chronic COPD with cough. She has history of recurrent PRBC transfusion with requirement anywhere between 3 to 6 weeks. In ED, vitals in normal limit.? She is not dyspneic at rest.? Respiratory rate 18.? Pulse ox 93% on 2 L of oxygen.? Lab work done in ED and reviewed. Hospital Course: 1. Symptomatic anemia secondary to myelodysplastic syndrome?86-year-old female with myelodysplastic syndrome who has had fairly frequent transfusions presents to the hospital with symptomatic anemia. She did well after the 2 units of blood and her hemoglobin is stable today and went up from this morning to 8.8. She states that she is never had a normal hemoglobin. She is feeling much better today and would like to go back to the assisted living. She was evaluated by physical therapy here in the hospital and she would benefit from outpatient physical therapy and Occupational Therapy which was ordered. I do recommend outpatient monitoring of her anemia as well as her INR. I discussed with her the plan for discharge today she expressed understanding of the risk benefits going home and will like to go home today. 2. COPD without exacerbation and current bronchitis?doing well, she is on her baseline oxygen requirements. I do recommend completion of her Augmentin as well as continuation with her baseline medications for her COPD. 3. Chronic diastolic CHF, A-fib status post pacemaker and ablation, CKD 4 are all chronic medical conditions which complicate her care. Her home medications were continued where appropriate Physical Exam Narrative General: Alert, Oriented x3, Cooperative, No apparent distress HEENT: Atraumatic, PERRLA, EOMI, Normocephalic, pale Oral: Moist Mucosa Neck: Supple, No JVD Lungs: Diminished, Normal air movement, No rhonchi, No wheeze, No rales Cardiovascular: Regular rate, Regular Rhythm, Normal S1, Normal S2, No murmurs Abdomen: Soft, Non Tender, Non-Distended, No Hepato-splenomegaly Extremities: No edema, Capillary Refill Less than 3 Seconds Skin: No rashes, No breakdown Musculoskeletal: No Tenderness to Palpation of Joints or Extremities Neurological: Motor Exam 5/5 strength throughout, Sensory exam intact to light touch and pain Psych/Mental Status: Normal Affect, Appropriate Weight / BMI Weight Weight: 151 lb 10.848 oz Body Mass Index (BMI) 29.7 ABG / Lab / Microbiology Data Result Diagrams: 07/22/22 11:51 07/22/22 06:00 Laboratory: Laboratory Results - last 24 hr 07/21/22 16:07: POC Glucose 177 H 07/21/22 23:33: POC Glucose 216 H 07/22/22 06:00: PT 27.7 H, INR 2.6 07/22/22 06:00: WBC 6.2, RBC 2.76 L, Hgb 8.6 L, Hct 27.2 L, MCV 98.6 D, MCH 31.2, MCHC 31.6 L D, RDW Std Deviation 87.4 H, RDW Coeff of Anjana 25.9 H, Plt Count 171, MPV 11.6, Immature Gran % (Auto) 0.300, Neut % (Auto) 79.7 H, Lymph % (Auto) 8.5 L, [place] % (Auto) 10.2 H, Eos % (Auto) 1.1, Baso % (Auto) 0.2, Absolute Neuts (auto) 4.9, Absolute Lymphs (auto) 0.53 L, Nucleated RBC % 0.6, Differential Comment SCANNED, Anisocytosis 2+, Microcytosis 1+, Macrocytosis 1+ 07/22/22 06:00: Sodium 138, Potassium 4.3, Chloride 106, Carbon Dioxide 26.0, Anion Gap 6, BUN 49 H, Creatinine 1.80 H, Estim Creat Clear Calc 24.37, Est GFR (MDRD) Af Amer 34 L, Est GFR (MDRD) Non-Af 28 L, BUN/Creatinine Ratio 27.2 H, Glucose 135 H, Calcium 8.7 07/22/22 06:17: POC Glucose 129 H 07/22/22 11:02: POC Glucose 207 H 07/22/22 11:51: Hgb 8.8 L, Hct 29.0 L D/C Instructions Discharge Diet: Low fat / Low cholesterol Call your doctor if you observe: Fever of 101 or Higher, Shortness of breath, Dizziness, Fainting spells, Swelling in the ankles, Chest pain and Increased palpitations (irregular heartbeat) Meaningful Use Info Meaningful Use Diagnoses (Choose all that apply): None applicable Discharge Plan Admission Admit Date/Time: 07/20/22 18:14 Attending Provider: Jhony De Anda Primary Care Provider: Trace Larry Consulting Providers: Philip Mckeon Instructions Additional Instructions / Restrictions: Maintain follow-up with hematology to monitor your hemoglobin. Discharge Orders/Prescriptions Prescriptions: Continued calcium carbonate [Tums Ultra] 400 mg calcium (1,000 mg) Tablet,Chewable 400 mg PO DAILY warfarin 5 mg Tablet 5 mg PO DAILY montelukast [Singulair] 10 mg Tablet 10 mg PO DAILY ergocalciferol (vitamin D2) 1,250 mcg (50,000 unit) Capsule 1,250 mcg PO UD furosemide 40 mg Tablet 40 mg PO MOTUWETHFR Rx Instructions: EVERY Sunday, SUNDAY, SUNDAY, AND SUNDAY metoprolol succinate 25 mg Tablet Extended Release 24 Hr 25 mg PO DAILY loperamide 2 mg Tablet 2 mg PO TIDCM allopurinol 100 mg Tablet 100 mg PO DAILY calcitriol 0.25 mcg Capsule 0.25 mcg PO DAILY acetaminophen 500 mg Tablet 1,000 mg PO BID guaifenesin 100 mg/5 mL Liquid 400 mg PO Q4H PRN (Reason: Congestion) gabapentin 100 mg Capsule 200 mg PO BID [place] Saline Gel [place],Non-Aerosol 1 spray INTRANASAL DAILY PRN (Reason: DRY NOSE) melatonin 5 mg Tablet 5 mg PO QHS albuterol sulfate 90 mcg/actuation Aero Powdr Breath Act W/Sensor 2 inh INHALATION Q6H levothyroxine 50 mcg Tablet 50 mcg PO DAILY pantoprazole 40 mg Tablet,Delayed Release (Dr/Ec) 40 mg PO DAILY amoxicillin-pot clavulanate 500-125 mg tablet 1 tab PO Q12H lenalidomide [Revlimid] 2.5 mg Capsule 2.5 mg PO DAILY Rx Instructions: swallow whole with glass of water; do not open, crush, chew , break, or dissolve Other Ambulatory Orders: Occupational Therapy Eval (Routine) Location: None Selected Ordered By: Dr. Jhony De Anda Physical Therapy Evaluation (Routine) Location: None Selected Ordered By: Dr. Jhony De Anda Referrals / Follow Up: Trace Larry DO [Primary Care Provider] - Within 1 Week Disposition Disposition (needs filled in before D/C Order can be placed): Assisted Living Charges/Coding Visit Charges Inpatient E&M: 91343 Disch Hosp >30min
== END 2022-07-22 14:17 | disposition home or self-care (01) | DRG 812 ==
LOC: ED 18:17 → MS3 18:35
PROVIDERS: Admitting Provider Internal Medicine; Emergency Provider Emergency Medicine; PCP Student in an Organized Health Care Education/Training Program; Visit Provider Family Medicine
DX: D46.20 Refractory anemia with excess of blasts, unspecified (principal); J44.0 Chronic obstructive pulmonary disease with (acute) lower respiratory infection; I50.32 Chronic diastolic (congestive) heart failure; N18.4 Chronic kidney disease, stage 4 (severe); E11.22 Type 2 diabetes mellitus with diabetic chronic kidney disease; I48.91 Unspecified atrial fibrillation; E03.9 Hypothyroidism, unspecified; J20.9 Acute bronchitis, unspecified; Z95.0 Presence of cardiac pacemaker; Z79.01 Long term (current) use of anticoagulants; Z79.899 Other long term (current) drug therapy
CPT/HCPCS: 36415; 71046; 80048; 80076; 82607; 82728; 82746; 82962; 83540; 83550; 84443; 85014; 85018; 85025; 85045; 85610; 86850; 86900; 86901; 86920; 86922; 93005; 94640; 94668; 97110; 97162; 97166; 97530; 97535; 97802; 99284; J7040; P9016; A4216

== ENCOUNTER 2022-08-01 09:06 | Outpatient (CLI) | payer MEDICARE, OTHER, SELFPAY ==
[2022-08-01] MEDS: Acetaminophen 500 MG Tablet 1000 MG PO (09:24)
[2022-08-01] MEDS: 0.9% NaCl Peripheral Flush Adult/Peds IV (09:27)
[2022-08-01 09:39] VITALS: BP 124/59; PULSE 79; RESP 16; TEMP 36.6; O2SAT 97; BMI 27.3
[2022-08-01 10:10] VITALS: BP 121/51; PULSE 77; RESP 16; TEMP 36.5; O2SAT 99
[2022-08-01 11:10] VITALS: BP 141/61; PULSE 74; RESP 16; TEMP 36.2
== END 2022-08-01 09:07 | disposition home or self-care (01) ==
LOC: MEDOUTP 09:06
PROVIDERS: PCP Student in an Organized Health Care Education/Training Program; Referring Provider Internal Medicine Hematology & Oncology; Visit Provider Internal Medicine Hematology & Oncology
DX: D46.20 Refractory anemia with excess of blasts, unspecified (principal)
CPT/HCPCS: 36430; 86850; 86900; 86901; 86920; 86922; J7040; P9016; A4216

== ENCOUNTER 2022-08-11 08:00 | Outpatient (CLI) | payer MEDICARE, OTHER, SELFPAY ==
[2022-08-11 08:16] VITALS: BP 128/40; PULSE 74; RESP 16; TEMP 36.3; O2SAT 100; BMI 27.1
[2022-08-11 09:00] VITALS: BP 128/57; PULSE 74; RESP 16; TEMP 36.3; O2SAT 99
[2022-08-11 10:00] VITALS: BP 115/87; PULSE 75; RESP 16; TEMP 36.2; O2SAT 100
[2022-08-11] MEDS: 0.9% NaCl Peripheral Flush Adult/Peds IV (10:31)
[2022-08-11 11:08] VITALS: BP 135/52; PULSE 75; RESP 16; TEMP 35.9; O2SAT 97
[2022-08-11 12:08] VITALS: BP 133/65; PULSE 73; RESP 16; TEMP 35.9; O2SAT 99
[2022-08-11 13:13] VITALS: BP 132/68; PULSE 74; RESP 16; TEMP 36.1; O2SAT 100
== END 2022-08-11 08:01 | disposition home or self-care (01) ==
LOC: MEDOUTP 08:00
PROVIDERS: PCP Student in an Organized Health Care Education/Training Program; Referring Provider Internal Medicine Hematology & Oncology; Visit Provider Internal Medicine Hematology & Oncology
DX: D46.20 Refractory anemia with excess of blasts, unspecified (principal)
CPT/HCPCS: 36430; 86850; 86900; 86901; 86920; 86922; J7040; P9016; A4216

== ENCOUNTER 2022-08-22 08:52 | Outpatient (CLI) | payer MEDICARE, OTHER, SELFPAY ==
[2022-08-22] MEDS: Acetaminophen 500 MG Tablet 1000 MG PO (09:07)
[2022-08-22] MEDS: 0.9% NaCl Peripheral Flush Adult/Peds IV (09:08)
[2022-08-22 09:09] VITALS: BP 117/42; PULSE 80; RESP 16; TEMP 36.1; O2SAT 95
[2022-08-22 09:59] VITALS: BP 121/45; PULSE 75; RESP 16; TEMP 35.8
[2022-08-22 10:59] VITALS: BP 140/57; PULSE 76; RESP 16; TEMP 35.6; O2SAT 98
[2022-08-22 12:32] VITALS: BP 151/55; PULSE 76; RESP 16; TEMP 36.2; O2SAT 97
[2022-08-22 13:26] VITALS: BP 137/80; PULSE 78; RESP 16; TEMP 36.2; O2SAT 98
[2022-08-22 13:32] VITALS: BP 152/59; PULSE 78; RESP 18; TEMP 36.2; O2SAT 95
== END 2022-08-22 08:53 | disposition home or self-care (01) ==
LOC: MEDOUTP 08:52
PROVIDERS: PCP Student in an Organized Health Care Education/Training Program; Referring Provider Internal Medicine Hematology & Oncology; Visit Provider Internal Medicine Hematology & Oncology
DX: D46.20 Refractory anemia with excess of blasts, unspecified (principal)
CPT/HCPCS: 36430; 86850; 86900; 86901; 86920; 86921; 86922; J7040; P9016; A4216

== ENCOUNTER 2022-09-05 09:16 | Outpatient (CLI) | payer MEDICARE, OTHER, SELFPAY ==
[2022-09-05] VITALS (7 sets, daily range): BP systolic 119–153; BP diastolic 53–85; PULSE 72–78; RESP 16; TEMP 35.9–36.3; O2SAT 94–98; BMI 26.9
[2022-09-05] MEDS: 0.9% NaCl Peripheral Flush Adult/Peds IV (09:52)
[2022-09-05] MEDS: Acetaminophen 500 MG Tablet 1000 MG PO (09:52)
== END 2022-09-05 09:17 | disposition home or self-care (01) ==
LOC: MEDOUTP 09:17
PROVIDERS: PCP Student in an Organized Health Care Education/Training Program; Visit Provider Internal Medicine Hematology & Oncology
DX: D46.20 Refractory anemia with excess of blasts, unspecified (principal)
CPT/HCPCS: 36430; 86850; 86900; 86901; 86920; 86922; J7040; P9016; A4216

== ENCOUNTER 2022-09-19 09:03 | Outpatient (CLI) | payer MEDICARE, OTHER, SELFPAY ==
[2022-09-19 09:17] VITALS: BP 112/68; PULSE 77; RESP 18; TEMP 36.1; O2SAT 99; BMI 27.5
[2022-09-19] MEDS: 0.9% NaCl Peripheral Flush Adult/Peds IV (09:22)
[2022-09-19 09:42] VITALS: BP 99/30; PULSE 75; RESP 16; TEMP 36.2; O2SAT 96
[2022-09-19 10:42] VITALS: BP 123/65; PULSE 73; RESP 16; TEMP 36.3; O2SAT 99
[2022-09-19 11:29] VITALS: BP 141/51; PULSE 75; RESP 16; TEMP 35.8; O2SAT 100
[2022-09-19 12:26] VITALS: BP 120/40; PULSE 78; RESP 16; TEMP 36.3
[2022-09-19 13:55] VITALS: BP 101/48; PULSE 73; RESP 16; TEMP 35.9; O2SAT 96
== END 2022-09-19 09:04 | disposition home or self-care (01) ==
LOC: MEDOUTP 09:03
PROVIDERS: PCP Student in an Organized Health Care Education/Training Program; Referring Provider Internal Medicine Hematology & Oncology; Visit Provider Internal Medicine Hematology & Oncology
DX: D46.20 Refractory anemia with excess of blasts, unspecified (principal)
CPT/HCPCS: 36430; 86850; 86900; 86901; 86920; 86922; J7040; P9016; A4216

== ENCOUNTER 2022-09-25 11:02 | Emergency (ER) | payer MEDICARE, OTHER, SELFPAY ==
[2022-09-25 11:04] VITALS: BP 138/63; PULSE 89; RESP 32; TEMP 36.6; O2SAT 85; BMI 28.5
[2022-09-25 11:08] VITALS: PULSE 88; RESP 26; O2SAT 96
[2022-09-25 11:09] VITALS: O2SAT 95
--- NOTE | 2022-09-25 11:10 | EKG12_ITS ---
Test Reason : SOB Blood Pressure : / mmHG Vent. Rate : 086 BPM Atrial Rate : 220 BPM P-R Int : 000 ms QRS Dur : 156 ms QT Int : 420 ms P-R-T Axes : 000 -68 090 degrees QTc Int : 502 ms Ventricular-paced rhythm Abnormal ECG Confirmed by JCAQUE CROSS ([id number]), editorial specialist LENORE VERGARA ([id number]) on 09/30/2022 9:28:27 AM Referred By: ROHITH/MARCELLUS Confirmed By:JACQUE CROSS
--- NOTE | 2022-09-25 11:11 | ED.VIS.DYS ---
HPI History of Present Illness Chief Complaint: Shortness of Breath Informant: patient and family Onset/Context/Timing Onset: Days Context: gradual Narrative Narrative: Patient presents with increasing shortness of breath and not feeling well over the past week. She has a history of CHF and feels that her legs and feet are more swollen than normal. She had a 3 pound weight gain in the past week with a 5 pound weight gain recently. She is normally on 3 L of oxygen. Reportedly in triage her sat was 85% on 4 L nasal cannula. At the time of my exam she is 96% on 4 L nasal cannula. She has chronic cough that she states is unchanged. She denies chest pain. She denies fever or chills. She does take Lasix Sunday through Sunday. She presents here on a Sunday for evaluation so she has not had her Lasix the last 2 days. [facility] Medical History Afib Anemia CHF (congestive heart failure) CKD (chronic kidney disease) COPD (chronic obstructive pulmonary disease) Diabetes Hypothyroid MDS (myelodysplastic syndrome), low grade Myelodysplastic syndrome Pacemaker Home Medications calcium carbonate 400 mg calcium (1,000 mg) chewable tablet (Tums Ultra) 400 mg PO DAILY 12/07/20 [History Last Taken Unknown] ergocalciferol (vitamin D2) 1,250 mcg (50,000 unit) capsule 1,250 mcg PO UD 12/07/20 [History Last Taken 07/09/22] montelukast 10 mg tablet (Singulair) 10 mg PO DAILY 12/07/20 [History Last Taken 07/19/22] warfarin 5 mg tablet 5 mg PO DAILY 12/07/20 [History Last Taken 07/19/22] allopurinol 100 mg tablet 100 mg PO DAILY 06/28/21 [History Last Taken 07/20/22] calcitriol 0.25 mcg capsule 0.25 mcg PO DAILY 06/28/21 [History Last Taken 07/20/22] furosemide 40 mg tablet 40 mg PO MOTUWETHFR 06/28/21 [History Last Taken 07/20/22] loperamide 2 mg tablet 2 mg PO TIDCM CHRONIC DIARRHEA 06/28/21 [History Last Taken 07/20/22] metoprolol succinate 25 mg tablet,extended release 24 hr 25 mg PO DAILY HEART 06/28/21 [History Last Taken 05/08/22] acetaminophen 500 mg tablet 1,000 mg PO BID PAIN 05/09/22 [History Last Taken 07/20/22] albuterol sulfate 90 mcg/actuation breath activated powder inhaler,sensor 2 inh inhalation Q6H COPD 05/09/22 [History Last Taken 07/20/22] gabapentin 100 mg capsule 200 mg PO BID FOOT PAIN 05/09/22 [History Last Taken 07/20/22] guaifenesin 100 mg/5 mL oral liquid 400 mg PO Q4H PRN Congestion 05/09/22 [History Last Taken 07/20/22] levothyroxine 50 mcg tablet 50 mcg PO DAILY THYROID 05/09/22 [History Last Taken 07/20/22] melatonin 5 mg tablet 5 mg PO QHS SLEEP 05/09/22 [History Last Taken 07/19/22] pantoprazole 40 mg tablet,delayed release 40 mg PO DAILY GERD 05/09/22 [History Last Taken 07/20/22] sodium chloride-aloe vera nasal spray ([place] Saline Gel nasal spray) 1 spray intranasal DAILY PRN DRY NOSE 05/09/22 [History Last Taken 05/08/22] amoxicillin 500 mg-potassium clavulanate 125 mg tablet 1 tab PO Q12H UPPER RESPIRATORY 07/20/22 [History Last Taken 07/20/22] lenalidomide 2.5 mg capsule (Revlimid) 2.5 mg PO DAILY . 07/20/22 [History Last Taken 07/20/22] Allergy/AdvReac Type Severity Reaction Status Date / Time digoxin Allergy PT UNSURE Verified 09/25/22 11:09 OF REACTION Family History Other Heart disease Social History housing: assisted living facility Smoking Status: Never smoker alcohol intake: never substance use type: does not use ROS ROS ED Constitutional Constitutional ED: Denies chills or fever(s) Eyes Eyes: Denies change in vision ENT ENT ED: Denies rhinorrhea or sore throat Cardiovascular Cardiovascular: Denies chest pain or palpitations Respiratory/Chest Respiratory/Chest: Reports cough and dyspnea Gastrointestinal Gastrointestinal: Denies abdominal pain, diarrhea, nausea or vomiting Genitourinary Genitourinary ED: Denies dysuria Musculoskeletal Musculoskeletal: Reports other Details: Lower extremity edema ; Denies back pain or extremity pain Integumentary Denies Abrasions or rash Neurologic Neurologic: Denies headache(s) or weakness Psychiatric Psychiatric: Denies anxiety or depression Allergic/Immunologic Allergic/Immunologic ED: Denies lip swelling or urticaria EXAM Physical Exam Const Vital Signs: 09/25/22 11:04 09/25/22 11:08 09/25/22 11:09 Temperature 97.9 F Temperature Source Temporal Pulse Rate 89 88 Respiratory Rate 32 H 26 H Respiratory Effort Short of Breath Accessory Muscle Use Respiratory Depth Normal Respiratory Pattern Normal Blood Pressure 138/63 H Blood Pressure Mean 88 Pulse Ox 85 96 Oxygen Delivery Method Nasal Cannula Nasal Cannula Nasal Cannula Oxygen Flow Rate (L/min) 4 4 Positive well nourished and well developed General Appearance ED: well developed HEENT Reports moist mucous membranes Eyes EOMs intact bilaterally Resp Resp Narrative: Mild tachypnea. Diminished breath sounds bilateral bases. Cardio regular rate and regular rhythm Heart Sounds: murmur GI non-tender and non-distended Extremity Extremity Narrative: 3+ bilateral lower extremity edema. Neuro oriented x3 and no sensory deficits noted Psych mental status grossly normal Skin no wounds MDM MDM MDM Narrative Medical decision making narrative: Patient placed on radiographer cardiac catheterization. EKG obtained to evaluate for cardiac arrhythmia/ischemia. Chest x-ray obtained to evaluate for acute lung pathology, cardiac size, or mediastinal abnormality. Labwork obtained to evaluate for leukocytosis, anemia, and electrolyte derangement. History & Record Review Discussion w/independent historian: Patient and Family Additional record(s) reviewed:: Prior ED visit and Prior labs Lab Data Attestation: I reviewed the patient's lab results. Labs: Laboratory Results - last 24 hr 09/25/22 11:20 WBC 3.3 L RBC 2.76 L Hgb 7.9 L Hct 26.1 L MCV 94.6 MCH 28.6 MCHC 30.3 L RDW Std Deviation 66.4 H RDW Coeff of Anjana 20.9 H Plt Count 108 L MPV 11.0 Immature Gran % (Auto) 0.300 Neut % (Auto) 54.0 Lymph % (Auto) 19.5 [place] % (Auto) 20.1 H Eos % (Auto) 4.6 Baso % (Auto) 1.5 H Absolute Neuts (auto) 1.8 L Absolute Lymphs (auto) 0.64 L Nucleated RBC % 0 Anisocytosis 2+ PT 24.3 H INR 2.2 Sodium 139 Potassium 4.3 Chloride 104 Carbon Dioxide 31.0 Anion Gap 4 L BUN 36 H Creatinine 1.62 H Estim Creat Clear Calc 17.91 Est GFR (MDRD) Af Amer 39 L Est GFR (MDRD) Non-Af 32 L BUN/Creatinine Ratio 22.2 H Glucose 161 H Calcium 9.5 Troponin I High Sens 37 B-Natriuretic Peptide 613.1 H Radiography Chest X-Ray - ED: 1 View, Read by ED Physician and CHF Diagnostic Testing: Clinical Impression(s) from Imaging Studies Chest X-Ray 09/25/22 11:25 IMPRESSION: CHF. Electronically Signed: Shiva Reynolds MD at 11:45 EDT , EKG Initial EKG: Attestation: I personally reviewed and interpreted this EKG as follows: Interpretation: - (Paced rhythm at 86 bpm. No acute ischemia.) Treatment and Re-Evaluation :: CBC reveals pancytopenia. Her white count is 3.3, hemoglobin 7.9, and platelet count is 108. Patient does have a history of myelodysplastic syndrome. INR is therapeutic at 2.2. Chemistry studies reveal a BUN of 36 and a creatinine of 1.62, which is actually slightly improved when compared to our prior labs. Glucose is 161. Her troponin is normal at 37 with a BNP of 613. I do not have any prior BNP values to compare to. Patient's chest x-ray per my interpretation does reveal CHF. Radiology interpretation is reviewed and agrees. EKG is paced with no sign of ischemia. At this time patient is maintaining sats in the mid 90s on 2-1/2 to 3 L nasal cannula. She does not want to stay in the hospital. She has not been on her Lasix the last 2 days as he normally do not give it to her on the weekends. I recommend increasing her Lasix to 40 mg twice daily for the next 2 days, then back to once daily to get rid of the excess of fluid that she is holding. She feels that she is able to get around okay and get to the bathroom. I did advise her that she could increase her nasal cannula while she is up and moving. Return instructions are provided. Discharge Plan Triage Chief Complaint: Shortness of Breath ED Provider: Edilma Mendez Dx/Rx/DC Orders Clinical Impression: CHF (congestive heart failure) Instructions: ED Heart Failure, Congestive (CHF) Prescriptions: No Action calcium carbonate [Tums Ultra] 400 mg calcium (1,000 mg) Tablet,Chewable 400 mg PO DAILY warfarin 5 mg Tablet 5 mg PO DAILY montelukast [Singulair] 10 mg Tablet 10 mg PO DAILY ergocalciferol (vitamin D2) 1,250 mcg (50,000 unit) Capsule 1,250 mcg PO UD furosemide 40 mg Tablet 40 mg PO MOTUWETHFR Rx Instructions: EVERY Sunday, SUNDAY, SUNDAY, AND SUNDAY metoprolol succinate 25 mg Tablet Extended Release 24 Hr 25 mg PO DAILY loperamide 2 mg Tablet 2 mg PO TIDCM allopurinol 100 mg Tablet 100 mg PO DAILY calcitriol 0.25 mcg Capsule 0.25 mcg PO DAILY acetaminophen 500 mg Tablet 1,000 mg PO BID guaifenesin 100 mg/5 mL Liquid 400 mg PO Q4H PRN (Reason: Congestion) gabapentin 100 mg Capsule 200 mg PO BID Pros[place] Saline Gel [place],Non-Aerosol 1 spray INTRANASAL DAILY PRN (Reason: DRY NOSE) melatonin 5 mg Tablet 5 mg PO QHS albuterol sulfate 90 mcg/actuation Aero Powdr Breath Act W/Sensor 2 inh INHALATION Q6H levothyroxine 50 mcg Tablet 50 mcg PO DAILY pantoprazole 40 mg Tablet,Delayed Release (Dr/Ec) 40 mg PO DAILY amoxicillin-pot clavulanate 500-125 mg tablet 1 tab PO Q12H lenalidomide [Revlimid] 2.5 mg Capsule 2.5 mg PO DAILY Rx Instructions: swallow whole with glass of water; do not open, crush, chew , break, or dissolve Primary Care Provider: Trace Larry Referrals: Trace Larry DO [Primary Care Provider] - 3-5 Days if not improving Activity Restrictions/Additional Instructions: As discussed, please increase your Lasix to 40 mg twice a day today and tomorrow. On Sunday you can go back to your once a day dosing. Please check your weights daily. While up and moving, you can increase your oxygen to 4 or 5 L if you need. When you sit back at rest you can reduce it again to your normal 3 L. Disposition Disposition: Home, Self Care
--- NOTE | 2022-09-25 11:25 | RAD_ITS ---
STUDY: X-RAY CHEST REASON FOR EXAM: Female, 86 years old. Shortness of breath. TECHNIQUE: Single AP portable view of the chest. COMPARISON: Comparison is made with prior study July 20, 2022. FINDINGS: EKG electrodes are seen. There is evidence of CHF. Blunting of the right costophrenic angle. There is borderline cardiomegaly. A left-sided dual-chamber pacemaker is seen. Normal mediastinum and leo. Normal visualized pulmonary arteries. There is atherosclerotic calcification of the aortic arch with tortuosity. There are diffuse degenerative changes of the visualized thoracic spine. There is degenerative osteoarthritis of the bilateral shoulders. There is no demonstrated abnormality of the visualized soft tissue structures of the upper abdomen. RAD/Chest 1 View (Portable) IMPRESSION: CHF. Electronically Signed: Shiva Reynolds MD at 11:45 EDT ,
[2022-09-25 11:29] LABS: Absolute Lymphocyte Count 0.64 X10^3/uL (0.83-4.51); Absolute Neutrophil Count 1.8 X10^3/uL (2.0-7.7); Basophil# 0.05 X10^3/uL; Basophil% 1.5 % (0-1); Eosinophil# 0.15 X10^3/uL; Eosinophils% 4.6 % (0-5); Hematocrit 26.1 % (37-47); Hemoglobin 7.9 g/dL (12.0-15.0); Lymphocyte # 0.64 X10^3/ul (0.83-4.51); Lymphocyte % 19.5 % (19-41); Mean Corp Hgb Conc 30.3 g/dL (32-36); Mean Corpuscular Hgb 28.6 pg (27.0-32.0); Mean Corpuscular Volume 94.6 fL (81-99); Monocyte# 0.66 X10^3/uL; Monocyte% 20.1 % (0-10); NRBC Flagged by Analyzer 0 % (0-5); Neutrophil # 1.78 X10^3/uL (2.7-7.7); POSITIVE MORPHOLOGY YES; Platelet Count 108 K/mm3 (150-450); RBC Distribution Width CV 20.9 % (11.6-14.6); RBC Distribution Width SD 66.4 fl (35.1-43.9); Red Blood Count 2.76 M/mm3 (4.2-5.4); White Blood Count 3.3 K/mm3 (4.4-11.0)
[2022-09-25 11:30] LABS: Differential Indicated SCAN CRITERIA MET
[2022-09-25 11:44] LABS: International Normalized Ratio 2.2; Prothrombin Time (Protime)PT. 24.3 SECONDS (11.7-14.9)
[2022-09-25 11:48] LABS: Anion Gap 4 (5-15); BUN 36 mg/dL (7-18); BUN/Creat Ratio 22.2 RATIO (10-20); Calcium,Total 9.5 mg/dL (8.5-10.1); Chloride 104 mmol/L (98-107); Creatinine, Serum 1.62 mg/dL (0.55-1.02); EST Glomerular Filtration Rate 32 mL/min (>60); Est Glom Filt Rate - Afr Amer 39 mL/min (>60); Estimated Creatinine Clearance 17.91 ml/min; Glucose 161 mg/dL (74-106); Potassium 4.3 mmol/L (3.5-5.1); Sodium Level 139 mmol/L (136-145); Troponin-I HS 37 pg/mL (3.0-54.0)
[2022-09-25 11:50] LABS: Anisocytosis 2+
[2022-09-25 11:55] LABS: BNP,B-Type NATRIURETIC PEPTIDE 613.1 pg/mL (0-100)
[2022-09-25 13:58] VITALS: BP 120/80; PULSE 92; RESP 16
== END 2022-09-25 13:59 | disposition home or self-care (01) ==
PROVIDERS: Emergency Provider Emergency Medicine; PCP Student in an Organized Health Care Education/Training Program; Visit Provider Emergency Medicine
DX: I50.9 Heart failure, unspecified (principal); N18.9 Chronic kidney disease, unspecified
CPT/HCPCS: 71045; 80048; 83880; 84484; 85025; 85610; 93005; 99284; A4216

== ENCOUNTER 2022-10-03 11:57 | Outpatient (CLI) | payer MEDICARE, OTHER, SELFPAY ==
[2022-10-03 12:35] VITALS: BP 130/30; PULSE 75; RESP 16; TEMP 36.6; O2SAT 94; BMI 27.3
[2022-10-03 13:48] VITALS: BP 126/44; PULSE 73; RESP 16; TEMP 36.6; O2SAT 99
[2022-10-03 14:48] VITALS: BP 134/51; PULSE 73; RESP 16; TEMP 36.3; O2SAT 99
[2022-10-03 15:44] VITALS: BP 138/55; PULSE 73; RESP 16; TEMP 36.3; O2SAT 99
== END 2022-10-03 11:58 | disposition home or self-care (01) ==
LOC: MEDOUTP 11:57
PROVIDERS: PCP Student in an Organized Health Care Education/Training Program; Referring Provider Internal Medicine Hematology & Oncology; Visit Provider Internal Medicine Hematology & Oncology
DX: D46.20 Refractory anemia with excess of blasts, unspecified (principal)
CPT/HCPCS: 36430; 86850; 86900; 86901; 86920; P9016

== ENCOUNTER 2022-10-10 10:07 | Outpatient (CLI) | payer MEDICARE, OTHER, SELFPAY ==
[2022-10-10 10:31] VITALS: BP 125/44; PULSE 75; RESP 16; TEMP 36.4; O2SAT 100; BMI 27.5
[2022-10-10 10:54] VITALS: BP 104/60; PULSE 76; RESP 16; TEMP 36.3; O2SAT 100
[2022-10-10 11:58] VITALS: BP 159/71; PULSE 71; RESP 18; TEMP 36.3; O2SAT 96
[2022-10-10 12:41] VITALS: PULSE 72; RESP 16; TEMP 36.4; O2SAT 93
== END 2022-10-10 10:08 | disposition home or self-care (01) ==
LOC: MEDOUTP 10:08
PROVIDERS: PCP Student in an Organized Health Care Education/Training Program; Referring Provider Specialist; Visit Provider Specialist
DX: D46.20 Refractory anemia with excess of blasts, unspecified (principal)
CPT/HCPCS: 36430; 86850; 86900; 86901; 86920; 86922; J7040; P9016; A4216

== ENCOUNTER 2022-10-18 12:20 | Outpatient (CLI) | payer MEDICARE, OTHER, SELFPAY ==
[2022-10-18] MEDS: 0.9% NaCl Peripheral Flush Adult/Peds IV ×4 (12:51→13:10)
[2022-10-18 12:54] VITALS: BP 130/46; PULSE 73; RESP 16; TEMP 36.1; O2SAT 100; BMI 26.9
[2022-10-18 14:15] VITALS: BP 129/45; PULSE 74; RESP 16; TEMP 36.2; O2SAT 100
[2022-10-18 15:30] VITALS: BP 118/49; PULSE 78; RESP 16; TEMP 36.4; O2SAT 97
== END 2022-10-18 12:21 | disposition home or self-care (01) ==
LOC: MEDOUTP 12:20
PROVIDERS: PCP Student in an Organized Health Care Education/Training Program; Referring Provider Internal Medicine Hematology & Oncology; Visit Provider Internal Medicine Hematology & Oncology
DX: D46.20 Refractory anemia with excess of blasts, unspecified (principal)
CPT/HCPCS: 36430; 86850; 86900; 86901; 86920; 86922; J7040; P9016; A4216

== ENCOUNTER 2022-10-24 11:24 | Outpatient (CLI) | payer MEDICARE, OTHER, SELFPAY ==
[2022-10-24] MEDS: 0.9% Normal Saline (500mL Bag) 500 ML 15 ML IV (11:50)
[2022-10-24] MEDS: 0.9% NaCl Peripheral Flush Adult/Peds IV (11:50)
[2022-10-24 11:51] VITALS: BP 134/44; PULSE 79; RESP 16; TEMP 36.4; O2SAT 99; BMI 26.5
[2022-10-24 12:30] VITALS: BP 132/47; PULSE 75; RESP 16; TEMP 36.4; O2SAT 99
[2022-10-24 13:30] VITALS: BP 101/72; PULSE 73; RESP 16; TEMP 36.2; O2SAT 100
[2022-10-24 14:15] VITALS: BP 138/39; PULSE 74; RESP 16; TEMP 36.2; O2SAT 100
== END 2022-10-24 11:25 | disposition home or self-care (01) ==
LOC: MEDOUTP 11:24
PROVIDERS: PCP Student in an Organized Health Care Education/Training Program; Referring Provider Specialist; Visit Provider Specialist
DX: D46.20 Refractory anemia with excess of blasts, unspecified (principal)
CPT/HCPCS: 36430; 86850; 86900; 86901; 86920; 86922; J7040; P9040; A4216

== ENCOUNTER 2022-10-31 10:20 | Outpatient (CLI) | payer MEDICARE, OTHER, SELFPAY ==
[2022-10-31] MEDS: 0.9% NaCl Peripheral Flush Adult/Peds IV (10:55)
[2022-10-31] MEDS: 0.9% Normal Saline (500mL Bag) 500 ML 15 ML IV (10:56)
[2022-10-31 11:10] VITALS: BP 131/44; PULSE 80; RESP 16; TEMP 36.4; O2SAT 96; BMI 26.9
[2022-10-31 11:48] VITALS: BP 143/55; PULSE 76; RESP 18; TEMP 36.3
[2022-10-31 12:48] VITALS: BP 127/95; PULSE 81; RESP 16; TEMP 36.3
[2022-10-31 14:05] VITALS: BP 144/59; PULSE 79; RESP 16
== END 2022-10-31 10:21 | disposition home or self-care (01) ==
PROVIDERS: PCP Student in an Organized Health Care Education/Training Program; Referring Provider Specialist; Visit Provider Specialist
DX: D46.20 Refractory anemia with excess of blasts, unspecified (principal)
CPT/HCPCS: 36430; 86850; 86900; 86901; 86920; 86922; J7040; P9016; A4216

== ENCOUNTER 2022-11-07 09:30 | Outpatient (CLI) | payer MEDICARE, OTHER, SELFPAY ==
[2022-11-07 09:51] VITALS: BP 138/34; PULSE 78; RESP 16; TEMP 36.6; O2SAT 97; BMI 27.1
[2022-11-07 10:30] VITALS: BP 125/35; PULSE 74; RESP 16; TEMP 36.3; O2SAT 98
[2022-11-07 11:27] VITALS: BP 151/67; PULSE 75; RESP 16; TEMP 36; O2SAT 99
[2022-11-07 12:05] VITALS: BP 145/62; PULSE 72; RESP 16; TEMP 36.1; O2SAT 99
== END 2022-11-07 09:31 | disposition home or self-care (01) ==
LOC: MEDOUTP 09:31
PROVIDERS: PCP Student in an Organized Health Care Education/Training Program; Referring Provider Internal Medicine Hematology & Oncology; Visit Provider Internal Medicine Hematology & Oncology
DX: D46.20 Refractory anemia with excess of blasts, unspecified (principal)
CPT/HCPCS: 36430; 86850; 86900; 86901; 86920; 86922; J7040; P9016; A4216

== ENCOUNTER 2022-11-14 08:27 | Outpatient (CLI) | payer MEDICARE, OTHER, SELFPAY ==
[2022-11-14] VITALS (9 sets, daily range): BP systolic 123–157; BP diastolic 39–69; PULSE 71–78; RESP 16; TEMP 36–36.4; O2SAT 96–100
[2022-11-14] MEDS: 0.9% NaCl Peripheral Flush Adult/Peds IV ×2 (08:44→09:32)
[2022-11-14] MEDS: 0.9% Normal Saline (500mL Bag) 500 ML 15 ML IV (09:31)
== END 2022-11-14 08:28 | disposition home or self-care (01) ==
LOC: MEDOUTP 08:28
PROVIDERS: PCP Student in an Organized Health Care Education/Training Program; Referring Provider Internal Medicine Hematology & Oncology; Visit Provider Internal Medicine Hematology & Oncology
DX: D46.20 Refractory anemia with excess of blasts, unspecified (principal)
CPT/HCPCS: 36430; 86850; 86900; 86901; 86920; 86922; J7040; P9016; A4216

== ENCOUNTER 2022-11-21 11:36 | Outpatient (CLI) | payer MEDICARE, OTHER, SELFPAY ==
[2022-11-21 11:56] VITALS: BP 122/41; PULSE 77; RESP 18; TEMP 36.5; O2SAT 90
[2022-11-21 12:33] VITALS: BP 128/48; PULSE 75; RESP 16; TEMP 36.6; O2SAT 93
[2022-11-21 13:33] VITALS: BP 148/50; PULSE 71; RESP 18
[2022-11-21 14:53] VITALS: BP 135/45; PULSE 74; RESP 16; TEMP 36.6; O2SAT 96
== END 2022-11-21 11:37 | disposition home or self-care (01) ==
LOC: MEDOUTP 11:37
PROVIDERS: PCP Student in an Organized Health Care Education/Training Program; Referring Provider Specialist; Visit Provider Specialist
DX: D46.20 Refractory anemia with excess of blasts, unspecified (principal)
CPT/HCPCS: 36430; 86850; 86900; 86901; 86920; 86922; J7040; P9016; A4216

== ENCOUNTER 2022-11-28 11:46 | Outpatient (CLI) | payer MEDICARE, OTHER, SELFPAY ==
[2022-11-28] MEDS: 0.9% Normal Saline (500mL Bag) 500 ML 15 ML IV (12:04)
[2022-11-28] MEDS: 0.9% NaCl Peripheral Flush Adult/Peds IV (12:04)
[2022-11-28 12:26] VITALS: BP 125/65; PULSE 74; RESP 18; TEMP 36.3; O2SAT 94; BMI 27.1
[2022-11-28 13:12] VITALS: BP 129/58; PULSE 73; RESP 16; TEMP 36.3; O2SAT 95
[2022-11-28 14:12] VITALS: BP 135/56; PULSE 73; RESP 16; TEMP 36.1; O2SAT 94
[2022-11-28 15:16] VITALS: BP 156/71; PULSE 76; RESP 16; TEMP 36; O2SAT 95
== END 2022-11-28 11:47 | disposition home or self-care (01) ==
LOC: MEDOUTP 11:46
PROVIDERS: PCP Student in an Organized Health Care Education/Training Program; Referring Provider Internal Medicine Hematology & Oncology; Visit Provider Internal Medicine Hematology & Oncology
DX: D46.20 Refractory anemia with excess of blasts, unspecified (principal)
CPT/HCPCS: 36430; 86850; 86900; 86901; 86920; 86922; J7040; P9016; A4216

== ENCOUNTER 2022-12-05 12:02 | Outpatient (CLI) | payer MEDICARE, OTHER, SELFPAY ==
[2022-12-05 12:30] VITALS: BP 115/37; PULSE 79; RESP 16; TEMP 36; O2SAT 94; BMI 27.2
[2022-12-05] MEDS: 0.9% NaCl Peripheral Flush Adult/Peds IV (12:35)
[2022-12-05] MEDS: 0.9% Normal Saline (500mL Bag) 500 ML 15 ML IV (12:35)
[2022-12-05 13:02] VITALS: BP 138/57; PULSE 73; RESP 16; TEMP 36.2; O2SAT 95
[2022-12-05 14:02] VITALS: BP 135/73; PULSE 73; RESP 16; TEMP 36.3; O2SAT 98
[2022-12-05 14:27] VITALS: BP 135/70; PULSE 74; RESP 16; TEMP 36.1; O2SAT 96
== END 2022-12-05 12:03 | disposition home or self-care (01) ==
LOC: MEDOUTP 12:02
PROVIDERS: PCP Student in an Organized Health Care Education/Training Program; Referring Provider Specialist; Visit Provider Specialist
DX: D46.20 Refractory anemia with excess of blasts, unspecified (principal)
CPT/HCPCS: 36430; 86850; 86900; 86901; 86920; 86922; J7040; P9016; A4216

== ENCOUNTER 2022-12-12 10:26 | Outpatient (CLI) | payer MEDICARE, OTHER, SELFPAY ==
[2022-12-12] MEDS: 0.9% Normal Saline (500mL Bag) 500 ML 15 ML IV (10:59)
[2022-12-12] MEDS: 0.9% NaCl Peripheral Flush Adult/Peds IV ×2 (10:59→11:05)
[2022-12-12] MEDS: Acetaminophen 500 MG Tablet 1000 MG PO (10:59)
[2022-12-12 11:01] VITALS: BP 116/33; PULSE 79; RESP 16; TEMP 36.3; O2SAT 98; BMI 27.1
[2022-12-12 11:31] VITALS: BP 120/49; PULSE 72; RESP 16; TEMP 36.4; O2SAT 94
[2022-12-12 12:31] VITALS: BP 155/92; PULSE 73; RESP 16; TEMP 36.5; O2SAT 98
[2022-12-12 13:31] VITALS: BP 150/54; PULSE 74; RESP 16; TEMP 36.4; O2SAT 96
== END 2022-12-12 10:27 | disposition home or self-care (01) ==
LOC: MEDOUTP 10:27
PROVIDERS: PCP Student in an Organized Health Care Education/Training Program; Referring Provider Specialist; Visit Provider Specialist
DX: D46.20 Refractory anemia with excess of blasts, unspecified (principal)
CPT/HCPCS: 36430; 86850; 86900; 86901; 86920; 86922; J7040; P9016; A4216

== ENCOUNTER 2022-12-26 08:27 | Outpatient (CLI) | payer MEDICARE, OTHER, SELFPAY ==
[2022-12-26 08:39] VITALS: BP 145/44; PULSE 79; RESP 20; TEMP 36.2
[2022-12-26 09:13] VITALS: BP 121/34; PULSE 73; RESP 16; TEMP 36.5
[2022-12-26 10:13] VITALS: BP 138/43; PULSE 75; RESP 20; TEMP 36.1
[2022-12-26 10:57] VITALS: BP 114/53; PULSE 75; RESP 18; TEMP 36.3; O2SAT 97
[2022-12-26 11:27] VITALS: BP 144/47; PULSE 74; RESP 20; TEMP 36.3; O2SAT 97
[2022-12-26 13:38] VITALS: BP 103/55; PULSE 78; RESP 16; TEMP 36.4; O2SAT 97
== END 2022-12-26 08:28 | disposition home or self-care (01) ==
LOC: MEDOUTP 08:27
PROVIDERS: PCP Student in an Organized Health Care Education/Training Program; Referring Provider Internal Medicine Hematology & Oncology; Visit Provider Internal Medicine Hematology & Oncology
DX: D46.20 Refractory anemia with excess of blasts, unspecified (principal)
CPT/HCPCS: 36430; 86850; 86900; 86901; 86920; 86922; J7040; P9016; A4216

== ENCOUNTER 2023-01-02 08:51 | Outpatient (CLI) | payer MEDICARE, OTHER, SELFPAY ==
[2023-01-02 09:10] VITALS: BP 133/43; PULSE 73; RESP 14; TEMP 36.3; O2SAT 99; BMI 26.5
[2023-01-02 09:49] VITALS: BP 131/40; PULSE 73; RESP 16; TEMP 36.2; O2SAT 98
[2023-01-02 10:47] VITALS: BP 137/47; PULSE 73; RESP 16; TEMP 36.2; O2SAT 99
[2023-01-02 11:40] VITALS: BP 132/39; PULSE 74; RESP 16; TEMP 36.2; O2SAT 100
== END 2023-01-02 08:52 | disposition home or self-care (01) ==
LOC: MEDOUTP 08:51
PROVIDERS: PCP Student in an Organized Health Care Education/Training Program; Referring Provider Specialist; Visit Provider Specialist
DX: D46.20 Refractory anemia with excess of blasts, unspecified (principal)
CPT/HCPCS: 36430; 86850; 86900; 86901; 86920; 86922; J7040; P9016; A4216

== ENCOUNTER 2023-01-09 10:33 | Outpatient (CLI) | payer MEDICARE, OTHER, SELFPAY ==
[2023-01-09 11:02] VITALS: BP 133/56; PULSE 77; RESP 16; TEMP 36.4; O2SAT 99; BMI 26.5
[2023-01-09] MEDS: 0.9% NaCl Peripheral Flush Adult/Peds IV (11:16)
[2023-01-09 11:31] VITALS: BP 110/75; PULSE 73; RESP 16; TEMP 36.6; O2SAT 96
[2023-01-09 12:31] VITALS: BP 145/55; PULSE 73; RESP 16; TEMP 36.2; O2SAT 96
[2023-01-09 13:29] VITALS: BP 147/53; PULSE 73; RESP 16; TEMP 36.6; O2SAT 100
== END 2023-01-09 10:34 | disposition home or self-care (01) ==
LOC: MEDOUTP 10:35
PROVIDERS: PCP Student in an Organized Health Care Education/Training Program; Visit Provider Internal Medicine Hematology & Oncology
DX: D46.20 Refractory anemia with excess of blasts, unspecified (principal)
CPT/HCPCS: 36430; 86850; 86900; 86901; 86920; 86922; P9040; A4216

== ENCOUNTER 2023-01-16 09:26 | Outpatient (CLI) | payer MEDICARE, OTHER, SELFPAY ==
[2023-01-16 09:41] VITALS: BP 125/40; PULSE 74; RESP 16; TEMP 36.3; O2SAT 100; BMI 27.3
[2023-01-16 10:18] VITALS: BP 130/42; PULSE 74; RESP 16; TEMP 36.3; O2SAT 99
[2023-01-16 11:23] VITALS: BP 123/60; PULSE 71; RESP 16; TEMP 36.2; O2SAT 100
== END 2023-01-16 09:27 | disposition home or self-care (01) ==
LOC: MEDOUTP 09:26
PROVIDERS: PCP Student in an Organized Health Care Education/Training Program; Referring Provider Internal Medicine Hematology & Oncology; Visit Provider Internal Medicine Hematology & Oncology
DX: D46.20 Refractory anemia with excess of blasts, unspecified (principal)
CPT/HCPCS: 36430; 86850; 86900; 86901; 86920; 86922; P9016; A4216

== ENCOUNTER 2023-01-16 11:34 | Emergency (ER) | payer MEDICARE, OTHER, SELFPAY ==
[2023-01-16 11:35] VITALS: BP 129/48; PULSE 73; RESP 14; TEMP 35.7; O2SAT 100
--- NOTE | 2023-01-16 11:53 | EDS_ITS ---
HPI <JONNY Lai - Last Filed: 01/16/23 16:29> History of Present Illness Chief Complaint: Chest Pain Narrative Narrative: Patient presenting today due to, crackles in her chest that she experienced while receiving a blood transfusion this morning. She reports that she receives blood transfusions due to history of anemia and MDS. She did not seem to notice these crackles with breathing and denies having any chest pressure or pain. She reports that she does have chronic shortness of breath on exertion and wears 6 L O2 at baseline. She does not feel more short of breath usual. She reports a history of CHF, she is on Lasix and is compliant with this. She has not noticed any major swelling in her extremities as usual. She denies any fever or chills. PMH includes atrial fibrillation, CKD, CHF, diabetes mellitus, and COPD. PFSH <JONNY Lai - Last Filed: 01/16/23 16:29> [facility] Medical History Afib Anemia CHF (congestive heart failure) CKD (chronic kidney disease) COPD (chronic obstructive pulmonary disease) Diabetes Hypothyroid MDS (myelodysplastic syndrome), low grade Myelodysplastic syndrome Pacemaker Home Medications calcium carbonate 400 mg calcium (1,000 mg) chewable tablet (Tums Ultra) 400 mg PO DAILY 12/07/20 [History Last Taken Unknown] ergocalciferol (vitamin D2) 1,250 mcg (50,000 unit) capsule 1,250 mcg PO UD 12/07/20 [History Last Taken 07/09/22] montelukast 10 mg tablet (Singulair) 10 mg PO DAILY 12/07/20 [History Last Taken 07/19/22] warfarin 5 mg tablet 2.5 mg PO DAILY 12/07/20 [History Last Taken 07/19/22] allopurinol 100 mg tablet 100 mg PO DAILY 06/28/21 [History Last Taken 07/20/22] calcitriol 0.25 mcg capsule 0.25 mcg PO DAILY 06/28/21 [History Last Taken 07/20/22] furosemide 40 mg tablet 40 mg PO MOTUWETHFR 06/28/21 [History Last Taken 07/20/22] loperamide 2 mg tablet 2 mg PO TIDCM CHRONIC DIARRHEA 05/17/22 [History Last Taken 07/20/22] metoprolol succinate 25 mg tablet,extended release 24 hr 25 mg PO DAILY HEART 06/28/21 [History Last Taken 05/08/22] acetaminophen 500 mg tablet 1,000 mg PO BID PAIN 05/09/22 [History Last Taken 07/20/22] albuterol sulfate 90 mcg/actuation breath activated powder inhaler,sensor 2 inh inhalation Q6H COPD 05/09/22 [History Last Taken 07/20/22] gabapentin 100 mg capsule 200 mg PO BID FOOT PAIN 05/09/22 [History Last Taken 07/20/22] guaifenesin 100 mg/5 mL oral liquid 400 mg PO Q4H PRN Congestion 05/09/22 [History Last Taken 07/20/22] levothyroxine 50 mcg tablet 50 mcg PO DAILY THYROID 05/09/22 [History Last Taken 07/20/22] melatonin 5 mg tablet 5 mg PO QHS SLEEP 05/09/22 [History Last Taken 07/19/22] pantoprazole 40 mg tablet,delayed release 40 mg PO DAILY GERD 05/09/22 [History Last Taken 07/20/22] sodium chloride-aloe vera nasal spray ([place] Saline Gel nasal spray) 1 spray intranasal DAILY PRN DRY NOSE 05/09/22 [History Last Taken 05/08/22] lenalidomide 2.5 mg capsule (Revlimid) 2.5 mg PO DAILY . 07/20/22 [History Last Taken 07/20/22] torsemide 20 mg tablet 20 mg PO DAILY 12/12/22 [History Last Taken Unknown] Allergy/AdvReac Type Severity Reaction Status Date / Time digoxin Allergy PT UNSURE Verified 01/16/23 11:35 OF REACTION Family History Other Heart disease Social History housing: assisted living facility Smoking Status: Never smoker alcohol intake: never substance use type: does not use ROS <JONNY Lai - Last Filed: 01/16/23 16:29> ROS ED Constitutional Constitutional ED: Denies chills or fever(s) Eyes Eyes: Denies change in vision Cardiovascular Cardiovascular: Denies chest pain, palpitations or racing heartbeat Respiratory/Chest Respiratory/Chest: Reports dyspnea on exertion; Denies cough or dyspnea Gastrointestinal Gastrointestinal: Denies abdominal pain, nausea or vomiting Musculoskeletal Musculoskeletal: Denies arthralgias or myalgias Integumentary Denies rash Neurologic Neurologic: Denies weakness EXAM <JONNY Lai - Last Filed: 01/16/23 16:29> Physical Exam Const Vital Signs: 01/16/23 11:35 01/16/23 11:58 01/16/23 11:59 Temperature 96.3 F L Temperature Source Temporal Pulse Rate 73 89 Respiratory Rate 14 16 Respiratory Effort Short of Breath Blood Pressure 129/48 H 138/70 H Blood Pressure Mean 75 92 Pulse Ox 100 100 Oxygen Delivery Method Room Air Room Air 01/16/23 12:12 Temperature Temperature Source Pulse Rate Respiratory Rate Respiratory Effort Blood Pressure Blood Pressure Mean Pulse Ox Oxygen Delivery Method Room Air Positive well nourished, well developed and no apparent distress General Appearance ED: well developed HEENT Reports normocephalic and head/scalp atraumatic Mouth ED: Yes moist mucous membranes normal Eyes PERRL and EOMs intact bilaterally Neck full ROM and supple Chest Wall inspection of chest normal Resp normal respiratory effort Resp Narrative: Faint crackles at the lung bases bilaterally. Cardio regular rate and regular rhythm GI soft to palpation, non-tender, non-distended and no masses Back/Spine normal ROM and normal to inspection Extremity normal to inspection and full ROM Neuro oriented x3, CN's II-XII intact bilaterally, moves all extremities, no focal motor deficits and no sensory deficits noted Sensorium / Orientation: awake and alert Psych mental status grossly normal and thought process normal Skin no rashes or lesions noted and no wounds <Dr. Ammon Ralph MD - Last Filed: 01/16/23 12:03> Physical Exam Const Vital Signs: 01/16/23 11:35 01/16/23 11:58 01/16/23 11:59 Temperature 96.3 F L Temperature Source Temporal Pulse Rate 73 89 Respiratory Rate 14 16 Respiratory Effort Short of Breath Blood Pressure 129/48 H 138/70 H Blood Pressure Mean 75 92 Pulse Ox 100 100 Oxygen Delivery Method Room Air Room Air 01/16/23 12:12 Temperature Temperature Source Pulse Rate Respiratory Rate Respiratory Effort Blood Pressure Blood Pressure Mean Pulse Ox Oxygen Delivery Method Room Air MDM <JONNY Lai - Last Filed: 01/16/23 16:29> MDM MDM Narrative Medical decision making narrative: Patient presenting due to feeling, and crackles in her chest while receiving a blood transfer for her chronic anemia from [facility] this [place]. She did not experience any chest pain or pressure. She reports that her symptoms have now subsided. She reports feeling well. Workup will be obtained to rule out ACS, chest x-ray will be obtained to rule out infiltrate, pleural effusion, and other cardio pulmonary abnormality. Labs are consistent with her MDS. Kidney function is consistent with her CKD and previous labs. We spoke with Dr. Almaguer who is okay with her following up as an outpatient to receive her transfusion that was stopped today due to her symptoms. Chest x-ray shows vascular congestion and CHF, consistent with previous chest x-rays. She does take Lasix daily, she does not have any peripheral edema, I do not think that her dose needs to be adjusted. Troponin is 35, patient will be discharged home in stable condition and is comfortable with plan. I have personally performed a face to face assessment of the patient and have reviewed the ROSA Note. I performed a substantive portion of the visit including all aspects of the following. My scherer findings include: History is 87-year-old female with history of myelodysplastic disease. Today was undergoing a transfusion of blood when she felt crackles in her chest. No chest pain. No fever or cough. She denies any shortness of breath. She has received many transfusions in the past and had no prior problems. Currently she says she feels fine and the crackles have gone away. Exam is [well-appearing 87-year-old female. Vital signs stable. Afebrile. Pulse ox 100% on room air no hypoxia. HEENT exam unremarkable. Neck nontender no JVD. Lungs clear to auscultation bilaterally. Heart paced rhythm rate in the 80s. 3/6 systolic ejection murmur. Chest wall nontender. Abdomen soft nontender. Moving all 4 extremities. Nontender no edema. Neurologically she is awake and alert answering questions and following commands.] Medical Decision Making [patient will undergo cardiac workup. Her exam is benign.] Other additions or changes: [None] Lab Data Lab results narrative: WBC 1.4, RBC 2.52, H&H 7.2 and 23.5, platelet count 54, BUN 38, creatinine 1.82, glucose 277 Labs: Laboratory Results - last 24 hr 12/05/23 11:55 WBC 1.4 L* RBC 2.52 L Hgb 7.2 L Hct 23.5 L MCV 93.3 MCH 28.6 MCHC 30.6 L RDW Std Deviation 56.9 H RDW Coeff of Anjana 17.5 H Plt Count 54 L MPV 13.7 H Neut % (Auto) Not Reportable Absolute Neuts (auto) 1.2 L Absolute Lymphs (auto) 0.21 L Total Counted 100 Neutrophils % (Manual) 83 H Band Neutrophils % 2 Lymphocytes % (Manual) 15 L Platelet Estimate MKD DEC Hypochromasia 1+ Anisocytosis 2+ Sodium 137 Potassium 4.7 Chloride 99 Carbon Dioxide 30.0 Anion Gap 8 BUN 38 H Creatinine 1.82 H Est GFR (MDRD) Af Amer 34 L Est GFR (MDRD) Non-Af 28 L BUN/Creatinine Ratio 20.9 H Glucose 277 H Calcium 8.8 Troponin I High Sens 35 Radiography Diagnostic Testing: Clinical Impression(s) from Imaging Studies Chest X-Ray 01/16/23 12:07 IMPRESSION: Vascular congestion and CHF. Electronically Signed: Shiva Reynolds MD at 12:43 EST , EKG Initial EKG: Comments: 89 bpm, ventricular paced rhythm, no ST elevation, reviewed and interpreted by attending ED physician <Dr. Ammon Ralph MD - Last Filed: 01/16/23 12:03> [facility] Narrative Medical decision making narrative: Patient presenting due to feeling, and crackles in her chest while receiving a blood transfer for her chronic anemia from [facility] this morning. She did not experience any chest pain or pressure. She reports that her symptoms have now subsided. She reports feeling well. Workup will be obtained to rule out ACS, chest x-ray will be obtained to rule out infiltrate, pleural effusion, and other cardio pulmonary abnormality I have personally performed a face to face assessment of the patient and have reviewed the ROSA Note. I performed a substantive portion of the visit including all aspects of the following. My scherer findings include: History is 87-year-old female with history of myelodysplastic disease. Today was undergoing a transfusion of blood when she felt crackles in her chest. No chest pain. No fever or cough. She denies any shortness of breath. She has received many transfusions in the past and had no prior problems. Currently she says she feels fine and the crackles have gone away. Exam is [well-appearing 87-year-old female. Vital signs stable. Afebrile. Pulse ox 100% on room air no hypoxia. HEENT exam unremarkable. Neck nontender no JVD. Lungs clear to auscultation bilaterally. Heart paced rhythm rate in the 80s. 3/6 systolic ejection murmur. Chest wall nontender. Abdomen soft nontender. Moving all 4 extremities. Nontender no edema. Neurologically she is awake and alert answering questions and following commands.] Medical Decision Making [patient will undergo cardiac workup. Her exam is benign.] Other additions or changes: [None] History & Record Review Discussion w/independent historian: Patient Additional record(s) reviewed:: Prior inpatient record, Prior outpatient record, Prior ED visit and Prior labs Lab Data Attestation: I reviewed the patient's lab results. Labs: Laboratory Results - last 24 hr 01/16/23 11:55 WBC 1.4 L* RBC 2.52 L Hgb 7.2 L Hct 23.5 L MCV 93.3 MCH 28.6 MCHC 30.6 L RDW Std Deviation 56.9 H RDW Coeff of Anjana 17.5 H Plt Count 54 L MPV 13.7 H Neut % (Auto) Not Reportable Absolute Neuts (auto) 1.2 L Absolute Lymphs (auto) 0.21 L Total Counted 100 Neutrophils % (Manual) 83 H Band Neutrophils % 2 Lymphocytes % (Manual) 15 L Platelet Estimate MKD DEC Hypochromasia 1+ Anisocytosis 2+ Sodium 137 Potassium 4.7 Chloride 99 Carbon Dioxide 30.0 Anion Gap 8 BUN 38 H Creatinine 1.82 H Est GFR (MDRD) Af Amer 34 L Est GFR (MDRD) Non-Af 28 L BUN/Creatinine Ratio 20.9 H Glucose 277 H Calcium 8.8 Troponin I High Sens 35 Radiography Diagnostic Testing: Clinical Impression(s) from Imaging Studies Chest X-Ray 01/16/23 12:07 IMPRESSION: Vascular congestion and CHF. Electronically Signed: Shiva Reynolds MD at 12:43 EST , Discharge Plan Triage Chief Complaint: Chest Pain ED Midlevel Provider: Jennyfer Bryant ED Provider: Ammon Ralph Dx/Rx/DC Orders Clinical Impression: MDS (myelodysplastic syndrome), COPD (chronic obstructive pulmonary disease), History of CHF (congestive heart failure) Instructions: ED Heart Failure, Congestive (CHF) Prescriptions: No Action calcium carbonate [Tums Ultra] 400 mg calcium (1,000 mg) Tablet,Chewable 400 mg PO DAILY warfarin 5 mg Tablet 2.5 mg PO DAILY montelukast [Singulair] 10 mg Tablet 10 mg PO DAILY ergocalciferol (vitamin D2) 1,250 mcg (50,000 unit) Capsule 1,250 mcg PO UD furosemide 40 mg Tablet 40 mg PO MOTUWETHFR Hold Instructions: not on home med list Rx Instructions: EVERY Sunday, SUNDAY, SUNDAY, AND SUNDAY metoprolol succinate 25 mg Tablet Extended Release 24 Hr 25 mg PO DAILY Hold Instructions: not on home med list loperamide 2 mg Tablet 2 mg PO TIDCM allopurinol 100 mg Tablet 100 mg PO DAILY calcitriol 0.25 mcg Capsule 0.25 mcg PO DAILY acetaminophen 500 mg Tablet 1,000 mg PO BID guaifenesin 100 mg/5 mL Liquid 400 mg PO Q4H PRN (Reason: Congestion) gabapentin 100 mg Capsule 200 mg PO BID [place] Saline Gel [place],Non-Aerosol 1 spray INTRANASAL DAILY PRN (Reason: DRY NOSE) melatonin 5 mg Tablet 5 mg PO QHS albuterol sulfate 90 mcg/actuation Aero Powdr Breath Act W/Sensor 2 inh INHALATION Q6H levothyroxine 50 mcg Tablet 50 mcg PO DAILY pantoprazole 40 mg Tablet,Delayed Release (Dr/Ec) 40 mg PO DAILY lenalidomide [Revlimid] 2.5 mg Capsule 2.5 mg PO DAILY Hold Instructions: not on home med list Rx Instructions: swallow whole with glass of water; do not open, crush, chew , break, or dissolve torsemide 20 mg tablet 20 mg PO DAILY Primary Care Provider: Trace Larry Referrals: Trace Larry DO [Primary Care Provider] - 5-7 Days Activity Restrictions/Additional Instructions: Follow-up with your PCP, return for any worsening of your symptoms. Disposition Disposition: Home, Self Care Discharge Date/Time: 01/16/23 13:50
[2023-01-16 11:59] VITALS: BP 138/70; PULSE 89; RESP 16; O2SAT 100
[2023-01-16 12:07] LABS: Hematocrit 23.5 % (37-47); Hemoglobin 7.2 g/dL (12.0-15.0); Mean Corp Hgb Conc 30.6 g/dL (32-36); Mean Corpuscular Hgb 28.6 pg (27.0-32.0); Mean Corpuscular Volume 93.3 fL (81-99); Mean Platelet Vol. 13.7 fl (6.2-12.0); POSITIVE COUNT YES; POSITIVE DIFFERENTIAL YES; POSITIVE MORPHOLOGY YES; Platelet Count 54 K/mm3 (150-450); RBC Distribution Width CV 17.5 % (11.6-14.6); RBC Distribution Width SD 56.9 fl (35.1-43.9); Red Blood Count 2.52 M/mm3 (4.2-5.4); White Blood Count 1.4 K/mm3 (4.4-11.0)
--- NOTE | 2023-01-16 12:07 | RAD_ITS ---
STUDY: X-RAY CHEST REASON FOR EXAM: Female, 87 years old. Chest pain TECHNIQUE: Single AP portable view of the chest. COMPARISON: Comparison is made with prior study dated September 25, 2022. FINDINGS: EKG electrodes are seen. Stable elevation of the right hemidiaphragm. Vascular congestion and CHF. There is no demonstrated pleural abnormality. There is borderline cardiomegaly. A left-sided dual chamber pacemaker is seen. Normal mediastinum and leo. Normal visualized pulmonary arteries. There is atherosclerotic calcification of the aortic arch with tortuosity. There are degenerative changes of the visualized thoracic spine. There is degenerative osteoarthritis of the bilateral shoulders. There is no demonstrated abnormality of the visualized soft tissue structures of the upper abdomen. RAD/Chest 1 View (Portable) IMPRESSION: Vascular congestion and CHF. Electronically Signed: Shiva Reynolds MD at 12:43 EST ,
[2023-01-16 12:09] LABS: Differential Indicated MANUAL DIFF
[2023-01-16 12:22] LABS: Anion Gap 8 (5-15); BUN 38 mg/dL (7-18); BUN/Creat Ratio 20.9 RATIO (10-20); Calcium,Total 8.8 mg/dL (8.5-10.1); Chloride 99 mmol/L (98-107); Creatinine, Serum 1.82 mg/dL (0.55-1.02); EST Glomerular Filtration Rate 28 mL/min (>60); Est Glom Filt Rate - Afr Amer 34 mL/min (>60); Glucose 277 mg/dL (74-106); Potassium 4.7 mmol/L (3.5-5.1); Sodium Level 137 mmol/L (136-145); Troponin-I HS 35 pg/mL (3.0-54.0)
[2023-01-16 12:39] LABS: Anisocytosis 2+; Lymphocyte 15 % (19-41); Neutrophil-Band 2 % (0-5); Neutrophil-Segmented 83 % (47-70); Platelet Estimate MKD DEC (ADEQ); Total Cells Counted 100 (MANUAL DIFF)
[2023-01-16 12:40] LABS: Absolute Lymphocyte Count 0.21 X10^3/uL (0.83-4.51); Absolute Neutrophil Count 1.2 X10^3/uL (2.0-7.7); Hypochromasia 1+
== END 2023-01-16 13:50 | disposition home or self-care (01) ==
PROVIDERS: Emergency Provider Emergency Medicine; PCP Student in an Organized Health Care Education/Training Program; Referring Provider Emergency Medicine; Visit Provider Emergency Medicine
DX: D46.9 Myelodysplastic syndrome, unspecified (principal); J44.9 Chronic obstructive pulmonary disease, unspecified; I50.9 Heart failure, unspecified; E11.22 Type 2 diabetes mellitus with diabetic chronic kidney disease; N18.9 Chronic kidney disease, unspecified; Z99.81 Dependence on supplemental oxygen; Z95.0 Presence of cardiac pacemaker
CPT/HCPCS: 71045; 80048; 84484; 85025; 93005; 99284

== ENCOUNTER 2023-01-23 12:13 | Outpatient (CLI) | payer MEDICARE, OTHER, SELFPAY ==
[2023-01-23 12:46] VITALS: BP 117/47; PULSE 78; RESP 18; TEMP 35.9; O2SAT 97
[2023-01-23] MEDS: 0.9% NaCl Peripheral Flush Adult/Peds IV (13:01)
[2023-01-23] MEDS: 0.9% Normal Saline (500mL Bag) 500 ML 15 ML IV (13:17)
[2023-01-23 13:51] VITALS: BP 140/66; PULSE 74; RESP 16; TEMP 36.4; O2SAT 97
[2023-01-23 14:51] VITALS: BP 151/70; PULSE 72; RESP 16; TEMP 36.3; O2SAT 97
[2023-01-23 15:25] VITALS: BP 145/65; PULSE 74; RESP 16; TEMP 36.3; O2SAT 98
== END 2023-01-23 12:14 | disposition home or self-care (01) ==
LOC: MEDOUTP 12:14
PROVIDERS: PCP Student in an Organized Health Care Education/Training Program; Referring Provider Internal Medicine Hematology & Oncology; Visit Provider Internal Medicine Hematology & Oncology
DX: D46.20 Refractory anemia with excess of blasts, unspecified (principal)
CPT/HCPCS: 36430; 86850; 86900; 86901; 86920; 86922; J7040; P9016; A4216

== ENCOUNTER 2023-02-14 10:35 | Outpatient (CLI) | payer MEDICARE, OTHER, SELFPAY ==
[2023-02-14 10:54] VITALS: BP 118/45; PULSE 74; RESP 16; TEMP 36.4; BMI 27.5
[2023-02-14] MEDS: 0.9% NaCl Peripheral Flush Adult/Peds IV (11:06)
[2023-02-14 11:38] VITALS: BP 113/53; PULSE 76; RESP 16; TEMP 36.5
[2023-02-14 12:38] VITALS: BP 140/62; PULSE 76; RESP 16; TEMP 36.3
[2023-02-14 14:00] VITALS: BP 134/66; PULSE 75; RESP 16; TEMP 36.4
[2023-02-14 15:21] VITALS: BP 138/67; PULSE 73; RESP 16; TEMP 36.2
[2023-02-14 15:55] VITALS: BP 153/73; PULSE 79; RESP 16; TEMP 36.3
== END 2023-02-14 10:36 | disposition home or self-care (01) ==
LOC: MEDOUTP 10:37
PROVIDERS: PCP Student in an Organized Health Care Education/Training Program; Referring Provider Specialist; Visit Provider Specialist
DX: D46.20 Refractory anemia with excess of blasts, unspecified (principal)
CPT/HCPCS: 36430; 86850; 86900; 86901; 86920; 86922; P9016; A4216

== ENCOUNTER 2023-02-27 10:20 | Outpatient (CLI) | payer MEDICARE, OTHER, SELFPAY ==
[2023-02-27] MEDS: 0.9% Normal Saline (500mL Bag) 500 ML 15 ML IV (10:35)
[2023-02-27] MEDS: 0.9% NaCl Peripheral Flush Adult/Peds IV (10:35)
[2023-02-27 10:40] VITALS: BP 131/45; PULSE 81; RESP 16; TEMP 36.9; O2SAT 98
[2023-02-27 11:07] VITALS: BP 137/63; PULSE 74; RESP 16; TEMP 36.2; O2SAT 97
[2023-02-27 12:07] VITALS: BP 146/59; PULSE 72; RESP 16; TEMP 36.9; O2SAT 96
[2023-02-27 13:00] VITALS: BP 138/62; PULSE 74; RESP 16; TEMP 36.8; O2SAT 97
[2023-02-27 13:55] VITALS: BP 115/93; BP 139/57; PULSE 71; PULSE 79; RESP 16; TEMP 36.8; TEMP 36.9; O2SAT 95; O2SAT 97
[2023-02-27 16:07] VITALS: BP 126/75; PULSE 75; RESP 16; TEMP 36.4; O2SAT 95
== END 2023-02-27 10:21 | disposition home or self-care (01) ==
LOC: MEDOUTP 10:20
PROVIDERS: PCP Student in an Organized Health Care Education/Training Program; Referring Provider Internal Medicine Hematology & Oncology; Visit Provider Internal Medicine Hematology & Oncology
DX: D46.20 Refractory anemia with excess of blasts, unspecified (principal)
CPT/HCPCS: 36430; 86850; 86900; 86901; 86920; 86922; J7040; P9016; A4216